=== PATIENT | female | born 1955 | race Caucasian/White ===

== ENCOUNTER 2020-07-11 12:00 | Outpatient (CLI) | payer MEDICARE, OTHER, SELFPAY ==
--- NOTE | ~2020-07-11 | XR_ITS ---
XR_CERV2-3V_CR DATE: 07/11/2020 12:22 INDICATION: Neck pain. Popping sound intermittently on left side of neck. No known injury. TECHNIQUE: AP, open-mouth, lateral views COMPARISON: None FINDINGS: There is severe degenerative disc disease and mild retrolisthesis at C3-4, C4-5 and C5-6. Moderate degenerative disc disease at C2-3 and C6-7. There is prominent bilateral uncovertebral joint spurring at C3-4 through C6-7. C1 and C2 are normally aligned and the odontoid process is intact. No fracture or dislocation, locked facet or prevertebral soft tissue swelling. IMPRESSION: Extensive cervical spondylosis Reviewed, dictated and finalized at Location [facility]. Reviewed, dictated and finalized at location A.
== END 2020-07-11 12:01 | disposition home or self-care (01) ==
LOC: CHSIMG 12:05
PROVIDERS: PCP Internal Medicine; Visit Provider Internal Medicine
DX: M54.2 Cervicalgia (principal)
CPT/HCPCS: 72040

== ENCOUNTER 2020-12-15 07:38 | Outpatient (CLI) | payer MEDICARE, OTHER, SELFPAY ==
--- NOTE | ~2020-12-15 | MM_ITS ---
EXAMINATION: MM screening [facility] BI w ruperto HISTORY: Screening mammogram TECHNIQUE: Craniocaudal and mediolateral oblique 3-D tomosynthesis images were obtained and synthetic 2-D images were generated. CAD analysis was submitted and interpreted. COMPARISON: 11/10/2018, 08/14/2017, 07/24/2017 BREAST PARENCHYMAL COMPOSITION: There are scattered areas of fibroglandular density. FINDINGS: RIGHT BREAST: There is focal asymmetry associated indeterminate calcification in the far posterior th ird of the outer breast 11 cm from the nipple. LEFT BREAST: An asymmetry is present in the middle/posterior third of the outer breast 10 cm from the nipple on the craniocaudal view. IMPRESSION: 1. Bilateral breast findings as described above. 2. Additional mammographic views and possible breast ultrasound are recommended. BI-RADS Category 0: Incomplete: Needs additional imaging evaluation. Reviewed, dictated and finalized at location A. IMPRESSION: 1. Bilateral breast findings as described above. 2. Additional mammographic views and possible breast ultrasound are recommended . BI-RADS Category 0: Incomplete: Needs additional imaging evaluation.
== END 2020-12-15 07:39 | disposition home or self-care (01) ==
LOC: CHSIMG 07:39
PROVIDERS: PCP Internal Medicine; Visit Provider Internal Medicine
DX: Z12.31 Encounter for screening mammogram for malignant neoplasm of breast (principal)
CPT/HCPCS: 77063; 77067

== ENCOUNTER 2020-12-22 09:56 | Outpatient (CLI) | payer MEDICARE, OTHER, SELFPAY ==
--- NOTE | ~2020-12-22 | MMUS_ITS ---
EXAMINATION: MM diagnostic [facility] BI w ruperto, US breast RT limited HISTORY: Focal asymmetry and indeterminate calcifications of the right breast and left breast asymmet ry on screening mammogram TECHNIQUE: Additional 3-D tomosynthesis images of the breasts were performed and synthetic 2-D images were generated. CAD analysis was submitted and interpreted. High resolution limited right breast ult rasound was performed. COMPARISON: 12/15/2020, 11/10/2018, 08/14/2017, 07/24/2017 FINDINGS: MAMMOGRAPHIC FINDINGS: Left breast: There is a return to baseline fibroglandular appearance with spot compression of the lef t breast in the area questioned on screening mammogram. Right breast: There are grouped fine pleomorphic calcifications in the far posterior third of the out er breast at the 9:00 location 12 cm from the nipple. There appears to be an associated approximately 2.0 x 0.7 cm mass with indistinct margins. ULTRASOUND: No definite sonographic correlate is identified for the calcifications and possible mass of the right breast. IMPRESSION: 1. Suspicious right breast calcifications. 2. Stereotactic biopsy is recommended. BI-RADS category 4, suspicious findings. Reviewed, dictated and finalized at location A. IMPRESSION: 1. Suspicious right breast calcifications. 2. Stereotactic biopsy is recommended. BI-RADS category 4, suspicious findings.
== END 2020-12-22 09:57 | disposition home or self-care (01) ==
LOC: CHSIMG 09:58
PROVIDERS: PCP Internal Medicine; Visit Provider Internal Medicine
DX: R92.8 Other abnormal and inconclusive findings on diagnostic imaging of breast (principal)
CPT/HCPCS: 76642; 77062; 77066; G0279

== ENCOUNTER 2021-08-15 15:58 | Outpatient (CLI) | payer MEDICARE, OTHER, SELFPAY ==
--- NOTE | ~2021-08-15 | XR_ITS ---
EXAMINATION: XR shoulder LT min 2V, XR humerus LT DATE: 08/15/2021 16:24 INDICATION: Left shoulder and upper arm pain TECHNIQUE: 1. AP internally and externally rotated, AP oblique externally rotated and transscapular Y views of t he left shoulder were obtained. 2. AP and lateral views of the left humerus were obtained. COMPARISON: None FINDINGS: Normal alignment. No fracture. Glenohumeral joint is normal. Moderate acromioclavicular osteoarthrit is. Soft tissues are unremarkable. Visualized portions of the left lung are clear. Moderate thoracic spondylosis. IMPRESSION: 1. Moderate left acromioclavicular osteoarthritis. 2. Moderate thoracic spondylosis. Reviewed, dictated and finalized at location A. IMPRESSION: 1. Moderate left acromioclavicular osteoarthritis. 2. Moderate thoracic spondylosis.
== END 2021-08-15 15:59 | disposition home or self-care (01) ==
LOC: CHSIMG 16:01
PROVIDERS: PCP Internal Medicine; Visit Provider Internal Medicine
DX: M25.512 Pain in left shoulder (principal); M79.622 Pain in left upper arm; Z85.3 Personal history of malignant neoplasm of breast
CPT/HCPCS: 73030; 73060

== ENCOUNTER 2022-05-02 11:28 | Outpatient (CLI) | payer MEDICARE, OTHER, SELFPAY ==
--- NOTE | ~2022-05-02 | XR_ITS ---
Clinical Indication: Palpitations, dyspnea, history of breast cancer PA and lateral views of the chest: Comparison: None Findings: The lungs are clear, without evidence of focal consolidation or pleural effusion. Cardiome diastinal silhouette is within normal limits. Bones and soft tissues are unremarkable. Impression: Normal chest. Reviewed, dictated and finalized at [facility]. TEGY ANALYST Impression: Normal chest.
== END 2022-05-02 11:29 | disposition home or self-care (01) ==
LOC: CHSIMG 11:31
PROVIDERS: PCP Internal Medicine; Visit Provider Internal Medicine
DX: R00.2 Palpitations (principal); R06.00 Dyspnea, unspecified
CPT/HCPCS: 71046

== ENCOUNTER 2022-05-10 09:16 | Outpatient (CLI) | payer MEDICARE, OTHER, SELFPAY ==
--- NOTE | 2022-05-10 01:00 | ECHO_ITS ---
Patient Info Name: Carolin Randle Age: 67 years : 1955 Gender: Female Ht: 65 in Wt: 180 lbs BSA: 1.96 m2 HR: 80 bpm BP: 168 / 86 mmHg Heart Rhythm: Sinus Rhythm Technical Quality: Fair Exam Date: 05/10/2022 12:51 PM Exam Location: [facility] [place] Patient Status: Outpatient Admit Date: 05/10/2022 Staff Ordering Physician: Pranay Velez MD Vice President Of Product Marketing: Gwen Magaña RDCS Attending Provider: Pranay Velez MD Exam Type: CA echo doppler color flow Study Info Indications R06.00 - Dyspnea, unspecified R00.2 - Palpitations Complete two-dimensional, color flow and Doppler transthoracic echocardiogram is performed. Summary 1. Complete two-dimensional, color flow and Doppler transthoracic echocardiogram is performed. 2. Left ventricular chamber dimension is normal. 3. Left ventricular systolic function is normal, estimated at 65-70%. 4. The left ventricular diastolic function is grade I diastolic dysfunction. 5. E/e' 12 is mildly elevated. 6. There is trace tricuspid valve regurgitation. 7. No pulmonary hypertension, estimated pulmonary arterial systolic pressure is 31 mmHg. Left Ventricle E/e' 12 is mildly elevated. Left ventricular chamber dimension is normal. Left ventricular systolic function is normal, estimated at 65-70%. The left ventricular diastolic function is grade I diastolic dysfunction. Right Ventricle Right ventricular systolic function is normal and with normal TAPSE 1.7 cm. Right ventricular chamber dimension is normal. Left Atria Left atrial chamber dimension is normal. Right Atria Right atrial chamber dimension is normal. Aortic Valve The aortic valve is trileaflet. There is no aortic valve stenosis. There is no aortic valve regurgitation. Pulmonic Valve There is no pulmonic regurgitation. Mitral Valve There is no mitral valve stenosis. There is no mitral valve regurgitation. Tricuspid Valve There is trace tricuspid valve regurgitation. No pulmonary hypertension, estimated pulmonary arterial systolic pressure is 31 mmHg. Pericardium/Pleural There is no pericardial effusion. Inferior Vena Cava Normal inferior vena cava with >50% collapse upon inspiration consistent with normal right atrial pressure, 5 mmHg. Aorta The aortic root size at the sinus of Valsalva is normal. Left Ventricular Outflow Tract Name Value Normal LVOT 2D LVOT Diameter 2.0 cm LVOT Doppler LVOT Peak Velocity 135 cm/s LVOT Peak Gradient 7 mmHg LVOT Mean Gradient 3 mmHg LVOT VTI 29 cm LVOT VTI/AV VTI Ratio 0.8 LVOT Stroke Volume 97 ml Pulmonic Valve Name Value Normal RVOT Doppler RVOT Peak Gradient 3 mmHg PV Doppler
--- NOTE | 2022-06-17 08:27 | WPDHOLTEREM ---
Holter/Event Monitor Holter/Event Monitor Date of procedure: 05/10/22 Holter/Event Procedure: Event Monitor Indications: Palpitations Conclusion: 1. 26 days event monitor between 05/10/22-06/11/22. There are 44 available transmissions for analysis. 2. Underlying rhythm is sinus rhythm. HR range 36-132 bpm; average HR 71 bpm. HR at 36 bpm was on 05/24/22 at 04:55. 3. There are occasional premature supraventricular complexes with total burden of <1%. No supraventricular tachycardia. 4. There are occasional premature ventricular complexes with total burden of <1%. No ventricular tachycardia. 5. No significant pauses greater than 2 seconds. 6. Patient reports 21 episodes of symptoms of heart racing, shortness of breath, lightheadedness which demonstrate sinus rhythm, HR range 84-132 bpm with 3 episodes with PAC's.
== END 2022-05-10 09:17 | disposition home or self-care (01) ==
LOC: CHSIMG 09:17
PROVIDERS: PCP Internal Medicine; Visit Provider Internal Medicine
DX: R00.2 Palpitations (principal); R06.00 Dyspnea, unspecified
CPT/HCPCS: 93270; 93306

== ENCOUNTER 2022-08-14 10:24 | Outpatient (CLI) | payer MEDICARE, OTHER, SELFPAY ==
--- NOTE | ~2022-08-14 | DEXA_ITS ---
Bone Density Report Name: EDUAR BARNEY Age: 67 Sex: Female Ethnicity: White Date of : 1955 Indication: postmenopausal; screening for osteoporosis; height loss; cancer; Referring Provider: UNKNOWN, UNKNOWN Study: Bone densitometry was performed. Exam Date: August 14, 2022 Accession number: [id number] Bone Density: Region BMD T-score Z-score Classification AP Spine(L2, L3, L4) 1.073 -0.1 1.9 Normal Femoral Neck (Left) 0.661 -1.7 0.0 Osteopenia Total Hip (Left) 0.792 -1.2 0.1 Osteopenia Femoral Neck (Right) 0.693 -1.4 0.2 Osteopenia Total Hip (Right) 0.825 -1.0 0.4 Normal Femoral Neck Mean 0.677 -1.5 0.1 Osteopenia Total Hip Mean 0.808 -1.1 0.3 Osteopenia World Health Organization criteria for BMD impression classify patients as: Normal (T-score at or above -1.0), Osteopenia (T-score between -1.0 and -2.5), or Osteoporosis (T-score at or below -2.5). 10-year Fracture Risk(1): Major Osteoporotic Fracture 9.3% Hip Fracture 1.2% Reported Risk Factors: [place] (), Neck BMD=0.661, BMI=31.9 (1) FRAX(R) Version 3.08. Fracture probability calculated for an untreated patient. Fracture probability may be lower if the patient has received treatment. Clinical Information Provided by Patient: Has the following medical conditions: Cancer Patient maximum height was 64 Menopause Age: 45 No regular weight bearing exercise Drinks caffeinated beverages Onset of menses at age 16 Number of children 2 Impression: The patient has low bone mass, based on the Left Femoral Neck T-score. Discussion: BONE DENSITY IS LOW AT ONE OR MORE SKELETAL SITES. This patient's lowest T-score is low at one or more skeletal sites. It meets the World Health Organization's (WHO) criteria for ?low bone mass? (T-score between -1.0 and -2.5). The patient's 10-year risk of fracture as calculated by FRAX is less than the threshold where pharmacological therapy is recommended by the National Osteoporosis Foundation (NOF). However, all treatment decisions require clinical judgment and consideration of individual patient factors, including patient preferences, comorbidities, previous drug use, risk factors not captured in the FRAX model (e.g., frailty, falls, vitamin D deficiency, increased bone turnover, interval significant decline in bone density) and possible under or overestimation of fracture risk by FRAX. The patient should follow a healthful lifestyle (good nutrition with adequate calcium and vitamin D, and appropriate weight-bearing exercise). Follow-Up: Consider repeating this study in 2 to 3 years to reassess this patient's status, or sooner if there is some new clinical indication. Reported by: Dr. Adam Keys on 08/14/2022 10:49:00 AM.
== END 2022-08-14 10:25 | disposition home or self-care (01) ==
LOC: CHSIMG 10:25
PROVIDERS: PCP Internal Medicine
DX: C50.811 Malignant neoplasm of overlapping sites of right female breast (principal); Z17.0 Estrogen receptor positive status [ER+]; Z79.811 Long term (current) use of aromatase inhibitors; M85.89 Other specified disorders of bone density and structure, multiple sites
CPT/HCPCS: 77080

== ENCOUNTER 2023-06-13 07:12 | Outpatient (CLI) | payer MEDICARE, OTHER, SELFPAY ==
--- NOTE | ~2023-06-13 | US_ITS ---
EXAMINATION: US aorta DATE: 06/13/2023 08:07 INDICATION: Abdominal aortic aneurysm screening TECHNIQUE: Grayscale, color Doppler, and pulsed Doppler images of the aorta and common iliac arteries were obtained. COMPARISON: None. FINDINGS: The proximal aorta measures 2.6 cm. The mid aorta measures 2.1 cm. The distal aorta measures 1.6 cm. The right common iliac artery measures 1.1 cm. The left common iliac artery measures 1.0 cm. IMPRESSION: 1. Normal caliber abdominal aorta Reviewed, dictated and finalized at location A. RATORY ANIMAL FACILITY SUPERVISOR
--- NOTE | ~2023-06-13 | XR_ITS ---
AP and lateral views of the right hip Clinical history: Pain Findings: No acute fracture or dislocation is seen. Osseous alignment is anatomic. The right hip join t is preserved. Soft tissues are unremarkable. Impression: No significant abnormality is seen. Reviewed, dictated and finalized at location M. OW SHADE RING COVERER Impression: No significant abnormality is seen.
--- NOTE | ~2023-06-13 | XR_ITS ---
Lumbosacral Spine: AP and lateral views Clinical History: Pain Findings: The normal lordotic curve is maintained. The vertebral bodies and posterior elements are i ntact. There is moderate to advanced degenerative disc narrowing at L3-L4, L4-L5. There is mild air d istended at L5-S1. There is mild facet arthropathy from L4 through S1. The sacroiliac joints are norm ally outlined. Impression: Mild degenerative spondylosis, as above. Reviewed, dictated and finalized at location M. D WASTE LANDFILL TECHNICIAN Impression: Mild degenerative spondylosis, as above.
--- NOTE | ~2023-06-13 | XR_ITS ---
AP and lateral views of the left hip Clinical history: Pain Findings: No acute fracture or dislocation is seen. Osseous alignment is anatomic. Left hip joint is preserved. Soft tissues are unremarkable. Impression: No significant abnormality is seen. Reviewed, dictated and finalized at location M. L OR MOTEL MANAGER Impression: No significant abnormality is seen.
--- NOTE | ~2023-06-13 | XR_ITS ---
Right Knee Technique: AP, lateral, and sunrise views were obtained. Clinical History: Pain Findings: No fracture or dislocation is seen. Osseous alignment is anatomic. Joint spaces are preserv ed without degenerative or erosive change. Soft tissues are unremarkable. No joint effusion is seen. Impression: Unremarkable right knee radiographs. Reviewed, dictated and finalized at location . [facility] Impression: Unremarkable right knee radiographs.
--- NOTE | ~2023-06-13 | XR_ITS ---
Left Knee Technique: AP, lateral, and sunrise views were obtained. Clinical History: Pain Findings: No fracture or dislocation is seen. Osseous alignment is anatomic. Joint spaces are preserv ed without degenerative or erosive change. Soft tissues are unremarkable. No joint effusion is seen. Impression: Unremarkable left knee radiographs. Reviewed, dictated and finalized at location . TAL SLICER Impression: Unremarkable left knee radiographs.
--- NOTE | ~2023-06-13 | US_ITS ---
EXAMINATION: US arterial ankle brachial ind DATE: 06/13/2023 08:07 INDICATION: Peripheral arterial occlusive disease with bilateral lower limb pain and claudication. TECHNIQUE: Segmental pressures and plethysmographic and Doppler waveforms of the brachial and lower e xtremity arteries were obtained. COMPARISON: None. FINDINGS: Right and left brachial artery pressures of 153 mm Hg and 153 mm Hg, respectively, are concordant (no rmal difference <= 30 mmHg). The right ankle-brachial index ([place]) is 1.11 (normal >= 0.9-1.0). The right great toe-brachial index (TBI) is 1.18 (normal >= 0.65). Arterial Doppler waveforms biphasic at the right dorsalis pedis arter y and triphasic at the right posterior tibial artery with brisk systolic upstrokes at both right post erior tibial and dorsalis pedis arteries. The left [place] is 1.16. The left TBI is 1.12. Arterial Doppler waveforms are biphasic with brisk systol ic upstrokes at both left posterior tibial and dorsalis pedis arteries. IMPRESSION: 1. No significant arterial occlusive disease with normal bilateral ABIs and TBIs. Reviewed, dictated and finalized at location A. ICE CENTER TECHNICIAN IMPRESSION: 1. No significant arterial occlusive disease with normal bilateral ABIs and TBI s.
== END 2023-06-13 07:13 | disposition home or self-care (01) ==
LOC: CHSIMG 07:16
PROVIDERS: PCP Internal Medicine; Visit Provider Internal Medicine
DX: I73.9 Peripheral vascular disease, unspecified (principal); I71.40 Abdominal aortic aneurysm, without rupture, unspecified; I67.1 Cerebral aneurysm, nonruptured; M43.06 Spondylolysis, lumbar region
CPT/HCPCS: 72100; 73502; 73562; 76775; 93922

== ENCOUNTER 2023-06-19 09:47 | Outpatient (CLI) | payer MEDICARE, OTHER, SELFPAY ==
--- NOTE | ~2023-06-19 | MR_ITS ---
EXAMINATION: MRA neck wo con, MRA brain wo con DATE: 06/19/2023 10:45 INDICATION: Family members with intracranial aneurysm TECHNIQUE: 1. Magnetic resonance angiography (MRA) of the brain was performed without intravenous contrast by th e 3D [id number] technique. 2. Magnetic resonance angiography (MRA) of the neck was performed without intravenous contrast. Seque nces included axial 3D-time of flight T1-weighted FSPGR. COMPARISON: None. FINDINGS: Head MRA: There is normal flow related signal seen within the vertebral, basilar and internal carotid arteries. The vertebral arteries are codominant. There is no proximal stenosis. There are no aneurysms identi fied. Both A1 and P1 segments are patent. Flow in the cerebral arteries is symmetric. Neck MRA: There is 0% stenosis of the right carotid bulb relative to normal distal artery lumen diameter (NASCE T criteria). There is 0% stenosis of the left carotid bulb relative to normal distal artery lumen di ameter. The vertebral arteries are codominant with no evident hemodynamically significant stenosis. M oderate cervical spondylosis. IMPRESSION: 1. 0% stenosis of the right carotid bulb relative to normal distal artery lumen diameter (NASCET crit eria). 2. 0% stenosis of the left carotid bulb relative to normal distal artery lumen diameter. 3. Unremarkable cerebral MR angiogram with no evident hemodynamically significant stenosis or aneurys m. Reviewed, dictated and finalized at location A. MOTIVE REPAIRER DIESEL IMPRESSION: 1. 0% stenosis of the right carotid bulb relative to normal distal artery lumen diameter (NASCET criteria). 2. 0% stenosis of the left carotid bulb relative to normal distal artery lumen diameter. 3. Unremarkable cerebral MR angiogram with no evident hemodynamically significa nt stenosis or aneurysm.
== END 2023-06-19 09:48 | disposition home or self-care (01) ==
LOC: CHSIMG 09:48
PROVIDERS: PCP Internal Medicine; Visit Provider Internal Medicine
DX: I73.9 Peripheral vascular disease, unspecified (principal); I67.1 Cerebral aneurysm, nonruptured
CPT/HCPCS: 70544; 70547

== ENCOUNTER 2024-02-23 08:44 | Inpatient (IN) | payer MEDICARE, OTHER, SELFPAY ==
[2024-02-23] VITALS (17 sets, daily range): BP systolic 118–157; BP diastolic 51–82; PULSE 87–114; RESP 16–24; TEMP 36.5–37.8; O2SAT 88–97; BMI 29.9
--- NOTE | ~2024-02-23 | CT_ITS ---
EXAMINATION: CTA chest PE protocol DATE: 02/23/2024 11:37 INDICATION: Shortness of breath. Hypoxia. Tachycardia. TECHNIQUE: Computed tomography angiography (CTA) of the chest was performed with 100 mL Omnipaque-350 intravenous contrast timed to evaluate the pulmonary arteries. Coronal maximum intensity projection 3D-reconstructions were created by the technologist. Automated exposure control and iterative reconst ruction technique were employed. The dose-length product was 282.43 mGy-cm. COMPARISON: Chest 2 views 02/23/2024 FINDINGS: There are airspace and groundglass opacities in the lower lobes, consistent with pneumonia. There are trace pleural effusions. There is a 7 mm nodule in left thyroid lobe, likely not clinicall y significant. The heart size is normal. No pericardial effusion. There is no pulmonary embolus. Ther e is mild mediastinal and bilateral hilar lymphadenopathy, likely reactive. There is severe thoracic spondylosis. IMPRESSION: 1. Bilateral lower lobe pneumonia. 2. Mild mediastinal and bilateral hilar lymphadenopathy, likely reactive. 3. No pulmonary embolus. Reviewed, dictated and finalized at location B.
--- NOTE | ~2024-02-23 | XR_ITS ---
EXAMINATION: XR chest 2V DATE: 02/23/2024 09:12 INDICATION: Cough, shortness of breath TECHNIQUE: frontal and lateral views of the chest were obtained. COMPARISON: Chest radiograph dated 05/02/2022 FINDINGS: Patchy airspace opacities in the posterior lower lung zones. No pleural effusion or pneumothorax. The cardiomediastinal silhouette is normal. Moderate thoracic spondylosis. IMPRESSION: 1. Patchy airspace opacities at the inferior lower lung zones consistent with atelectasis and/or pneu monia. Reviewed, dictated and finalized at location A. IMPRESSION: 1. Patchy airspace opacities at the inferior lower lung zones consistent with a telectasis and/or pneumonia.
--- NOTE | 2024-02-23 08:59 | ECG_ITS ---
Test Date: 2024-02-23 09:17:56 Measurements Intervals [place] Rate: 106 P: 67 [place]: 154 QRS: 40 QRSD: 82 T: 73 QT: 317 QTc: 421 Interpretive Statements SINUS TACHYCARDIA No previous ECG available for comparison Electronically Signed On 02-24-2024 09:36:43 CDT by Carlos Howell M.D.
--- NOTE | 2024-02-23 09:01 | ED.URI ---
HPI - URI/Sore Throat General Chief Complaint: Upper Respiratory Infection Stated Complaint: Cold Symptoms Time Seen by Provider: 02/23/24 08:51 Source: patient Mode of arrival: ambulatory Limitations: no limitations History of Present Illness HPI Narrative: 69 years old white female came to the emergency room by private car complaining of feeling bad all over, had cold symptoms over 2 weeks ago, getting worse, currently productive cough of yellowish sputum, can not stand up can not walk because of general weakness. Patient reports nasal and postnasal discharge, hoarseness of voice. History of hypertension, hyperlipidemia, breast cancer status post management over 3 years ago Patient denies sick contact, scheduled to see her family physician in few hours today. Related Data Home Medications Medication Instructions Recorded Confirmed anastrozole 1 mg tablet 1 mg PO DAILY 02/23/24 02/23/24 aspirin 81 mg chewable tablet 81 mg PO DAILY 02/23/24 02/23/24 atorvastatin 20 mg tablet 20 mg PO DAILY 02/23/24 02/23/24 diltiazem HCl 300 mg 300 mg PO DAILY 02/23/24 02/23/24 capsule,extended release 24 hr lisinopril 20 1 tablet PO DAILY 02/23/24 02/23/24 mg-hydrochlorothiazide 12.5 mg tablet magnesium 250 mg tablet 250 mg PO DAILY 02/23/24 02/23/24 venlafaxine 37.5 mg 37.5 mg PO DAILY 02/23/24 02/23/24 capsule,extended release 24 hr Allergies Allergy/AdvReac Type Severity Reaction Status Date / Time triamterene Allergy Hives Verified 02/23/24 08:50 Review of Systems Review of Systems: All systems reviewed & are unremarkable except as noted in HPI and below Exam Narrative: General appearance: Well-developed, well-nourished Skin: Normal color Head: Normocephalic, nontraumatic Eyes: Clear conjunctiva ENT: Oropharynx normal, ears normal, nose normal Neck: Supple, nontender Chest and respiratory: Airway patent, no respiratory distress, no accessory muscle use , intermittent productive cough Heart: Regular rate/rhythm Abdomen: Soft, nontender, no organomegaly, quiet bowel sounds Vascular: Normal peripheral pulses, normal capillary refill. Musculoskeletal: Normal range of motion, nontender back Neurologic: Alert and oriented ?3, WIRE WEAVER HELPER is normal as tested, no gross motor deficit Course Vital Signs Vital signs: Vital Signs Temperature 37.7 C H 02/23/24 08:44 Pulse Rate 114 H 02/23/24 08:44 Respiratory Rate 24 H 02/23/24 08:44 Blood Pressure 157/82 H 02/23/24 08:44 Pulse Oximetry 91 02/23/24 08:44 Oxygen Delivery Room Air 02/23/24 08:44 Temperature 37.7 C H 02/23/24 08:55 Pulse Rate 104 H 02/23/24 09:35 Respiratory Rate 20 02/23/24 09:35 Blood Pressure 157/82 H 02/23/24 08:55 Pulse Oximetry 95 02/23/24 09:35 Oxygen Delivery Room Air 02/23/24 08:55 MDM - URI/Sore Throat MDM Narrative Medical decision making narrative: patient came to the ED by private car complaining of productive cough and cold symptoms started over 2 weeks ago and gradually getting worse. Vital signs showing heart rate of 114, blood pressure 157/82, temperature 37.7? Physical examination showing ill looking patient, was intermittent productive cough Differential diagnosis respiratory viral infection, secondary bacterial infection, pneumonia, electrolyte imbalance, dehydration Differential Diagnosis Differential diagnosis: Likely upper respiratory infection, otitis media, sinusitis, bronchitis and other (Pneumonia) Medical Records Attestation: I reviewed the patient's medical records. Lab Data Attestation: I reviewed the patient's lab results. 02/23/24 09:23 02/23/24 09:23 Labs: Lab Results 02/23/24 02/23/24 Range/Units 09:13 09:23 WBC 13.0 H (4.8-10.8) K/mm3 RBC 3.90 L (4.20-5.40) M/mm3 Hgb 11.6 L (11.7-13.8) g/dL Hct 34.6 L (35.0-42.0) % MCV 88.7 (78.0-102.0) fL MCH 29.7 (27.0-31.0) pg MCHC 33.5 (32-36) g/dL RDW 12.4 (11.6-14.4) % Plt Count 384 (150-420) K/mm3 MPV 9.4 (9.2-11.8) fl Immature Gran % (Auto) 1.2 H (0.0-0.0) % Neut % (Auto) 83.6 H (50.0-70.0) % Lymph % (Auto) 6.0 L (18.0-42.0) % [place] % (Auto) 8.9 (2.0-11.0) % Eos % (Auto) 0.1 L (1.0-6.0) % Baso % (Auto) 0.2 (0.0-1.0) % Lymph # (Auto) 0.78 L (1.10-4.50) K/mm3 [place] # (Auto) 1.16 H (0.10-0.90) K/mm3 Eos # (Auto) 0.01 L (0.02-0.50) K/mm3 Baso # (Auto) 0.03 (0.00-0.10) K/mm3 Abs Immat Gran (auto) 0.15 H (0.00-0.00) K/mm3 Absolute Neuts (auto) 10.87 H (1.70-7.20) K/mm3 Absolute Nucleated RBC 0.00 (0.00-0.00) K/mm3 Nucleated RBC % 0.0 (0-0.0) % PT Pending INR Pending APTT Pending Sodium Pending Potassium Pending Chloride Pending Carbon Dioxide Pending Anion Gap Pending BUN Pending Creatinine Pending Estim Creat Clear Calc Pending Estimated GFR Pending Glucose Pending Calculated Osmolality Pending Lactic Acid Pending Calcium Pending Total Bilirubin Pending AST Pending ALT Pending Alkaline Phosphatase Pending C-Reactive Protein Pending Total Protein Pending Albumin Pending Influenza A (RT-PCR) Pending Influenza B (RT-PCR) Pending RSV (RT-PCR) Pending SARS-CoV-2 RNA (RT-PCR) Pending ECG Data EKG #1: Attestation: I personally reviewed and interpreted this ECG as follows: ECG completion date: 02/23/24 ECG completion time: 09:21 Interpretation: sinus tachycardia at 106 beats per minute., abnormal rhythm EKG Critical Care Time Critical Care Time Critical Care Time: No Discharge Plan Discharge Patient Disposition: Still a Patient Prescriptions: No Action anastrozole 1 mg tablet 1 mg PO DAILY venlafaxine 37.5 mg capsule,extended release 24hr 37.5 mg PO DAILY atorvastatin 20 mg tablet 20 mg PO DAILY lisinopril-hydrochlorothiazide 20-12.5 mg tablet 1 tablet PO DAILY diltiazem HCl 300 mg capsule,extended release 24hr 300 mg PO DAILY aspirin 81 mg tablet,chewable 81 mg PO DAILY magnesium 250 mg Tablet 250 mg PO DAILY Follow-up/Referrals: Pranay eVlez MD [Primary Care Provider] -
[2024-02-23] MEDS: ALBUTEROL SULFATE NEB 2.5 MG/3 ML INH INHALATION (09:31)
[2024-02-23] MEDS: ACETAMINOPHEN 325 MG TABLET 650 MG PO ×2 (09:38→20:59)
[2024-02-23 09:44] LABS: Basophils Absolute Auto 0.03 K/mm3 (0.00-0.10); Basophils Percent Auto 0.2 % (0.0-1.0); Eosinophils Absolute Auto 0.01 K/mm3 (0.02-0.50); Eosinophils Percent Auto 0.1 % (1.0-6.0); Hematocrit 34.6 % (35.0-42.0); Hemoglobin 11.6 g/dL (11.7-13.8); Immature Granulocyte Absolute 0.15 K/mm3 (0.00-0.00); Immature Granulocyte Percent A 1.2 % (0.0-0.0); Lymphocytes Absolute Auto 0.78 K/mm3 (1.10-4.50); Mean Corpuscular HGB Conc 33.5 g/dL (32-36); Mean Corpuscular Hemoglobin 29.7 pg (27.0-31.0); Mean Corpuscular Volume 88.7 fL (78.0-102.0); Mean Platelet Volume 9.4 fl (9.2-11.8); Monocytes Absolute Auto 1.16 K/mm3 (0.10-0.90); Monocytes Percent Auto 8.9 % (2.0-11.0); Neutrophils Absolute Auto 10.87 K/mm3 (1.70-7.20); Neutrophils Percent Auto 83.6 % (50.0-70.0); Platelet Count Result 384 K/mm3 (150-420); Red Cell Distribution Width 12.4 % (11.6-14.4)
[2024-02-23 09:51] LABS: SARS-CoV-2 RNA PCR Negative (Negative)
[2024-02-23 09:52] LABS: INR 1.2; Partial Thromboplastin Time 34.7 Sec (23.9-30.70); Prothrombin Time 13.2 Seconds (9.50-12.1)
[2024-02-23 09:54] LABS: Influenza A QL RT-PCR Negative (Negative); Influenza B QL RT-PCR Negative (Negative); RSV RNA, RT-PCR Negative (Negative)
[2024-02-23 09:54] LABS: Alanine Aminotransferase 29 U/L (14-59); Albumin Level 2.5 g/dL (3.4-5.0); Alkaline Phosphatase 110 U/L (46-116); Anion Gap 12 mmol/L (4-12); Aspartate Amino Transferase 30 U/L (15-37); Bilirubin,Total 0.7 mg/dL (0.00-1.00); Blood Urea Nitrogen 11 mg/dL (7-18); Calcium 8.8 mg/dL (8.5-10.1); Carbon Dioxide 29 mmol/L (21-32); Chloride 97 mmol/L (98-108); Estimated CRCL calculation 48 ml/min; Estimated Glomerular Filt Rate 55; Glucose 109 mg/dL (70-99); Osmolality Calculated 286 mOsm/kg (285-295); Potassium 3.4 mmol/L (3.5-5.1); Sodium 138 mmol/L (136-145); Total Protein 7.3 g/dL (6.4-8.2)
[2024-02-23 09:57] LABS: CRP 23.5 mg/dL (0.0-0.9)
--- NOTE | 2024-02-23 09:57 | PC.NURSE ---
PT IS LYING ON STRETCHER WITH AT BEDSIDE. PT IS AWAITING ADMISSION TO [facility] FOR [facility]NEUMONIA. PT DENIES ANY NEEDS OR COMPLAINTS, IS AWARE OF PLAN OF CARE. PT HAS IV MEDICATIONS INFUSING WITHOUT DIFFICULTY. NAD NOTED. VSS PER MONITOR. WILL CONTINUE TO MONITOR.
[2024-02-23 09:59] LABS: Lactic Acid Reflex 1.4 mmol/L (0.4-2.0)
--- NOTE | 2024-02-23 09:59 | PC.NURSE ---
PT IS TO BE ADMITTED TO ROOM 204, PT AND UPDATED ON STATUS. BELONGINGS LIST COMPLETED.
[2024-02-23] MEDS: AZITHROMYCIN 500 MG/NS 250 ML 500 MG/250 ML BAG 250 MG IVPB (10:10)
--- NOTE | 2024-02-23 10:55 | P.HP_ITS ---
H&P: HPI History of Present Illness Date/Time: 02/23/24 10:55 Chief Complaint: SOB/Productive Cough Narrative: patient is a 69-year-old female who presented to the emergency department via private vehicle with complaints of worsening shortness of breath and productive cough. Patient reports symptoms began about 2 weeks ago with cough and shortness of breath she thought it was just a upper respiratory infection and had taken some OTC cough medicine. Patient presents today with no relief of symptoms and worsening productive cough. Patient's past medical history includes hypertension and hyperlipidemia and past medical history breast cancer. patient denied any chest pain, fever chills prior to admission but did endorse nausea, shortness of breath and productive cough. Initial findings in the emergency department showed patient to be tachycardic, tachypnea, febrile, with leukocytosis, and CXR showing patchy ear spaces and opacities in inferior lower lung zones suggestive of pneumonia. patient was also found to be hypoxic at 80% on room air she will be admitted to the medical unit for acute respiratory failure with hypoxia secondary to pneumonia and sepsis without septic shock. Review of Systems Review of Systems: All systems reviewed & are unremarkable except as noted in HPI and below PMFSH Family History Family History Other Acute myocardial infarction Cerebrovascular accident Hypertension Social History Social History Smoking status: Never smoker Alcohol intake: never Substance use: never Substance use type: does not use Do You Feel Safe in your Home?: Yes Lack of Transportation: YES Lack of Food: Never True Current Housing: I Have Housing Concerned About Future Housing: No Difficulty Paying Gas/Electric Bills: No Difficulty Paying for Meds: No Currently Unemployed: No Education: High School Diploma/GED Difficulty w/ Childcare or Family Care: No Spiritual care concerns: No Meds Home Medications and Allergies Home Medications Medication Instructions Recorded Confirmed Type anastrozole 1 mg tablet 1 mg PO DAILY 02/23/24 02/23/24 History aspirin 81 mg chewable tablet 81 mg PO DAILY 02/23/24 02/23/24 History atorvastatin 20 mg tablet 20 mg PO DAILY 02/23/24 02/23/24 History diltiazem HCl 300 mg 300 mg PO DAILY 02/23/24 02/23/24 History capsule,extended release 24 hr lisinopril 20 1 tablet PO DAILY 02/23/24 02/23/24 History mg-hydrochlorothiazide 12.5 mg tablet magnesium 250 mg tablet 250 mg PO DAILY 02/23/24 02/23/24 History venlafaxine 37.5 mg 37.5 mg PO DAILY 02/23/24 02/23/24 History capsule,extended release 24 hr Allergies Allergy/AdvReac Type Severity Reaction Status Date / Time triamterene Allergy Hives Verified 02/23/24 08:50 Vital Signs Vital Signs - 24 hr 02/23/24 08:44 02/23/24 08:44 02/23/24 08:44 Temperature 99.8 F H Pulse Rate 114 H Respiratory Rate 24 H Blood Pressure 157/82 H Pulse Oximetry 91 Oxygen Delivery Room Air Room Air Room Air 02/23/24 09:28 02/23/24 09:35 02/23/24 08:50 Temperature Pulse Rate 105 H 104 H 110 H Respiratory Rate 16 20 19 Blood Pressure 157/82 H Pulse Oximetry 95 95 91 Oxygen Delivery 02/23/24 09:01 02/23/24 09:11 02/23/24 09:16 Temperature Pulse Rate 107 H 108 H Respiratory Rate 21 H 17 Blood Pressure 131/76 149/75 H 129/65 Pulse Oximetry 90 92 90 Oxygen Delivery 02/23/24 09:46 02/23/24 10:01 02/23/24 10:11 Temperature 100.0 F H Pulse Rate 104 H 105 H Respiratory Rate 20 18 22 H Blood Pressure 127/74 130/69 Pulse Oximetry 88 L 92 90 Oxygen Delivery Room Air Room Air 02/23/24 08:55 Temperature 99.8 F H Pulse Rate 114 H Respiratory Rate 24 H Blood Pressure 157/82 H Pulse Oximetry 91 Oxygen Delivery Room Air Exam Narrative: * GENERAL: Pleasant Alert and oriented x 3. female in No acute distress. * EYES: EOMI. No scleral icterus. PERRLA. * HEENT: Moist mucous membranes. * LUNGS: Tachypnea, productive cough, use of accessory muscle, Rhonchi bilateral LL * CARDIOVASCULAR: Tachycardia and rhythm. No murmur. No JVD. S1-S2 * ABDOMEN: Soft, non tenderness and non-distended. No palpable masses. * EXTREMITIES: No edema. Non-tender * SKIN: No rashes or lesions. Skin warm, dry. * NEUROLOGIC: No focal neurological deficits. CN II-XII grossly intact * PSYCHIATRIC: Appropriate mood and affect. Good judgement and insight. H&P: Results Labs Labs: Short CBC 02/23/24 Range/Units 09:23 WBC 13.0 H (4.8-10.8) K/mm3 Hgb 11.6 L (11.7-13.8) g/dL Hct 34.6 L (35.0-42.0) % Plt Count 384 (150-420) K/mm3 BMP 02/23/24 09:23 Sodium 138 Potassium 3.4 L Chloride 97 L Carbon Dioxide 29 BUN 11 Creatinine 1.00 Glucose 109 H Calcium 8.8 Liver Function 02/23/24 Range/Units 09:23 Total Bilirubin 0.7 (0.00-1.00) mg/dL AST 30 (15-37) U/L ALT 29 (14-59) U/L Alkaline Phosphatase 110 (46-116) U/L Albumin 2.5 L (3.4-5.0) g/dL Imaging Chest x-ray: Radiologist's impression: EXAMINATION: XR chest 2V DATE: 02/23/2024 09:12 INDICATION: Cough, shortness of breath TECHNIQUE: frontal and lateral views of the chest were obtained. COMPARISON: Chest radiograph dated 05/02/2022 FINDINGS: Patchy airspace opacities in the posterior lower lung zones. No pleural effusion or pneumothorax. The cardiomediastinal silhouette is normal. Moderate thoracic spondylosis. IMPRESSION: 1. Patchy airspace opacities at the inferior lower lung zones consistent with atelectasis and/or pneumonia. Assessment and Plan Assessment and plan (1) Sepsis without septic shock: Code(s): A41.9 - Sepsis, unspecified organism Status: Acute Assessment and Plan: * Without septic shock secondary to Pneumonia * Tachycardia, tachypnea, febrile, Leukocytosis, and CXR with Pneumonia * Rocephin and azithromycin * Monitor lactic acid levels q6hr. 1.2 POA * Repeat CBC, CMP. * Two sets of blood cultures pending * C-reactive proteins elevated * PTT and PT, INR. * Cardiac monitoring (2) Acute respiratory failure with hypoxia: Code(s): J96.01 - Acute respiratory failure with hypoxia Status: Acute Assessment and Plan: * SPO2 88% on RA POA * improved with supplemental oxygen 2L wean as tolerated * Secondary to bilateral pneumonia * Duonebs * azithromycin and Rocephin * DuoNebs * CTA pending to R/O PE (3) Community acquired pneumonia: Code(s): J18.9 - Pneumonia, unspecified organism Status: Acute Assessment and Plan: * Bronchodilators. * Chest x-ray bilateral Opacities * incentive spirometry while awake. * sputum culture ordered * influenza/COVID/RSV negative * Legionella, pneumococcal, mycoplasma * mucolytics * antipyretics * Rocephin and azithromycin * MRSA pending * supplemental oxygen therapy to maintain oxygen 92% * CMP/CBC daily * IV fluids x 1L mildly dehydrated (4) Hypertension: Code(s): I10 - Essential (primary) hypertension Status: Acute Assessment and Plan: * Stable * Resumed * Cardizem/ hydrochlorothiazide and lisinopril * monitor BP per unit protocol (5) Hyperlipidemia: Code(s): E78.5 - Hyperlipidemia, unspecified Status: Acute Assessment and Plan: * resumed Statin (6) Hypokalemia: Code(s): E87.6 - Hypokalemia Status: Acute Assessment and Plan: * 3.4 POA * 40meq * repeat BMP * cardiac monitoring Plan Code status: Full code per patient DVT prophylaxis: Lovenox Stress ulcer prophylaxis: Protonix 40 daily PT/OT notes: Ambulatory Disposition: patient was admitted to the medical unit for acute respiratory failure with hypoxia secondary to sepsis without septic shock from bilateral pneumonia. will continue with IV antibiotic therapy, DuoNebs mucolytics pending cultures will deescalate antibiotics per cultures and continue to wean oxygen as tolerated. patient is ambulatory plan will be to discharge to home when medically stable. Quality VTE Prophylaxis VTE prophylaxis: pharmacologic ordered -Patient's previous records reviewed on admission -ER notes reviewed in detail on admission -discussed all findings and current treatment plan with patient/Family/POA -Consultations reviewed for recommendations -Patient's disposition for safe discharge discussed with case repairer Dictation performed by [employer] direct speech recognition software, therefore dispensing lead variants and typographical errors may occur. Hospitalist MIPS Advance Care Plan I have confirmed that the patient's Advanced Care Plan is present, code status is documented, or surrogate decision maker is listed in patient medical record.: Yes Medication Reconciliation I have utilized all available resources to obtain, update and review the patients current medications (includes all prescriptions, OTC, herbals, cannabis, and nutritional supplements).: Yes The patient is not eligible for med reconciliation; the patient is in a emergent medical situation where delaying treatment would jeopardize the patients health.: No
--- NOTE | 2024-02-23 10:57 | ADMGEN ---
This patient, Carolin Randle, was admitted to 2nd Floor Room 204-1. Patient/family oriented to hospital policies and general routines including ID bracelet, bed and alarms, visiting hours, pain management, procedures, bathroom and other care routines, personal items, smoking policy, room service/diet, and visiting hours. Information on how to activate the Rapid Response Team has been discussed. Patient/Family are encouraged to report perceived risks to care and to ask questions if they do not understand what they are told or what they should do.
[2024-02-23] MEDS: dilTIAZem HCL CD 120 MG CAP.24HR PO (11:18)
[2024-02-23] MEDS: MAGNESIUM OXIDE 400 MG TABLET PO (11:20)
[2024-02-23] MEDS: VENLAFAXINE HCL XR 37.5 MG CAP PO (11:20)
[2024-02-23] MEDS: ATORVASTATIN 10 MG TABLET 20 MG PO (11:20)
[2024-02-23] MEDS: ASPIRIN 81 MG CHEWABLE TABLET PO (11:21)
[2024-02-23] MEDS: POTASSIUM CHLORIDE 20 MEQ ER TABLET 40 MEQ PO (11:21)
[2024-02-23] MEDS: dilTIAZem HCL CD 180 MG CAP.24HR PO (11:22)
--- NOTE | 2024-02-23 11:27 | PC.NURSE ---
Left floor for CT scan.
[2024-02-23 11:37] LABS: Magnesium 1.8 mg/dL (1.8-2.4)
[2024-02-23] MEDS: SODIUM CHLORIDE 0.9% IV 1,000 ML 100 ML IV CONT (11:57)
[2024-02-23] MEDS: IPRATROPIUM 0.5 MG/ALBUTEROL SULFATE 2.5 MG AMPUL.NEB 3 ML INHALATION ×2 (13:25→16:32)
[2024-02-23 13:44] LABS: MRSA (PCR) NOT DETECTED (NOT DETECTE)
[2024-02-23] MEDS: BENZONATATE 100 MG CAPSULE PO (16:45)
[2024-02-23] MEDS: guaiFENesin 12 HR 600 MG TABCR 1200 MG PO (20:54)
[2024-02-24] VITALS (20 sets, daily range): BP systolic 107–131; BP diastolic 50–70; PULSE 68–94; RESP 16–20; TEMP 36.3–37.8; O2SAT 87–97
[2024-02-24] MEDS: IPRATROPIUM 0.5 MG/ALBUTEROL SULFATE 2.5 MG AMPUL.NEB 3 ML INHALATION ×4 (00:47→16:40)
[2024-02-24] MEDS: BENZONATATE 100 MG CAPSULE PO ×2 (01:28→20:21)
[2024-02-24 05:45] LABS: Basophils Absolute Auto 0.04 K/mm3 (0.00-0.10); Basophils Percent Auto 0.3 % (0.0-1.0); Eosinophils Absolute Auto 0.07 K/mm3 (0.02-0.50); Eosinophils Percent Auto 0.6 % (1.0-6.0); Hematocrit 28.5 % (35.0-42.0); Hemoglobin 9.5 g/dL (11.7-13.8); Immature Granulocyte Absolute 0.07 K/mm3 (0.00-0.00); Immature Granulocyte Percent A 0.6 % (0.0-0.0); Lymphocytes Absolute Auto 1.04 K/mm3 (1.10-4.50); Lymphocytes Percent Auto 8.8 % (18.0-42.0); Mean Corpuscular HGB Conc 33.3 g/dL (32-36); Mean Corpuscular Hemoglobin 29.8 pg (27.0-31.0); Mean Corpuscular Volume 89.3 fL (78.0-102.0); Mean Platelet Volume 9.3 fl (9.2-11.8); Monocytes Absolute Auto 0.95 K/mm3 (0.10-0.90); Neutrophils Absolute Auto 9.66 K/mm3 (1.70-7.20); Neutrophils Percent Auto 81.7 % (50.0-70.0); Platelet Count Result 333 K/mm3 (150-420); Red Blood Count 3.19 M/mm3 (4.20-5.40); Red Cell Distribution Width 12.7 % (11.6-14.4); White Blood Count 11.8 K/mm3 (4.8-10.8)
[2024-02-24 06:02] LABS: Alanine Aminotransferase 47 U/L (14-59); Albumin Level 2.1 g/dL (3.4-5.0); Alkaline Phosphatase 102 U/L (46-116); Anion Gap 9 mmol/L (4-12); Aspartate Amino Transferase 51 U/L (15-37); Bilirubin,Total 0.5 mg/dL (0.00-1.00); Blood Urea Nitrogen 9 mg/dL (7-18); Calcium 8.5 mg/dL (8.5-10.1); Carbon Dioxide 29 mmol/L (21-32); Chloride 103 mmol/L (98-108); Estimated CRCL calculation 51 ml/min; Estimated Glomerular Filt Rate 60; Glucose 96 mg/dL (70-99); Osmolality Calculated 290 mOsm/kg (285-295); Potassium 3.8 mmol/L (3.5-5.1); Sodium 141 mmol/L (136-145); Total Protein 6.2 g/dL (6.4-8.2)
--- NOTE | 2024-02-24 08:10 | P.PNIM_ITS ---
Progress Note: A&P Assessment and Plan (1) Sepsis without septic shock: Code(s): A41.9 - Sepsis, unspecified organism Status: Acute Assessment and Plan: * Without septic shock secondary to Pneumonia * Sputum culture penidng * Tachycardia, tachypnea, febrile, Leukocytosis, and CXR with Pneumonia * Rocephin and azithromycin * Monitor lactic acid levels q6hr. 1.2 POA * Repeat CBC, CMP. * Two sets of blood cultures pending * C-reactive proteins elevated * PTT and PT, INR. * Cardiac monitoring (2) Acute respiratory failure with hypoxia: Code(s): J96.01 - Acute respiratory failure with hypoxia Status: Acute Assessment and Plan: * SPO2 88% on RA POA * improved with supplemental oxygen 2L wean as tolerated * Secondary to bilateral pneumonia * Duonebs * azithromycin and Rocephin * DuoNebs * CTA pending to R/O PE 02/24/2024 * desaturation need to 2 supplemental oxygen to maintain 92% * CTA negative for PE (3) Community acquired pneumonia: Code(s): J18.9 - Pneumonia, unspecified organism Status: Acute Assessment and Plan: * Bronchodilators. * Chest x-ray bilateral Opacities * incentive spirometry while awake. * sputum culture ordered * influenza/COVID/RSV negative * Legionella, pneumococcal, mycoplasma * mucolytics * antipyretics * Rocephin and azithromycin * MRSA pending * supplemental oxygen therapy to maintain oxygen 92% * CMP/CBC daily * IV fluids x 1L mildly dehydrated 02/24/2024 * Bilateral pneumonia on CT * sputum pending * blood cultures NGTD (4) Hypertension: Code(s): I10 - Essential (primary) hypertension Status: Acute Assessment and Plan: * Stable * Resumed * Cardizem/ hydrochlorothiazide and lisinopril * monitor BP per unit protocol (5) Hyperlipidemia: Code(s): E78.5 - Hyperlipidemia, unspecified Status: Acute Assessment and Plan: * resumed Statin (6) Hypokalemia: Code(s): E87.6 - Hypokalemia Status: Acute Assessment and Plan: * 3.4 POA * 40meq * repeat BMP * cardiac monitoring RESOLVED Plan Code status: Full code per patient DVT prophylaxis: Lovenox Stress ulcer prophylaxis: Protonix 40 daily PT/OT notes: Ambulatory Disposition: patient was admitted to the medical unit for acute respiratory failure with hypoxia secondary to sepsis without septic shock from bilateral pneumonia. will continue with IV antibiotic therapy, DuoNebs mucolytics pending cultures will deescalate antibiotics per cultures and continue to wean oxygen as tolerated. patient is ambulatory plan will be to discharge to home when medically stable. Time Spent With Patient Time with patient: 15 - 25 minutes Subjective Date/time seen: 02/24/24 08:10 Interval history: Patient is a 69-year-old female who was admitted for acute respiratory failure with hypoxia secondary to bilateral pneumonia with sepsis 02/24/2024 Patient still SOB with productive cough worse with exertion. Now on supplemental oxygen 2 LNC to maintain 92%. Reported back pain but chronic Acetaminophen helped. Denied CP, N/V, or ABD pain at this time. Review of Systems Review of Systems: All systems reviewed & are unremarkable except as noted in HPI and below Exam Narrative: * GENERAL: Pleasant Alert and oriented x 3. female in No acute distress. * EYES: EOMI. No scleral icterus. PERRLA. * HEENT: Moist mucous membranes. * LUNGS: Tachypnea, productive cough, use of accessory muscle, Rhonchi bilateral LL * CARDIOVASCULAR: Tachycardia and rhythm. No murmur. No JVD. S1-S2 * ABDOMEN: Soft, non tenderness and non-distended. No palpable masses. * EXTREMITIES: No edema. Non-tender * SKIN: No rashes or lesions. Skin warm, dry. * NEUROLOGIC: No focal neurological deficits. CN II-XII grossly intact * PSYCHIATRIC: Appropriate mood and affect. Good judgement and insight. Objective Data Vital Signs Vital Signs: Vital Signs - 24 hr 02/23/24 08:44 02/23/24 08:44 02/23/24 08:44 Temperature 99.8 F H Pulse Rate 114 H Respiratory Rate 24 H Blood Pressure 157/82 H Pulse Oximetry 91 Oxygen Delivery Room Air Room Air Room Air Oxygen Flow Rate 02/23/24 09:28 02/23/24 09:35 02/23/24 08:50 Temperature Pulse Rate 105 H 104 H 110 H Respiratory Rate 16 20 19 Blood Pressure 157/82 H Pulse Oximetry 95 95 91 Oxygen Delivery Oxygen Flow Rate 02/23/24 09:01 02/23/24 09:11 02/23/24 09:16 Temperature Pulse Rate 107 H 108 H Respiratory Rate 21 H 17 Blood Pressure 131/76 149/75 H 129/65 Pulse Oximetry 90 92 90 Oxygen Delivery Oxygen Flow Rate 02/23/24 09:46 02/23/24 10:01 02/23/24 10:11 Temperature 100.0 F H Pulse Rate 104 H 105 H Respiratory Rate 20 18 22 H Blood Pressure 127/74 130/69 Pulse Oximetry 88 L 92 90 Oxygen Delivery Room Air Room Air Oxygen Flow Rate 02/23/24 13:20 02/23/24 13:30 02/23/24 12:00 Temperature Pulse Rate 92 96 90 Respiratory Rate 20 20 Blood Pressure Pulse Oximetry 95 97 Oxygen Delivery Oxygen Flow Rate 02/23/24 16:34 02/23/24 16:25 02/23/24 16:25 Temperature 97.7 F Pulse Rate 89 87 88 Respiratory Rate 20 16 Blood Pressure 118/51 L Pulse Oximetry 94 94 Oxygen Delivery Room Air Oxygen Flow Rate 02/23/24 20:00 02/24/24 00:00 02/24/24 00:00 Temperature 98.9 F Pulse Rate 93 77 94 Respiratory Rate 18 Blood Pressure 128/50 L Pulse Oximetry 90 Oxygen Delivery Room Air Oxygen Flow Rate 02/24/24 01:18 02/24/24 00:47 02/24/24 01:10 Temperature Pulse Rate 73 80 74 Respiratory Rate 16 18 18 Blood Pressure Pulse Oximetry 93 87 L 89 L Oxygen Delivery Nasal Cannula Oxygen Flow Rate 2 02/24/24 04:00 02/24/24 05:30 02/24/24 05:43 Temperature Pulse Rate 68 78 76 Respiratory Rate 18 18 Blood Pressure Pulse Oximetry 92 93 Oxygen Delivery Oxygen Flow Rate 2 2 02/23/24 08:55 Temperature 99.8 F H Pulse Rate 114 H Respiratory Rate 24 H Blood Pressure 157/82 H Pulse Oximetry 91 Oxygen Delivery Room Air Oxygen Flow Rate Intake/Output Intake/Output: Intake & Output 02/21/24 02/22/24 02/23/24 02/24/24 23:59 23:59 23:59 23:59 Intake Total 1910.7 1400 Output Total 600 Balance 1910.7 800 Meds/Results Medications: Active Medications Generic Name Dose Route Start Last Admin Trade Name Freq PRN Reason Stop Dose Admin Acetaminophen 650 mg 02/23/24 10:28 02/23/24 20:59 Acetaminophen 325 Mg Tablet PO 650 mg Q4H PRN Administration Mild Pain (1-3) or Fever Hydrocodone Bitart/Acetaminophen 1 tab 02/23/24 10:28 Hydrocodone/Acetaminophen (*Crx) 5-325 Mg Tablet PO Q4H PRN Moderate Pain (4-6) Albuterol/Ipratropium 3 ml 02/23/24 12:30 02/24/24 05:41 Ipratropium 0.5 Mg/Albuterol Sulfate 2.5 Mg Ampul.Neb 3 Ml INHALATION 3 ml Q6HRT TANMAY Administration Aspirin 81 mg 02/23/24 10:55 02/23/24 11:21 Aspirin 81 Mg Chewable Tablet PO 81 mg DAILY TANMAY Administration Atorvastatin Calcium 20 mg 02/23/24 10:55 02/23/24 11:20 Atorvastatin 10 Mg Tablet PO 20 mg DAILY TANMAY Administration Benzonatate 100 mg 02/23/24 11:13 02/24/24 01:28 Benzonatate 100 Mg Capsule PO 100 mg TID PRN Administration cough Diltiazem HCl 120 mg 02/23/24 11:00 02/23/24 11:18 Diltiazem Hcl Cd 120 Mg Cap.24hr PO 120 mg QAM [facility] Administration Diltiazem HCl 180 mg 02/23/24 11:00 02/23/24 11:22 Diltiazem Hcl Cd 180 Mg Cap.24hr PO 180 mg QAM [facility] Administration Enoxaparin Sodium 40 mg 02/24/24 09:00 Enoxaparin 40 Mg/0.4 Ml Syringe SUB-Q DAILY [facility] Guaifenesin 1,200 mg 02/23/24 21:00 02/23/24 20:54 Guaifenesin 12 Hr 600 Mg Tabcr PO 1,200 mg Q12HR [facility] Administration Hydrochlorothiazide 12.5 mg 02/24/24 09:00 Hydrochlorothiazide 12.5 Mg Capsule PO QAM [facility] Ceftriaxone Sodium 1 gm in 50 mls @ 100 mls/hr 02/24/24 09:00 Rocephin 1 Gm/Ns 50 Ml IVPB Q24H [facility] Azithromycin 500 mg in 250 mls @ 250 mls/hr 02/24/24 10:00 Zithromax IVPB Q24H [facility] Lisinopril 20 mg 02/24/24 09:00 Lisinopril 20 Mg Tablet PO QAM [facility] Magnesium Oxide 400 mg 02/23/24 11:00 02/23/24 11:20 Magnesium Oxide 400 Mg Tablet PO 400 mg DAILY TANMAY Administration Ondansetron HCl 4 mg 02/23/24 10:28 Ondansetron Inj 4 Mg/2 Ml Vial IV PUSH Q6H PRN Nausea And Vomiting Pantoprazole Sodium 40 mg 02/24/24 09:00 Pantoprazole 40 Mg Tablet PO QAM [facility] Venlafaxine HCl 37.5 mg 02/23/24 10:55 02/23/24 11:20 Venlafaxine Hcl Xr 37.5 Mg Cap PO 37.5 mg DAILY TANMAY Administration Radiology Results: ITS Impressions Chest X-Ray 02/23/24 09:16 IMPRESSION: 1. Patchy airspace opacities at the inferior lower lung zones consistent with atelectasis and/or pneumonia. Chest CTA 02/23/24 12:03 IMPRESSION: 1. Bilateral lower lobe pneumonia. 2. Mild mediastinal and bilateral hilar lymphadenopathy, likely reactive. 3. No pulmonary embolus. Labs Labs: Laboratory Results - last 24 hr 02/23/24 02/23/24 02/23/24 09:13 09:23 12:23 WBC 13.0 H RBC 3.90 L Hgb 11.6 L Hct 34.6 L MCV 88.7 MCH 29.7 MCHC 33.5 RDW 12.4 Plt Count 384 MPV 9.4 Immature Gran % (Auto) 1.2 H Neut % (Auto) 83.6 H Lymph % (Auto) 6.[address] [place] % (Auto) 8.9 Eos % (Auto) 0.1 L Baso % (Auto) 0.2 Lymph # (Auto) 0.[address] [place] # (Auto) 1.16 H Eos # (Auto) 0.01 L Baso # (Auto) 0.03 Abs Immat Gran (auto) 0.15 H Absolute Neuts (auto) 10.87 H Absolute Nucleated RBC 0.00 Nucleated RBC % 0.0 PT 13.2 H INR 1.2 APTT 34.7 H Sodium 138 Potassium 3.4 L Chloride 97 L Carbon Dioxide 29 Anion Gap 12 BUN 11 Creatinine 1.00 Estim Creat Clear Calc 48 Estimated GFR 55 L Glucose 109 H Calculated Osmolality 286 Lactic Acid 1.4 Calcium 8.8 Magnesium 1.8 Total Bilirubin 0.7 AST 30 ALT 29 Alkaline Phosphatase 110 C-Reactive Protein 23.5 H Total Protein 7.3 Albumin 2.5 L Nasal MRSA (PCR) Not detected Influenza A (RT-PCR) Negative Influenza B (RT-PCR) Negative RSV (RT-PCR) Negative SARS-CoV-2 RNA (RT-PCR) Negative 02/24/24 05:37 WBC 11.8 H RBC 3.19 L Hgb 9.5 L Hct 28.5 L MCV 89.3 MCH 29.8 MCHC 33.3 RDW 12.7 Plt Count 333 MPV 9.3 Immature Gran % (Auto) 0.6 H Neut % (Auto) 81.7 H Lymph % (Auto) 8.[address] [place] % (Auto) 8.0 Eos % (Auto) 0.6 L Baso % (Auto) 0.3 Lymph # (Auto) 1.[address] [place] # (Auto) 0.95 H Eos # (Auto) 0.07 Baso # (Auto) 0.04 Abs Immat Gran (auto) 0.07 H Absolute Neuts (auto) 9.66 H Absolute Nucleated RBC 0.00 Nucleated RBC % 0.0 PT INR APTT Sodium 141 Potassium 3.8 Chloride 103 Carbon Dioxide 29 Anion Gap 9 BUN 9 Creatinine 0.93 Estim Creat Clear Calc 51 Estimated GFR 60 Glucose 96 Calculated Osmolality 290 Lactic Acid Calcium 8.5 Magnesium Total Bilirubin 0.5 AST 51 H ALT 47 Alkaline Phosphatase 102 C-Reactive Protein Total Protein 6.2 L Albumin 2.1 L Nasal MRSA (PCR) Influenza A (RT-PCR) Influenza B (RT-PCR) RSV (RT-PCR) SARS-CoV-2 RNA (RT-PCR) Quality VTE Prophylaxis VTE prophylaxis: pharmacologic ordered -Patient's previous records reviewed on admission -ER notes reviewed in detail on admission -discussed all findings and current treatment plan with patient/Family/POA -Consultations reviewed for recommendations -Patient's disposition for safe discharge discussed with correctional case records supervisor Dictation performed by [employer] direct speech recognition software, therefore side show entertainer variants and typographical errors may occur. Hospitalist MIPS Advance Care Plan I have confirmed that the patient's Advanced Care Plan is present, code status is documented, or surrogate decision maker is listed in patient medical record.: Yes Medication Reconciliation I have utilized all available resources to obtain, update and review the patients current medications (includes all prescriptions, OTC, herbals, cannabis, and nutritional supplements).: Yes The patient is not eligible for med reconciliation; the patient is in a emergent medical situation where delaying treatment would jeopardize the patients health.: No
[2024-02-24] MEDS: ENOXAPARIN 40 MG/0.4 ML SYRINGE SUB-Q (08:58)
[2024-02-24] MEDS: guaiFENesin 12 HR 600 MG TABCR 1200 MG PO ×2 (09:00→20:21)
[2024-02-24] MEDS: dilTIAZem HCL CD 180 MG CAP.24HR PO (09:00)
[2024-02-24] MEDS: dilTIAZem HCL CD 120 MG CAP.24HR PO (09:00)
[2024-02-24] MEDS: hydroCHLOROthiazide 12.5 MG CAPSULE PO (09:00)
[2024-02-24] MEDS: VENLAFAXINE HCL XR 37.5 MG CAP PO (09:01)
[2024-02-24] MEDS: ATORVASTATIN 10 MG TABLET 20 MG PO (09:01)
[2024-02-24] MEDS: PANTOPRAZOLE 40 MG TABLET PO (09:01)
[2024-02-24] MEDS: ASPIRIN 81 MG CHEWABLE TABLET PO (09:01)
[2024-02-24] MEDS: lisinopriL 20 MG TABLET PO (09:01)
[2024-02-24] MEDS: MAGNESIUM OXIDE 400 MG TABLET PO (09:01)
[2024-02-24] MEDS: AZITHROMYCIN 500 MG/NS 250 ML 500 MG/250 ML BAG 250 MG IVPB (09:59)
[2024-02-24] MEDS: ANASTROZOLE (*CHEMO) 1 MG TABLET PO (10:02)
[2024-02-24] MEDS: ACETAMINOPHEN 325 MG TABLET 650 MG PO (20:38)
--- NOTE | 2024-02-24 23:45 | PC.NURSE ---
Addendum entered by Janna Riddle RN 02/24/24 23:47: Time 1944 Original Note: Pt saying she feels like she needs her O2 back on. Denies SOB. SpO2 @ 88% on room air. O2 restarted @ 2 lpm/nc.
--- NOTE | 2024-02-24 23:48 | PC.NURSE ---
Addendum entered by Janna Riddle RN 02/24/24 23:50: Time 2015 Original Note: Patient's SpO2 @ 89% on O2 @ 2 lpm/nc. O2 increased to 3 lpm/nc. SpO2 increased to 92%.
[2024-02-25] VITALS (14 sets, daily range): BP systolic 98–121; BP diastolic 50–61; PULSE 72–101; RESP 14–20; TEMP 36.1–37.1; O2SAT 91–98
[2024-02-25] MEDS: IPRATROPIUM 0.5 MG/ALBUTEROL SULFATE 2.5 MG AMPUL.NEB 3 ML INHALATION ×4 (00:27→16:53)
[2024-02-25 05:40] LABS: Basophils Absolute Auto 0.04 K/mm3 (0.00-0.10); Basophils Percent Auto 0.4 % (0.0-1.0); Eosinophils Absolute Auto 0.11 K/mm3 (0.02-0.50); Eosinophils Percent Auto 1.1 % (1.0-6.0); Hematocrit 30.1 % (35.0-42.0); Hemoglobin 9.7 g/dL (11.7-13.8); Immature Granulocyte Absolute 0.07 K/mm3 (0.00-0.00); Immature Granulocyte Percent A 0.7 % (0.0-0.0); Lymphocytes Absolute Auto 1.19 K/mm3 (1.10-4.50); Lymphocytes Percent Auto 12.1 % (18.0-42.0); Mean Corpuscular HGB Conc 32.2 g/dL (32-36); Mean Corpuscular Hemoglobin 28.9 pg (27.0-31.0); Mean Corpuscular Volume 89.6 fL (78.0-102.0); Mean Platelet Volume 9.7 fl (9.2-11.8); Monocytes Absolute Auto 0.98 K/mm3 (0.10-0.90); Monocytes Percent Auto 9.9 % (2.0-11.0); Neutrophils Absolute Auto 7.47 K/mm3 (1.70-7.20); Neutrophils Percent Auto 75.8 % (50.0-70.0); Platelet Count Result 373 K/mm3 (150-420); Red Blood Count 3.36 M/mm3 (4.20-5.40); White Blood Count 9.9 K/mm3 (4.8-10.8)
[2024-02-25 05:55] LABS: Alanine Aminotransferase 60 U/L (14-59); Albumin Level 2.1 g/dL (3.4-5.0); Alkaline Phosphatase 124 U/L (46-116); Anion Gap 8 mmol/L (4-12); Aspartate Amino Transferase 68 U/L (15-37); Bilirubin,Total 0.5 mg/dL (0.00-1.00); Blood Urea Nitrogen 8 mg/dL (7-18); Calcium 8.8 mg/dL (8.5-10.1); Carbon Dioxide 28 mmol/L (21-32); Chloride 101 mmol/L (98-108); Estimated CRCL calculation 48 ml/min; Estimated Glomerular Filt Rate 56; Glucose 102 mg/dL (70-99); Osmolality Calculated 282 mOsm/kg (285-295); Potassium 3.5 mmol/L (3.5-5.1); Sodium 137 mmol/L (136-145); Total Protein 6.5 g/dL (6.4-8.2)
--- NOTE | 2024-02-25 07:51 | P.PNIM_ITS ---
Progress Note: A&P Assessment and Plan (1) Sepsis without septic shock: Code(s): A41.9 - Sepsis, unspecified organism Status: Acute Assessment and Plan: * Without septic shock secondary to Pneumonia * Sputum culture shows normal oral dylon * Tachycardia, tachypnea, febrile, Leukocytosis, and CXR with Pneumonia * Rocephin and azithromycin * lactic acid level 1.4 * Repeat CBC, CMP. * Two sets of blood cultures pending * PTT and PT, INR. * Cardiac monitoring (2) Acute respiratory failure with hypoxia: Code(s): J96.01 - Acute respiratory failure with hypoxia Status: Acute Assessment and Plan: * SPO2 88% on RA POA * improved with supplemental oxygen 2L wean as tolerated * Secondary to bilateral pneumonia * Duonebs * azithromycin and Rocephin * DuoNebs * CTA pending to R/O PE 02/24/2024 * desaturation need to 2 supplemental oxygen to maintain 92% * CTA negative for PE 02/25/24: * continue to attempt to wean oxygen * continue above therapies * trial steroids (3) Community acquired pneumonia: Code(s): J18.9 - Pneumonia, unspecified organism Status: Acute Assessment and Plan: * Bronchodilators. * Chest x-ray bilateral Opacities * incentive spirometry while awake. * sputum culture ordered * influenza/COVID/RSV negative * Legionella, pneumococcal, mycoplasma * mucolytics * antipyretics * Rocephin and azithromycin * MRSA pending * supplemental oxygen therapy to maintain oxygen 92% * CMP/CBC daily * IV fluids x 1L mildly dehydrated 02/24/2024 * Bilateral pneumonia on CT * sputum pending * blood cultures NGTD 02/25/24: * continue above plan of care (4) Hypertension: Code(s): I10 - Essential (primary) hypertension Status: Acute Assessment and Plan: * Stable * Resumed * Cardizem/ hydrochlorothiazide and lisinopril * monitor BP per unit protocol (5) Hyperlipidemia: Code(s): E78.5 - Hyperlipidemia, unspecified Status: Acute Assessment and Plan: * resumed Statin (6) Hypokalemia: Code(s): E87.6 - Hypokalemia Status: Acute Assessment and Plan: * 3.4 POA * 40meq * repeat BMP * cardiac monitoring RESOLVED Plan Code status: Full code per patient DVT prophylaxis: Lovenox Stress ulcer prophylaxis: Protonix 40 daily PT/OT notes: Ambulatory Disposition: patient was admitted to the medical unit for acute respiratory failure with hypoxia secondary to sepsis without septic shock from bilateral pneumonia. will continue with IV antibiotic therapy, DuoNebs mucolytics pending cultures will deescalate antibiotics per cultures and continue to wean oxygen as tolerated. patient is ambulatory plan will be to discharge to home when medically stable. Subjective Date/time seen: 02/25/24 07:51 Interval history: No acute events overnight. The patient is sitting up in the chair with her and granddaughter at the bedside. She states that she is continuing to feel better but she is not back to her baseline yet. She continues to require 2 L of nasal cannula to maintain saturation greater than 90%. She has a strong, congested cough but it is nonproductive. She does not think she has had any fever chills overnight. Her appetite is improving. Review of Systems Review of Systems: All systems reviewed & are unremarkable except as noted in HPI and below Exam Narrative: General: appears comfortable, in no acute distress Respiratory: breathing is unlabored with even chest rise/fall, lungs are coarse without wheezing, + rhonchi, and + crackles Cardiovascular: Rate and rhythm regular, normal s1s2, no murmur. sinus rhythm on telemetry Abdomen: Soft, round, non-tender, active bowel sounds Extremities: No cyanosis, edema, clubbing. Pulses 2/2 Neuro: A&O x 4 Skin: Warm, dry, intact Objective Data Vital Signs Vital Signs: Vital Signs - 24 hr 02/24/24 08:10 02/24/24 08:10 02/24/24 11:40 Temperature 97.7 F Pulse Rate 78 82 78 Respiratory Rate 18 20 Blood Pressure 116/62 Pulse Oximetry 92 90 Oxygen Delivery Nasal Cannula Oxygen Flow Rate 2 2 02/24/24 11:50 02/24/24 12:00 02/24/24 16:25 Temperature Pulse Rate 82 68 91 Respiratory Rate 20 Blood Pressure Pulse Oximetry 96 Oxygen Delivery Oxygen Flow Rate 02/24/24 16:41 02/24/24 16:50 02/24/24 16:50 Temperature 97.3 F L Pulse Rate 83 78 87 Respiratory Rate 20 20 16 Blood Pressure 107/50 L Pulse Oximetry 93 97 92 Oxygen Delivery Room Air Oxygen Flow Rate 02/24/24 19:50 02/24/24 19:50 02/24/24 20:38 Temperature 100.0 F H Pulse Rate 90 Respiratory Rate 20 Blood Pressure Pulse Oximetry Oxygen Delivery Room Air Oxygen Flow Rate 02/24/24 19:45 02/24/24 23:51 02/24/24 23:51 Temperature 97.6 F Pulse Rate 88 88 Respiratory Rate 20 18 Blood Pressure 131/70 Pulse Oximetry 88 L 93 Oxygen Delivery Room Air Nasal Cannula Oxygen Flow Rate 3 02/24/24 20:35 02/24/24 21:30 02/25/24 00:25 Temperature 100.0 F H 98.7 F Pulse Rate 73 Respiratory Rate 18 Blood Pressure Pulse Oximetry 91 Oxygen Delivery Oxygen Flow Rate 3 02/25/24 00:25 02/25/24 00:40 02/25/24 04:00 Temperature Pulse Rate 73 72 84 Respiratory Rate 20 18 Blood Pressure Pulse Oximetry 91 95 Oxygen Delivery Oxygen Flow Rate 3 3 02/25/24 04:00 02/25/24 05:38 02/25/24 05:50 Temperature Pulse Rate 84 87 Respiratory Rate 18 18 Blood Pressure Pulse Oximetry 93 93 92 Oxygen Delivery Nasal Cannula Oxygen Flow Rate 3 3 3 Intake/Output Intake/Output: Intake & Output 02/22/24 02/23/24 02/24/24 02/25/24 23:59 23:59 23:59 23:59 Intake Total 1910.7 3150 100 Output Total 1000 450 Balance 1910.7 2150 -350 Meds/Results Medications: Active Medications Generic Name Dose Route Start Last Admin Trade Name Freq PRN Reason Stop Dose Admin Acetaminophen 650 mg 02/23/24 10:28 02/24/24 20:38 Acetaminophen 325 Mg Tablet PO 650 mg Q4H PRN Administration Mild Pain (1-3) or Fever Hydrocodone Bitart/Acetaminophen 1 tab 02/23/24 10:28 Hydrocodone/Acetaminophen (*Crx) 5-325 Mg Tablet PO Q4H PRN Moderate Pain (4-6) Albuterol/Ipratropium 3 ml 02/23/24 12:30 02/25/24 05:37 Ipratropium 0.5 Mg/Albuterol Sulfate 2.5 Mg Ampul.Neb 3 Ml INHALATION 3 ml Q6HRT TANMAY Administration Anastrozole 1 mg 02/24/24 09:00 02/24/24 10:02 Anastrozole (*Chemo) 1 Mg Tablet PO 1 mg DAILY TANMAY Administration Aspirin 81 mg 02/23/24 10:55 02/24/24 09:01 Aspirin 81 Mg Chewable Tablet PO 81 mg DAILY TANMAY Administration Atorvastatin Calcium 20 mg 02/23/24 10:55 02/24/24 09:01 Atorvastatin 10 Mg Tablet PO 20 mg DAILY [facility]ANMA[facility] Administration Benzonatate 100 mg 02/23/24 11:13 02/24/24 20:21 Benzonatate 100 Mg Capsule PO 100 mg TID PRN Administration cough Diltiazem HCl 120 mg 02/23/24 11:00 02/24/24 09:00 Diltiazem Hcl Cd 120 Mg Cap.24hr PO 120 mg QAM [facility] Administration Diltiazem HCl 180 mg 02/23/24 11:00 02/24/24 09:00 Diltiazem Hcl Cd 180 Mg Cap.24hr PO 180 mg QAM [facility] Administration Enoxaparin Sodium 40 mg 02/24/24 09:00 02/24/24 08:58 Enoxaparin 40 Mg/0.4 Ml Syringe SUB-Q 40 mg DAILY [facility] Administration Guaifenesin 1,200 mg 02/23/24 21:00 02/24/24 20:21 Guaifenesin 12 Hr 600 Mg Tabcr PO 1,200 mg Q12HR [facility]ANMAY Administration Hydrochlorothiazide 12.5 mg 02/24/24 09:00 02/24/24 09:00 Hydrochlorothiazide 12.5 Mg Capsule PO 12.5 mg QAM [facility] Administration Ceftriaxone Sodium 1 gm in 50 mls @ 100 mls/hr 02/24/24 09:00 02/24/24 09:35 Rocephin 1 Gm/Ns 50 Ml IVPB Infused Q24H [facility]AN[facility] Infusion Azithromycin 500 mg in 250 mls @ 250 mls/hr 02/24/24 10:00 02/24/24 11:05 Zithromax IVPB Infused Q24H [facility] Infusion Lisinopril 20 mg 02/24/24 09:00 02/24/24 09:01 Lisinopril 20 Mg Tablet PO 20 mg QAM [facility] Administration Magnesium Oxide 400 mg 02/23/24 11:00 02/24/24 09:01 Magnesium Oxide 400 Mg Tablet PO 400 mg DAILY [facility] Administration Ondansetron HCl 4 mg 02/23/24 10:28 Ondansetron Inj 4 Mg/2 Ml Vial IV PUSH Q6H PRN Nausea And Vomiting Pantoprazole Sodium 40 mg 02/24/24 09:00 02/24/24 09:01 Pantoprazole 40 Mg Tablet PO 40 mg QAM [facility]ANMA[facility] Administration Venlafaxine HCl 37.5 mg 02/23/24 10:55 02/24/24 09:01 Venlafaxine Hcl Xr 37.5 Mg Cap PO 37.5 mg DAILY TANMAY Administration Radiology Results: ITS Impressions Chest X-Ray 02/23/24 09:16 IMPRESSION: 1. Patchy airspace opacities at the inferior lower lung zones consistent with atelectasis and/or pneumonia. Chest CTA 02/23/24 12:03 IMPRESSION: 1. Bilateral lower lobe pneumonia. 2. Mild mediastinal and bilateral hilar lymphadenopathy, likely reactive. 3. No pulmonary embolus. Labs Labs: Laboratory Results - last 24 hr 02/25/24 05:13 WBC 9.9 RBC 3.36 L Hgb 9.7 L Hct 30.1 L MCV 89.6 MCH 28.9 MCHC 32.2 RDW 13.0 Plt Count 373 MPV 9.7 Immature Gran % (Auto) 0.7 H Neut % (Auto) 75.8 H Lymph % (Auto) 12.1 L [place] % (Auto) 9.9 Eos % (Auto) 1.1 Baso % (Auto) 0.4 Lymph # (Auto) 1.19 [place] # (Auto) 0.98 H Eos # (Auto) 0.11 Baso # (Auto) 0.04 Abs Immat Gran (auto) 0.07 H Absolute Neuts (auto) 7.47 H Absolute Nucleated RBC 0.00 Nucleated RBC % 0.0 Sodium 137 Potassium 3.5 Chloride 101 Carbon Dioxide 28 Anion Gap 8 BUN 8 Creatinine 0.99 Estim Creat Clear Calc 48 Estimated GFR 56 L Glucose 102 H Calculated Osmolality 282 L Calcium 8.8 Total Bilirubin 0.5 AST 68 H ALT 60 H Alkaline Phosphatase 124 H Total Protein 6.5 Albumin 2.1 L Quality VTE Prophylaxis VTE prophylaxis: pharmacologic ordered
[2024-02-25] MEDS: ENOXAPARIN 40 MG/0.4 ML SYRINGE SUB-Q (09:42)
[2024-02-25] MEDS: MAGNESIUM OXIDE 400 MG TABLET PO (09:42)
[2024-02-25] MEDS: PANTOPRAZOLE 40 MG TABLET PO (09:42)
[2024-02-25] MEDS: VENLAFAXINE HCL XR 37.5 MG CAP PO (09:43)
[2024-02-25] MEDS: dilTIAZem HCL CD 180 MG CAP.24HR PO (09:43)
[2024-02-25] MEDS: lisinopriL 20 MG TABLET PO (09:43)
[2024-02-25] MEDS: hydroCHLOROthiazide 12.5 MG CAPSULE PO (09:43)
[2024-02-25] MEDS: guaiFENesin 12 HR 600 MG TABCR 1200 MG PO ×2 (09:43→20:25)
[2024-02-25] MEDS: ANASTROZOLE (*CHEMO) 1 MG TABLET PO (09:43)
[2024-02-25] MEDS: dilTIAZem HCL CD 120 MG CAP.24HR PO (09:44)
[2024-02-25] MEDS: ASPIRIN 81 MG CHEWABLE TABLET PO (09:45)
[2024-02-25] MEDS: ATORVASTATIN 10 MG TABLET 20 MG PO (09:45)
[2024-02-25] MEDS: AZITHROMYCIN 500 MG/NS 250 ML 500 MG/250 ML BAG 250 MG IVPB (11:05)
[2024-02-25] MEDS: predniSONE 20 MG TABLET 40 MG PO (11:06)
[2024-02-26] VITALS (11 sets, daily range): BP systolic 97–104; BP diastolic 49–56; PULSE 72–96; RESP 18–20; TEMP 36.1–36.7; O2SAT 88–95
[2024-02-26] MEDS: IPRATROPIUM 0.5 MG/ALBUTEROL SULFATE 2.5 MG AMPUL.NEB 3 ML INHALATION ×4 (00:26→16:52)
[2024-02-26] MEDS: BENZONATATE 100 MG CAPSULE PO ×2 (02:11→22:10)
[2024-02-26 05:22] LABS: Basophils Absolute Auto 0.02 K/mm3 (0.00-0.10); Basophils Percent Auto 0.2 % (0.0-1.0); Hemoglobin 9.2 g/dL (11.7-13.8); Immature Granulocyte Absolute 0.07 K/mm3 (0.00-0.00); Immature Granulocyte Percent A 0.8 % (0.0-0.0); Lymphocytes Absolute Auto 0.83 K/mm3 (1.10-4.50); Mean Corpuscular HGB Conc 32.9 g/dL (32-36); Mean Corpuscular Hemoglobin 29.3 pg (27.0-31.0); Mean Corpuscular Volume 89.2 fL (78.0-102.0); Mean Platelet Volume 9.6 fl (9.2-11.8); Monocytes Absolute Auto 0.46 K/mm3 (0.10-0.90); Monocytes Percent Auto 5.5 % (2.0-11.0); Neutrophils Absolute Auto 6.95 K/mm3 (1.70-7.20); Neutrophils Percent Auto 83.5 % (50.0-70.0); Platelet Count Result 415 K/mm3 (150-420); Red Blood Count 3.14 M/mm3 (4.20-5.40); White Blood Count 8.3 K/mm3 (4.8-10.8)
[2024-02-26 05:38] LABS: Alanine Aminotransferase 107 U/L (14-59); Alkaline Phosphatase 130 U/L (46-116); Anion Gap 11 mmol/L (4-12); Aspartate Amino Transferase 112 U/L (15-37); Bilirubin,Total 0.3 mg/dL (0.00-1.00); Blood Urea Nitrogen 12 mg/dL (7-18); Carbon Dioxide 26 mmol/L (21-32); Chloride 100 mmol/L (98-108); Estimated CRCL calculation 44 ml/min; Estimated Glomerular Filt Rate 50; Glucose 145 mg/dL (70-99); Osmolality Calculated 286 mOsm/kg (285-295); Potassium 3.9 mmol/L (3.5-5.1); Sodium 137 mmol/L (136-145); Total Protein 6.7 g/dL (6.4-8.2)
--- NOTE | 2024-02-26 08:55 | P.PNIM_ITS ---
Progress Note: A&P Assessment and Plan (1) Sepsis without septic shock: Code(s): A41.9 - Sepsis, unspecified organism Status: Acute Assessment and Plan: * Without septic shock secondary to Pneumonia * Sputum culture shows normal oral dylon * Tachycardia, tachypnea, febrile, Leukocytosis, and CXR with Pneumonia * Rocephin and azithromycin * lactic acid level 1.4 * Repeat CBC, CMP. * Two sets of blood cultures pending * PTT and PT, INR. * Cardiac monitoring (2) Acute respiratory failure with hypoxia: Code(s): J96.01 - Acute respiratory failure with hypoxia Status: Acute Assessment and Plan: * SPO2 88% on RA POA * improved with supplemental oxygen 2L wean as tolerated * Secondary to bilateral pneumonia * Duonebs * azithromycin and Rocephin * DuoNebs * CTA pending to R/O PE 02/24/2024 * desaturation need to 2 supplemental oxygen to maintain 92% * CTA negative for PE 02/25/24: * continue to attempt to wean oxygen * continue above therapies * trial steroids 02/25: * no change to current treatment plan * CTA was negative for PE. hypoxia secondary to pneumonia. (3) Community acquired pneumonia: Code(s): J18.9 - Pneumonia, unspecified organism Status: Acute Assessment and Plan: * Bronchodilators. * Chest x-ray bilateral Opacities * incentive spirometry while awake. * sputum culture ordered * influenza/COVID/RSV negative * Legionella, pneumococcal, mycoplasma * mucolytics * antipyretics * Rocephin and azithromycin * MRSA pending * supplemental oxygen therapy to maintain oxygen 92% * CMP/CBC daily * IV fluids x 1L mildly dehydrated 02/24/2024 * Bilateral pneumonia on CT * sputum pending * blood cultures NGTD 02/25/24: * continue above plan of care 02/26/24 * no change to current treatment plan (4) Hypertension: Code(s): I10 - Essential (primary) hypertension Status: Acute Assessment and Plan: * Stable * Resumed * Cardizem/ hydrochlorothiazide and lisinopril * monitor BP per unit protocol (5) Hyperlipidemia: Code(s): E78.5 - Hyperlipidemia, unspecified Status: Acute Assessment and Plan: * resumed Statin (6) Hypokalemia: Code(s): E87.6 - Hypokalemia Status: Acute Assessment and Plan: * 3.4 POA * 40meq * repeat BMP * cardiac monitoring RESOLVED Plan Code status: Full code per patient DVT prophylaxis: Lovenox Stress ulcer prophylaxis: Protonix 40 daily PT/OT notes: Ambulatory Disposition: patient was admitted to the medical unit for acute respiratory failure with hypoxia secondary to sepsis without septic shock from bilateral pneumonia. will continue with IV antibiotic therapy, DuoNebs mucolytics pending cultures will deescalate antibiotics per cultures and continue to wean oxygen as tolerated. patient is ambulatory plan will be to discharge to home when medically stable. Overall she is doing better her lungs sound less coarse and less rhonchi present. She is been unable to weaned to room air. Still requiring 2 L to maintain saturation greater than 90%. Will continue with pulmonary toileting today and oral steroid. Subjective Date/time seen: 02/26/24 08:55 Interval history: no acute events overnight. She continues to require 2 L of oxygen. I attempted to wean her to room air but she desaturates to 88% with conversation at rest. Overall she is improving but has been having difficulty sleeping at night related to her cough. She states Tessalon Perles are helping. Review of Systems Review of Systems: All systems reviewed & are unremarkable except as noted in HPI and below Exam Narrative: General: appears comfortable, in no acute distress Respiratory: breathing is unlabored with even chest rise/fall, lungs are Less coarse slight wheezing to left posterior middle and lower lobe. Cardiovascular: Rate and rhythm regular, normal s1s2, no murmur. sinus rhythm on telemetry Abdomen: Soft, round, non-tender, active bowel sounds Extremities: No cyanosis, edema, clubbing. Pulses 2/2 Neuro: A&O x 4 Skin: Warm, dry, intact Objective Data Vital Signs Vital Signs: Vital Signs - 24 hr 02/25/24 12:00 02/25/24 13:10 02/25/24 13:21 Temperature Pulse Rate 101 H 78 82 Respiratory Rate 20 20 Blood Pressure Pulse Oximetry 93 96 Oxygen Delivery Oxygen Flow Rate 3 02/25/24 16:00 02/25/24 16:00 02/25/24 16:53 Temperature 97 F L Pulse Rate 84 84 80 Respiratory Rate 16 20 Blood Pressure 98/50 L Pulse Oximetry 93 95 Oxygen Delivery Nasal Cannula Oxygen Flow Rate 2 02/25/24 17:03 02/25/24 20:00 02/25/24 20:00 Temperature Pulse Rate 85 74 74 Respiratory Rate 18 Blood Pressure Pulse Oximetry 98 93 Oxygen Delivery Nasal Cannula Oxygen Flow Rate 2 02/26/24 00:00 02/26/24 00:25 02/26/24 00:46 Temperature 97.3 F L Pulse Rate 74 78 80 Respiratory Rate 18 18 18 Blood Pressure 97/49 L Pulse Oximetry 93 93 93 Oxygen Delivery Nasal Cannula Oxygen Flow Rate 2 2 2 02/26/24 06:16 02/26/24 06:21 Temperature Pulse Rate 96 92 Respiratory Rate 20 18 Blood Pressure Pulse Oximetry 88 L 93 Oxygen Delivery Oxygen Flow Rate 2 Intake/Output Intake/Output: Intake & Output 02/23/24 02/24/24 02/25/24 02/26/24 23:59 23:59 23:59 23:59 Intake Total 1910.7 3150 985 650 Output Total 1000 450 600 Balance 1910.7 2150 535 50 Meds/Results Medications: Active Medications Generic Name Dose Route Start Last Admin Trade Name Freq PRN Reason Stop Dose Admin Acetaminophen 650 mg 02/23/24 10:28 02/24/24 20:38 Acetaminophen 325 Mg Tablet PO 650 mg Q4H PRN Administration Mild Pain (1-3) or Fever Hydrocodone Bitart/Acetaminophen 1 tab 02/23/24 10:28 Hydrocodone/Acetaminophen (*Crx) 5-325 Mg Tablet PO Q4H PRN Moderate Pain (4-6) Albuterol/Ipratropium 3 ml 02/23/24 12:30 02/26/24 06:13 Ipratropium 0.5 Mg/Albuterol Sulfate 2.5 Mg Ampul.Neb 3 Ml INHALATION 3 ml Q6HRT TANMAY Administration Amoxicillin/Clavulanate Potassium 1 tablet 02/26/24 09:00 Amoxicillin/Clavulanate K 875-125 Mg Tab PO Q12HR TANMAY Anastrozole 1 mg 02/24/24 09:00 02/25/24 09:43 Anastrozole (*Chemo) 1 Mg Tablet PO 1 mg DAILY TANMAY Administration Aspirin 81 mg 02/23/24 10:55 02/25/24 09:45 Aspirin 81 Mg Chewable Tablet PO 81 mg DAILY TANMAY Administration Atorvastatin Calcium 20 mg 02/23/24 10:55 02/25/24 09:45 Atorvastatin 10 Mg Tablet PO 20 mg DAILY [facility]ANMAY Administration Azithromycin 500 mg 02/26/24 09:00 Azithromycin 250 Mg Tablet PO DAILY TANMAY Benzonatate 100 mg 02/23/24 11:13 02/26/24 02:11 Benzonatate 100 Mg Capsule PO 100 mg TID PRN Administration cough Diltiazem HCl 120 mg 02/23/24 11:00 02/25/24 09:44 Diltiazem Hcl Cd 120 Mg Cap.24hr PO 120 mg QAM TANMAY Administration Diltiazem HCl 180 mg 02/23/24 11:00 02/25/24 09:43 Diltiazem Hcl Cd 180 Mg Cap.24hr PO 180 mg QAM TANMAY Administration Enoxaparin Sodium 40 mg 02/24/24 09:00 02/25/24 09:42 Enoxaparin 40 Mg/0.4 Ml Syringe SUB-Q 40 mg DAILY [facility] Administration Guaifenesin 1,200 mg 02/23/24 21:00 02/25/24 20:25 Guaifenesin 12 Hr 600 Mg Tabcr PO 1,200 mg Q12HR TANMAY Administration Hydrochlorothiazide 12.5 mg 02/24/24 09:00 02/25/24 09:43 Hydrochlorothiazide 12.5 Mg Capsule PO 12.5 mg QAM [facility] Administration Ceftriaxone Sodium 1 gm in 50 mls @ 100 mls/hr 02/26/24 09:00 Rocephin 1 Gm/Ns 50 Ml IVPB Q24H [facility] Lisinopril 20 mg 02/24/24 09:00 02/25/24 09:43 Lisinopril 20 Mg Tablet PO 20 mg QAM [facility] Administration Magnesium Oxide 400 mg 02/23/24 11:00 02/25/24 09:42 Magnesium Oxide 400 Mg Tablet PO 400 mg DAILY [facility] Administration Ondansetron HCl 4 mg 02/23/24 10:28 Ondansetron Inj 4 Mg/2 Ml Vial IV PUSH Q6H PRN Nausea And Vomiting Pantoprazole Sodium 40 mg 02/24/24 09:00 02/25/24 09:42 Pantoprazole 40 Mg Tablet PO 40 mg QAM [facility] Administration Prednisone 40 mg 02/25/24 10:40 02/25/24 11:06 Prednisone 20 Mg Tablet PO 40 mg DAILY@0800 [facility] Administration Venlafaxine HCl 37.5 mg 02/23/24 10:55 02/25/24 09:43 Venlafaxine Hcl Xr 37.5 Mg Cap PO 37.5 mg DAILY [facility]ANMAY Administration Radiology Results: ITS Impressions Chest X-Ray 02/23/24 09:16 IMPRESSION: 1. Patchy airspace opacities at the inferior lower lung zones consistent with atelectasis and/or pneumonia. Chest CTA 02/23/24 12:03 IMPRESSION: 1. Bilateral lower lobe pneumonia. 2. Mild mediastinal and bilateral hilar lymphadenopathy, likely reactive. 3. No pulmonary embolus. Labs Labs: Laboratory Results - last 24 hr 02/26/24 05:15 WBC 8.3 RBC 3.14 L Hgb 9.2 L Hct 28.0 L MCV 89.2 MCH 29.3 MCHC 32.9 RDW 13.0 Plt Count 415 MPV 9.6 Immature Gran % (Auto) 0.8 H Neut % (Auto) 83.5 H Lymph % (Auto) 10.0 L [place] % (Auto) 5.5 Eos % (Auto) 0.0 L Baso % (Auto) 0.2 Lymph # (Auto) 0.83 L [place] # (Auto) 0.46 Eos # (Auto) 0.00 L Baso # (Auto) 0.02 Abs Immat Gran (auto) 0.07 H Absolute Neuts (auto) 6.95 Absolute Nucleated RBC 0.00 Nucleated RBC % 0.0 Sodium 137 Potassium 3.9 Chloride 100 Carbon Dioxide 26 Anion Gap 11 BUN 12 Creatinine 1.09 H Estim Creat Clear Calc 44 Estimated GFR 50 L Glucose 145 H Calculated Osmolality 286 Calcium 9.0 Total Bilirubin 0.3 AST 112 H ALT 107 H Alkaline Phosphatase 130 H Total Protein 6.7 Albumin 2.0 L Quality VTE Prophylaxis VTE prophylaxis: pharmacologic ordered
[2024-02-26] MEDS: VENLAFAXINE HCL XR 37.5 MG CAP PO (09:02)
[2024-02-26] MEDS: lisinopriL 20 MG TABLET PO (09:02)
[2024-02-26] MEDS: predniSONE 20 MG TABLET 40 MG PO (09:03)
[2024-02-26] MEDS: dilTIAZem HCL CD 180 MG CAP.24HR PO (09:03)
[2024-02-26] MEDS: ANASTROZOLE (*CHEMO) 1 MG TABLET PO (09:03)
[2024-02-26] MEDS: MAGNESIUM OXIDE 400 MG TABLET PO (09:03)
[2024-02-26] MEDS: ASPIRIN 81 MG CHEWABLE TABLET PO (09:04)
[2024-02-26] MEDS: ATORVASTATIN 10 MG TABLET 20 MG PO (09:04)
[2024-02-26] MEDS: AZITHROMYCIN 250 MG TABLET 500 MG PO (09:05)
[2024-02-26] MEDS: PANTOPRAZOLE 40 MG TABLET PO (09:12)
[2024-02-26] MEDS: ENOXAPARIN 40 MG/0.4 ML SYRINGE SUB-Q (09:12)
[2024-02-26] MEDS: guaiFENesin 12 HR 600 MG TABCR 1200 MG PO ×2 (09:12→20:43)
[2024-02-26] MEDS: hydroCHLOROthiazide 12.5 MG CAPSULE PO (09:12)
[2024-02-26] MEDS: dilTIAZem HCL CD 120 MG CAP.24HR PO (09:13)
--- NOTE | 2024-02-26 12:10 | PC.NURSE ---
Today at 1110 patient request to walk in hallway wanting to see how she would do with no oxygen on. Took O2 off in room, patient sats 91-93% RA. Patient walks in hallway for approximately 20 min, Sats remains above 91%. Now back in room, sitting in Chair with oxygen saturations staying above 92%. Patient denies SOB and dyspnea, skin remains WNL for resident. Call light in reach, education given on S/Sx of respiratory distress and at bedside at this time.
--- NOTE | 2024-02-26 14:16 | PC.NURSE ---
Patient walked in hallway for 2nd time approximately 20 minutes, O2 saturation stayed above 92% on RA. Remains on RA at this time. at bedside. Call light in reach.
[2024-02-26 22:53] LABS: Pneumococcal Antigen Urine NOT DETECTED
[2024-02-27] VITALS: BP 122/52; PULSE 81; RESP 16; TEMP 36.4; O2SAT 93
[2024-02-27 05:30] VITALS: PULSE 82; O2SAT 92
[2024-02-27 05:50] VITALS: PULSE 82; RESP 20; O2SAT 92
[2024-02-27] MEDS: IPRATROPIUM 0.5 MG/ALBUTEROL SULFATE 2.5 MG AMPUL.NEB 3 ML INHALATION (05:54)
[2024-02-27 05:55] LABS: Basophils Absolute Auto 0.01 K/mm3 (0.00-0.10); Basophils Percent Auto 0.1 % (0.0-1.0); Hematocrit 27.6 % (35.0-42.0); Immature Granulocyte Absolute 0.09 K/mm3 (0.00-0.00); Immature Granulocyte Percent A 1.3 % (0.0-0.0); Lymphocytes Absolute Auto 1.16 K/mm3 (1.10-4.50); Mean Corpuscular HGB Conc 32.6 g/dL (32-36); Mean Corpuscular Hemoglobin 28.8 pg (27.0-31.0); Mean Corpuscular Volume 88.2 fL (78.0-102.0); Mean Platelet Volume 9.3 fl (9.2-11.8); Monocytes Absolute Auto 0.46 K/mm3 (0.10-0.90); Monocytes Percent Auto 6.8 % (2.0-11.0); Neutrophils Absolute Auto 5.09 K/mm3 (1.70-7.20); Neutrophils Percent Auto 74.8 % (50.0-70.0); Platelet Count Result 485 K/mm3 (150-420); Red Blood Count 3.13 M/mm3 (4.20-5.40); White Blood Count 6.8 K/mm3 (4.8-10.8)
[2024-02-27 06:00] VITALS: PULSE 85; RESP 20; O2SAT 98
[2024-02-27 06:11] LABS: Alanine Aminotransferase 208 U/L (14-59); Albumin Level 2.1 g/dL (3.4-5.0); Alkaline Phosphatase 114 U/L (46-116); Anion Gap 7 mmol/L (4-12); Aspartate Amino Transferase 189 U/L (15-37); Bilirubin,Total 0.3 mg/dL (0.00-1.00); Blood Urea Nitrogen 17 mg/dL (7-18); Calcium 8.8 mg/dL (8.5-10.1); Carbon Dioxide 29 mmol/L (21-32); Chloride 99 mmol/L (98-108); Estimated CRCL calculation 43 ml/min; Estimated Glomerular Filt Rate 49; Glucose 124 mg/dL (70-99); Osmolality Calculated 282 mOsm/kg (285-295); Potassium 3.9 mmol/L (3.5-5.1); Sodium 135 mmol/L (136-145); Total Protein 6.3 g/dL (6.4-8.2)
[2024-02-27 08:00] VITALS: BP 114/57; PULSE 77; RESP 20; TEMP 36.5; O2SAT 92
[2024-02-27] MEDS: ATORVASTATIN 10 MG TABLET 20 MG PO (08:44)
[2024-02-27] MEDS: hydroCHLOROthiazide 12.5 MG CAPSULE PO (08:44)
[2024-02-27] MEDS: dilTIAZem HCL CD 180 MG CAP.24HR PO (08:45)
[2024-02-27] MEDS: dilTIAZem HCL CD 120 MG CAP.24HR PO (08:45)
[2024-02-27] MEDS: predniSONE 20 MG TABLET 40 MG PO (08:45)
[2024-02-27] MEDS: VENLAFAXINE HCL XR 37.5 MG CAP PO (08:46)
[2024-02-27] MEDS: MAGNESIUM OXIDE 400 MG TABLET PO (08:46)
[2024-02-27] MEDS: guaiFENesin 12 HR 600 MG TABCR 1200 MG PO (08:46)
[2024-02-27] MEDS: ASPIRIN 81 MG CHEWABLE TABLET PO (08:46)
[2024-02-27] MEDS: AZITHROMYCIN 250 MG TABLET 500 MG PO (08:46)
[2024-02-27] MEDS: ENOXAPARIN 40 MG/0.4 ML SYRINGE SUB-Q (08:48)
[2024-02-27] MEDS: ANASTROZOLE (*CHEMO) 1 MG TABLET PO (08:48)
[2024-02-27] MEDS: PANTOPRAZOLE 40 MG TABLET PO (08:48)
--- NOTE | 2024-02-27 10:23 | P.DS_ITS ---
DS: Admitting Diagnosis Discharge Date 02/26 Admitting Diagnosis Shortness a breath DS: Discharge Diagnosis Discharge Diagnosis (1) Sepsis without septic shock: Code(s): A41.9 - Sepsis, unspecified organism Status: Acute Assessment and Plan: * Without septic shock secondary to Pneumonia * Sputum culture shows normal oral dylon * Tachycardia, tachypnea, febrile, Leukocytosis, and CXR with Pneumonia * Rocephin and azithromycin * lactic acid level 1.4 * Repeat CBC, CMP. * Two sets of blood cultures pending * PTT and PT, INR. * Cardiac monitoring (2) Acute respiratory failure with hypoxia: Code(s): J96.01 - Acute respiratory failure with hypoxia Status: Acute Assessment and Plan: * SPO2 88% on RA POA * improved with supplemental oxygen 2L wean as tolerated * Secondary to bilateral pneumonia * Duonebs * azithromycin and Rocephin * DuoNebs * CTA pending to R/O PE 02/24/2024 * desaturation need to 2 supplemental oxygen to maintain 92% * CTA negative for PE 02/25/24: * continue to attempt to wean oxygen * continue above therapies * trial steroids 02/25: * no change to current treatment plan * CTA was negative for PE. hypoxia secondary to pneumonia. (3) Community acquired pneumonia: Code(s): J18.9 - Pneumonia, unspecified organism Status: Acute Assessment and Plan: * Bronchodilators. * Chest x-ray bilateral Opacities * incentive spirometry while awake. * sputum culture ordered * influenza/COVID/RSV negative * Legionella, pneumococcal, mycoplasma * mucolytics * antipyretics * Rocephin and azithromycin * MRSA pending * supplemental oxygen therapy to maintain oxygen 92% * CMP/CBC daily * IV fluids x 1L mildly dehydrated 02/24/2024 * Bilateral pneumonia on CT * sputum pending * blood cultures NGTD 02/25/24: * continue above plan of care 02/26/24 * no change to current treatment plan (4) Hypertension: Code(s): I10 - Essential (primary) hypertension Status: Acute Assessment and Plan: * Stable * Resumed * Cardizem/ hydrochlorothiazide and lisinopril * monitor BP per unit protocol (5) Hyperlipidemia: Code(s): E78.5 - Hyperlipidemia, unspecified Status: Acute Assessment and Plan: * resumed Statin (6) Hypokalemia: Code(s): E87.6 - Hypokalemia Status: Acute Assessment and Plan: * 3.4 POA * 40meq * repeat BMP * cardiac monitoring RESOLVED Plan Code status: Full code per patient DVT prophylaxis: Lovenox Stress ulcer prophylaxis: Protonix 40 daily PT/OT notes: Ambulatory Disposition: patient was admitted to the medical unit for acute respiratory failure with hypoxia secondary to sepsis without septic shock from bilateral pneumonia. will continue with IV antibiotic therapy, DuoNebs mucolytics pending cultures will deescalate antibiotics per cultures and continue to wean oxygen as tolerated. patient is ambulatory plan will be to discharge to home when medically stable. Overall she is doing better her lungs sound less coarse and less rhonchi present. She is been unable to weaned to room air. Still requiring 2 L to maintain saturation greater than 90%. Will continue with pulmonary toileting today and oral steroid. DS: Summary Hospital Course Reason for hospitalization: community-acquired pneumonia, acute hypoxic respiratory failure Hospital Course: Patient is a 69-year-old female who presented to the emergency department via private vehicle with complaints of worsening shortness of breath and productive cough. Patient reports symptoms began about 2 weeks ago with cough and shortness of breath she thought it was just a upper respiratory infection and had taken some OTC cough medicine. Patient presents today with no relief of symptoms and worsening productive cough. Patient's past medical history includes hypertension and hyperlipidemia and past medical history breast cancer. patient denied any chest pain, fever chills prior to admission but did endorse nausea, shortness of breath and productive cough. Initial findings in the emergency department showed patient to be tachycardic, tachypnea, febrile, with leukocytosis, and CXR showing patchy ear spaces and opacities in inferior lower lung zones suggestive of pneumonia. patient was also found to be hypoxic at 80% on room air she will be admitted to the medical unit for acute respiratory failure with hypoxia secondary to pneumonia and sepsis without septic shock. The patient was admitted and started on IV Rocephin and azithromycin as well as DuoNebs and mucolytics. CTA of the chest was performed and showed bilateral lower lobe pneumonia without pulmonary embolism. Blood cultures have been negative with no growth to date. She required 3 L of oxygen to maintain her sats greater than 90%. Overall she was improving with her IV antibiotics but had persistent rhonchi and expiratory wheeze and continued oxygen requirement despite resolution of leukocytosis. It was decided to trial her on prednisone 40 mg daily. Her lungs sounds have improved significantly without wheezing rhonchi and she was able to be what weaned to room air. On day of discharge her labs were reviewed and are stable. She does have a transient transaminitis. She denies right upper quadrant pain, nausea, or vomiting. This is suspected to be related to her medications and reactive from her infection. I discussed with her signs and symptoms to monitor for and when to return to the emergency room. She has been instructed to continue her antibiotics in their entirety.She will discharge home in stable condition with PCP follow-up in 1 week with repeat labs. Time Spent with Patient Time attestation: Total time spent providing and/or coordinating discharge services: 70 Exam Narrative: General: appears comfortable, in no acute distress Respiratory: breathing is unlabored with even chest rise/fall, lungs are clear and diminished Cardiovascular: Rate and rhythm regular, normal s1s2, no murmur. sinus rhythm on telemetry Abdomen: Soft, round, non-tender, active bowel sounds Extremities: No cyanosis, edema, clubbing. Pulses 2/2 Neuro: A&O x 4 Skin: Warm, dry, intact DS: Data Data Completed and Pending Labs on day of discharge: Labs from last 24 hours 02/27/24 02/23/24 05:50 12:23 WBC 6.8 RBC 3.13 L Hgb 9.0 L Hct 27.6 L MCV 88.2 MCH 28.8 MCHC 32.6 RDW 13.0 Plt Count 485 H MPV 9.3 Immature Gran % (Auto) 1.3 H Neut % (Auto) 74.8 H Lymph % (Auto) 17.0 L [place] % (Auto) 6.8 Eos % (Auto) 0.0 L Baso % (Auto) 0.1 Lymph # (Auto) 1.16 [place] # (Auto) 0.46 Eos # (Auto) 0.00 L Baso # (Auto) 0.01 Abs Immat Gran (auto) 0.09 H Absolute Neuts (auto) 5.09 Absolute Nucleated RBC 0.00 Nucleated RBC % 0.0 Sodium 135 L Potassium 3.9 Chloride 99 Carbon Dioxide 29 Anion Gap 7 BUN 17 Creatinine 1.11 H Estim Creat Clear Calc 43 Estimated GFR 49 L Glucose 124 H Calculated Osmolality 282 L Calcium 8.8 Total Bilirubin 0.3 AST 189 H ALT 208 H Alkaline Phosphatase 114 Total Protein 6.3 L Albumin 2.1 L Urine Pneumococcal Ag Not detected Preliminary micro results at discharge 02/23/24 09:29 Blood Culture - Preliminary Blood 02/23/24 09:23 Blood Culture - Preliminary Blood Discharge Plan Discharge Attending physician on discharge: Leonardo Brown Consulting providers: Ileana Avila Discharging Clinician: Maricarmen Wiley Anticipated Discharge Date/Time: 02/26/24 08:15 Patient Disposition: Home, Self-Care Activity: may shower Diet: heart healthy Discharge Instructions: You were admitted for shortness of breath and found to have pneumonia. We treated you with IV antibiotics, nebulizer treatments, and started you on oral steroids. Your symptoms have improved and you are stable to discharge home today. You will continue with antibiotics and steroids at discharge. Please continue to monitor for recurrent fever, chills, worsening shortness a breath, or chest pain. Should you experience these symptoms you will need to come back to the emergency room for evaluation. Please follow-up with your primary care provider in the next 1 week given this hospitalization. I have ordered labs for you to have completed as well prior to see Dr Velez. Your liver enzymes were slightly elevated, likely related to the antibiotic you were receiving and should resolve on its own. I have prescribed you nebulizer treatments to use at home as needed for shortness of breath or wheezing. You will need to purchase a nebulizer machine at your local pharmacy. Patient Instructions: Antibiotic Form, Amoxicillin/Clavulanate Potassium (By mouth), Azithromycin (By mouth), Community Acquired Pneumonia (DC) Stand Alone Forms: General Discharge Information Follow-up/Referrals: Pranay Velez MD [Primary Care Provider] - Discharge Medications: New benzonatate 100 mg Capsule 100 mg PO TID PRN (Reason: cough) 5 Days Qty: 15 0RF prednisone 20 mg Tablet 40 mg PO DAILY@0800 5 Days Qty: 10 0RF Rx Instructions: Start 02/27 azithromycin [Zithromax] 250 mg Tablet 500 mg PO DAILY Qty: 1 0RF Rx Instructions: start 02/27 amoxicillin-pot clavulanate 875-125 mg tablet 1 tablet PO Q12H Qty: 3 0RF Rx Instructions: Take tonight 02/26 and then twice a day on 02/27 ipratropium-albuterol 0.5 mg-3 mg(2.5 mg base)/3 mL Solution For Nebulization 3 ml inhalation Q6HRT PRN (Reason: shortness of breath or wheezing) 5 Days Qty: 90 0RF guaifenesin [Mucus Relief ER] 600 mg Tablet Extended Release 12hr 1,200 mg PO Q12HR 5 Days Qty: 20 0RF Continued anastrozole 1 mg tablet 1 mg PO DAILY venlafaxine 37.5 mg capsule,extended release 24hr 37.5 mg PO DAILY atorvastatin 20 mg tablet 20 mg PO DAILY lisinopril-hydrochlorothiazide 20-12.5 mg tablet 1 tablet PO DAILY diltiazem HCl 300 mg capsule,extended release 24hr 300 mg PO DAILY aspirin 81 mg tablet,chewable 81 mg PO DAILY magnesium 250 mg Tablet 250 mg PO DAILY Other Ambulatory Orders: Complete Blood Count no Diff (Routine) Timeframe: 1 Week Location: Determined by Patient Ordered By: Maricarmen Wiley Comprehensive Metabolic Panel (Routine) Timeframe: 1 Week Location: Determined by Patient Ordered By: Maricarmen Wiley Date of admission: 02/23/24 10:07 Primary Care Provider: Pranay Velez Admitting Provider: Leonardo Brown Attending physician on admission: Maricarmen Wiley Condition: Improved Quality VTE Prophylaxis VTE prophylaxis: pharmacologic ordered Hospitalist MIPS Heart Failure (Exclusion) Patient has history of Heart Transplant or Left Ventricular Assistive Device?: No IF YES, STOP HERE Heart Failure (Qualifier) Patient has current or prior documentation of LVEF less than or equal to 40%, or mod/servere depressed LVSF?: No IF NO, STOP HERE
--- NOTE | 2024-02-27 11:22 | PC.NURSE ---
Patient discharged to home at 1115 with discharge instructions. Patient verbally voiced understanding of instructions with at bedside. Patient was excorted via WC to private vehicle and assisted into private vehicle.
[2024-02-28 21:49] LABS: Legionella pneumophila Ag Ur NOT DETECTED
--- NOTE | 2024-03-02 09:13 | PC.NURSE ---
Discharge call back complete, doing well, using neb machine twice a day, slept well last night, still has productive cough, no questions regarding dc instructions
== END 2024-02-27 11:15 | disposition home or self-care (01) | DRG 871 ==
LOC: CHSED 09:22 → CHS2ND 10:11
PROVIDERS: Nurse Practitioner Family; Admitting Provider Internal Medicine; Emergency Provider Emergency Medicine; PCP Internal Medicine; Visit Provider Nurse Practitioner Acute Care
DX: J18.9 Pneumonia, unspecified organism (principal); I10 Essential (primary) hypertension; E78.5 Hyperlipidemia, unspecified; Z20.822 Contact with and (suspected) exposure to COVID-19; Z85.3 Personal history of malignant neoplasm of breast; Z79.82 Long term (current) use of aspirin; A41.9 Sepsis, unspecified organism; J96.01 Acute respiratory failure with hypoxia; E87.6 Hypokalemia
CPT/HCPCS: 36415; 71046; 71275; 80053; 83605; 83735; 85025; 85610; 85730; 86140; 86738; 87040; 87070; 87205; 87449; 87637; 87641; 87899; 93005; 94640; 96365; 99285; A9270; J0456; J0696; J1650; J7030; J7512; Q9967

== ENCOUNTER 2024-03-17 13:45 | Outpatient (CLI) | payer MEDICARE, OTHER, SELFPAY ==
--- NOTE | ~2024-03-17 | DEXA_ITS ---
Bone Density Report Name: EDUAR BARNEY Age: 69 Sex: Female Ethnicity: White Date of : 1955 Indication: osteopenia; cancer; Referring Provider: UNKNOWN, UNKNOWN Study: Bone densitometry was performed. Exam Date: March 17, 2024 Accession number: [id number] Bone Density: Region BMD T-score Z-score Classification AP Spine(L1, L2, L3) 0.901 -1.1 0.9 Osteopenia Femoral Neck (Left) 0.610 -2.1 -0.4 Osteopenia Total Hip (Left) 0.762 -1.5 0.0 Osteopenia Femoral Neck (Right) 0.666 -1.6 0.1 Osteopenia Total Hip (Right) 0.840 -0.8 0.6 Normal Femoral Neck Mean 0.638 -1.9 -0.2 Osteopenia Total Hip Mean 0.801 -1.2 0.3 Osteopenia World Health Organization criteria for BMD impression classify patients as: Normal (T-score at or above -1.0), Osteopenia (T-score between -1.0 and -2.5), or Osteoporosis (T-score at or below -2.5). 10-year Fracture Risk(1): Major Osteoporotic Fracture 12% Hip Fracture 2.3% Reported Risk Factors: [place] (), Neck BMD=0.610, BMI=31.2 (1) FRAX(R) Version 3.08. Fracture probability calculated for an untreated patient. Fracture probability may be lower if the patient has received treatment. Previous Exams: Region Exam Age BMD T-score BMD Change BMD Change Date g/cm2 vs Baseline vs Previous Total Hip(Left) 03/17/2024 69 0.762 -1.5 -0.030 (-3.7%) -0.030 (-3.7%) 08/14/2022 67 0.792 -1.2 Total Hip(Right) 03/17/2024 69 0.840 -0.8 0.015 (1.8%) 0.015 (1.8%) 08/14/2022 67 0.825 -1.0 *Denotes significance at 95% confidence level, LSC for Total Hip = 0.027 g/cm2 Clinical Information Provided by Patient: Has used the following medications: Vitamin D, Calcium Has the following medical conditions: Cancer Patient maximum height was 64 Menopause Age: 45 No regular weight bearing exercise Drinks caffeinated beverages Onset of menses at age 16 Number of children 2 Impression: The patient has low bone mass, based on the Left Femoral Neck T-score. The BMD for the Total Hip(Left) decreased, changing by -3.7% since the last DXA exam. Discussion: BONE DENSITY IS LOW AT ONE OR MORE SKELETAL SITES. This patient's lowest T-score is low at one or more skeletal sites. It meets the World Health Organization's (WHO) criteria for ?low bone mass? (T-score between -1.0 and -2.5). The patient's 10-year risk of fracture as calculated by FRAX is less than the threshold where pharmacological therapy is recommended by the National Osteoporosis Foundation (NOF). However, all treatment decisions require clinical judgment and consideration of individual patient factors, including patient preferences, comorbidities, previous drug use, risk factors not captured in the FRAX model (e.g., frailty, falls, vitamin D deficiency, increased bone turnover, interval significant decline in bone density) and possible under or overestimation of fracture risk by FRAX. The patient should follow a healthful lifestyle (good nutrition with adequate calcium and vitamin D, and appropriate weight-bearing exercise). Follow-Up: Consider repeating this study in 2 years to reassess this patient's status, or sooner if there is some new clinical indication. Reported by: LEVY on 03/17/2024 2:07:00 PM. Reviewed, dictated and finalized at location A.
== END 2024-03-17 13:46 | disposition home or self-care (01) ==
PROVIDERS: PCP Internal Medicine
DX: C50.811 Malignant neoplasm of overlapping sites of right female breast (principal); Z17.0 Estrogen receptor positive status [ER+]; Z79.811 Long term (current) use of aromatase inhibitors; M85.89 Other specified disorders of bone density and structure, multiple sites
CPT/HCPCS: 77080

== ENCOUNTER 2024-04-09 09:55 | Outpatient (CLI) | payer MEDICARE, OTHER, SELFPAY ==
--- NOTE | ~2024-04-09 | XR_ITS ---
EXAMINATION: XR chest 2V 04/09/2024 10:15 INDICATION: Pneumonia for one and half months. PROCEDURE: 2 view chest COMPARISON: 02/23/2024 FINDINGS: The lungs are clear. The cardiomediastinal silhouette is within normal limits. There are no pleural effusions. There is no pneumothorax suspected. IMPRESSION: 1: NO ACUTE CARDIOPULMONARY DISEASE. Reviewed, dictated and finalized at location B. MP PEELING MACHINE TENDER
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
--- OUTSIDE RECORDS SUMMARY | 2024-04-09 12:26 | XMS_ITS ---
Care Plan - [facility] Created on: April 09, 2024 SAVITA EDUAR Hewitt : 1955 Sex: Female Author Organization [facility] Address [address] [place] [address] Phone Care Team Providers Care White Goods Appliance Tech Name Role Phone KAREN CHAPMAN MD Unavailable [phone]
--- OUTSIDE RECORDS SUMMARY | 2024-04-09 12:27 | XMS_ITS | Clinical Summary ---
Author Organization [facility] Address [address] [place] [address] Phone Care Team Providers Care Merry Go Round Attendant Name Role Phone KAREN CHAPMAN MD Unavailable [phone] Reason for Visit and Chief Complaint gynecologic annual exam - The Chief Complaint is: Annual Problems Includes: Problems addressed during this encounter and other active Problems All Visits Onset Date Resolved Date Provider Condition S tatus Acute Cough 08/26/2011 RUI GONZALEZ OPERATOR AND TRUCK DRIVER-SPECIAL SHOPPER Active Last Documented On 08/26/2011 11:54AM ; [facility] Note: Unchanged Difficulty Breathing (Dyspnea) 08/26/2011 RUI GONZALEZ OPERATOR AND TRUCK DRIVER-SPECIAL SHOPPER Active Last Documented On 08/26/2011 11:54AM ; [facility] Note: Unchanged CA IN SITU SKIN FACE NEC 10/04/2010 ARSENIO POPE MD Active Last Documented On 10/04/2010 1:11PM ; [facility] Note: Unchanged ANEMIA NOS 09/11/2010 ARSENIO FREEMAN MD Active Last Documented On 1 9:09AM ; [facility] HYPERLIPIDEMIA NEC/NOS 09/11/2010 ARSENIO AHMADI MD Active Last Documented On 1 9:09AM ; [facility] HYPERTENSION NOS 09/11/2010 ARSENIO POPE MD Active Last Documented On 1 9:08AM ; [facility] Pain In Limb 09/11/2010 ARSENIO POPE MD A ctive Last Documented On 1 9:10AM ; [facility] Plan of Treatment - Follow-up visit 1 year or as needed - Last Documented On 08/07/2016 12:55PM ; [facility] - Clinical summary provided to patient - Last Documented On 08/07/2016 12:55PM ; [facility] Per new ASCCP guidelines, pap was deferred today. This was d/w pt. and pt. is agreeable to this plan. - Last Documented On 08/07/2016 12:55PM ; [facility] Instructions to patient Instructions for patient : B reast Self Exam discussed Last Documented On 7 12:35PM ; [facility] Lose weight Last Documented On 7 12:36PM ; [facility] Colonoscopy Handout given to patient Last Documented On 7 12:36PM ; [facility] Education and Decision Aids were provided during visit for: Patient Education: Daily talha cium and vitamin D Last Documented On 7 12:35PM ; [facility] Patient Education: weight be aring exercise Last Documented On 7 12:35PM ; [facility] Assessments Includes: Assessments from this encounter Findings - NORMAL FEMALE EXAM - Last Documented On 08/07/2016 12:55PM ; [facility] - Screening Malig. Neoplasm Rectum - Last Documented On 08/07/2016 12:55PM ; [facility] Instructions Includes: Instructions from this encounter Instructions to patient Instructions for patient : B reast Self Exam discussed Last Documented On 7 12:35PM ; [facility] Lose weight Last Documented On 7 12:36PM ; [facility] Colonoscopy Handout given to patient Last Documented On 7 12:36PM ; [facility] Education and Decision Aids were provided during visit for: Patient Education: Daily talha cium and vitamin D Last Documented On 7 12:35PM ; [facility] Patient Education: weight be aring exercise Last Documented On 7 12:35PM ; [facility] Medical Equipment - Implanted Devices Includes: Current Devices No Medical Equipment Recorded Medications Includes: Medications discussed during this encounter and other current Medications Current Medications (continue as prescribed) Cartia XT 300 MG Capsule, extended-release 24 hour 11/2015 Provider: Diagnosis: Last Documented On 08/04/2015 9:04AM By MARISA BORJA ; [facility] Lisinopril-Hydrochlorothiazide 20-12.5 MG Tablet 08/03 Provider: Diagnosis: Last Documented On 08/04/2015 9:05AM By MARISA BORJA ; [facility] Atorvastatin Calcium 20 MG Tablet 08/04/2015 Provide r: Diagnosis: Last Documented On 08/04/2015 9:05AM By MARISA BORJA ; [facility] Adult Aspirin EC Low Strength 81 MG Tablet, enteric co ated 08/04/2015 Provider: Diagnosis: Last Documented On 08/04/2015 9:05AM By MARISA BORJA ; [facility] Past Medications on file Lisinopril-hydroCHLOROthiazide 20-12.5 MG TABS 0 08/22/2010 - 11/20/2010 Provider: Diagnosis: Last Documented On 09/11/2010 9:11AM By MARVEL BARTH MA ; [facility] Crestor 10 MG OR TABS 07/30/2010 - 10/28/2010 Provider : Diagnosis: Last Documented On 09/11/2010 9:11AM By MARVEL BARTH MA ; [facility] Medications Administered Includes: Administered Medications from this encounter No Administered Medications Recorded Vital Signs Includes: Vital Signs from this encounter Vital Name 08/07/2016 12:40P Blood Pressure Sitting L 140/70 BP Cuff Size Large Height (in) 63 Weight (lb) 188 Body Mass Index (kg/m2) 33.3 Body Surface Area (m2) 1.9 Last Documented: On 08/07/2016 12:42P M ; [facility] Results Includes: Results discussed during this encounter SUREPATH PAP AND HPV mRNA E6/E7 [employer] Ordered by SHAYY ASHFORD on 11/2015 Collected: 08/04/2015 Reported: 08/10/19 16 11:57 Last Documented On 6 1:16PM ; [facility] Reviewed by SHAYY KUNZ on 08/10/2015; All test results are final unless otherwise noted. HPV mRNA E6/E7, SUREPATH VIAL Not Detected (NOT DETECTED) N (Normal) Last Documented On 6 1:16PM ; [facility] Note: This test was performed using the APTIMA HPV Assay ([employer]This assay detects E6/E7 viral messenger RNA (mRNA) from 14high-risk HPV types (16,18,31,33,35,39,45,51,52,56,58,59,66,68).The analytical performance characteristics ofthis assay, when used to test SurePath specimens,have been determined by [employer] SOURCE: Cervix, Endocervix N (Normal) Last Documented On 6 1:16PM ; [facility] CLINICAL INFORMATION: Information not provided N (Normal) Last Documented On 6 1:16PM ; [facility] LMP: 1999 N (Normal) Last Documented On 6 1:16PM ; [facility] PREV. PAP: 2013 N (Normal) Last Documented On 6 1:16PM ; [facility] PREV. BX: NONE N (Normal) Last Documented On 6 1:16PM ; [facility] STATEMENT OF ADEQUACY: SATISFACTORY FOR EVALUATION N (Normal) Last Documented On 6 1:16PM ; [facility] INTERPRETATION/RESULT: Negative for intraepithelial lesion or malignancy. Atrophic pattern; predominantly parabasal cells None Last Documented On 6 1:16PM ; [facility] PROJECT DESIGN ENGINEER: NARDA MILLER(ASCP) CT screening location: [place] [address] [place] [address] N (Normal) Last Documented On 6 1:16PM ; [facility] History of Present Illness Includes: History of Present Illness from this encounter HPI EDUAR BARNEY is a 61 year old female. - Medication list reviewed - PRIMARY CARE PROVIDER : Dr Bass - Menopause has occurred Social History Description Last Updated In monogamous relationship 08/07/2016 Last Documented On 7 12:55PM ; [facility] Non-smoker 08/07/2016 Last Documented On 7 12:55PM ; [facility] Not using alcohol 08/07/2016 Last Documented On 7 12:55PM ; [facility] Not using drugs 08/07/2016 Last Documented On 7 12:55PM ; [facility] Sexually active with 1 partners in the l ast year 08/07/2016 Last Documented On 7 12:55PM ; [facility] Social history unchanged 08/07/2016 Last Documented On 7 12:55PM ; [facility] Smoking status : Never smoker 08/07/2016 Last Documented On 7 12:55PM ; [facility] Procedures and Surgical History Includes: Procedures from this encounter Procedures Code Diagnosis Performing Provider Service L ocation Service Date low fat diet Last Documented On 7 12:36PM ; [facility] fecal occult blood test was negative [id number] Last Documented On 7 12:35PM ; [facility] normal history of Pap smear of cervix Last Documented On 7 12:43PM ; [facility] Surgical History Last Updated Surgical / procedural history c/s x2 03/2017 Last Documented On 7 12:55PM ; [facility] History of section 08/07/2016 Last Documented On 7 12:55PM ; [facility] Medical History Includes: Medical History addressed during this encounter Description Last Updated No recent change in medical history 07/27 Last Documented On 7 12:55PM ; [facility] History of a DEXA of the lateral lumbar spine was performed 03/31/2015 wnl 08/07/2016 Last Documented On 7 12:55PM ; [facility] History of complete colonosc opy pt has not had one she is seeing her pcp next week and will be discussing it with him 08/07/2016 Last Documented On 7 12:55PM ; [facility] Sexually active 08/07/2016 Last Documented On 7 12:55PM ; [facility] History of Pap smear done 08/04/201507/27 Last Documented On 7 12:55PM ; [facility] History of screening mammogram was perfo rmed 05/02/2016 08/07/2016 Last Documented On 7 12:55PM ; [facility] Result: normal 08/07/2016 Last Documented On 7 12:55PM ; [facility] Result: normal 08/07/2016 Last Documented On 7 12:55PM ; [facility] section 08/07/2016 Last Documented On 7 12:55PM ; [facility] 2 08/07/2016 Last Documented On 7 12:55PM ; [facility] History of benign essential hypertension 08/07/2016 Last Documented On 7 12:55PM ; [facility] History of hyperlipidemia 08/07/2016 Last Documented On 7 12:55PM ; [facility] LMP: 2000 08/07/2016 Last Documented On 7 12:55PM ; [facility] Para 2 08/07/2016 Last Documented On 7 12:55PM ; [facility] Family History Includes: Family History addressed during this encounter Description Last Updated Family history unchanged 08/07/2016 Last Documented On 7 12:55PM ; [facility] Spouse name: George 08/04/2015 Last Documented On 7 12:38PM ; [facility] Review of Systems Includes: Review of Systems from this encounter Breasts: No breast lump. Gastrointestinal: No pelvic pain. Genitourinary: No postmenopausal bleeding. No vaginal discharge. Mental Status Includes: Mental Status from this encounter No Mental Status Recorded Functional Status Includes: Functional Status from this encounter No Functional Status Recorded Physical Exam Includes: Physical Exam from this encounter Allergies Includes: Active Allergies Substance Type Reaction Onset Date Resolved Date Statu s Dyazide Allergy Skin Rashes / Er uption of skin, Hives / Urticaria 09/11/2010 Active Last Documented On 7 12:44PM ; [facility] Encounters Encounter Provider Location Date Check-In Time Check-Out Time Diagnosis ANNUAL CLINICAL RESEARCH TECHNICIAN EXAM SHAYY UMANZOR [facility] SECURITY RISK ANALYST 08/08/19 17 12:27PM 12:57PM Screening Malig. Neoplasm Rectum,Normal Female Exam Insurance Includes: Active Insurance Policies Plan Name Member ID Group # Subscriber Relationship Effect bowen Dates 1 - [facility] [id number] LOVELESS, GEORGE L Other Clinical Notes Includes: Clinical Notes from this encounter No Clinical Notes Recorded
--- OUTSIDE RECORDS SUMMARY | 2024-04-09 12:27 | XMS_ITS | Clinical Summary ---
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 Active Last Documented On 08/26/2011 11:54AM ; [facility] Note: Unchanged Difficulty Breathing (Dyspnea) 08/26/2011 RUI GONZALEZ [employer] 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 GLUER Active Last Documented On 08/26/2011 11:54AM ; [facility] Note: Unchanged CA IN SITU SKIN FACE NEC 10/04/2010 ARSENIO POPE MD Active Last Documented On 10/04/2010 1:11PM ; [facility] Note: Unchanged ANEMIA NOS 09/11/2010 ARSENIO FREEMAN MD Active Last Documented On 1 9:09AM ; [facility] HYPERLIPIDEMIA NEC/NOS 09/11/2010 ARSENIO AHMADI MD Active Last Documented On 1 9:09AM ; [facility] HYPERTENSION NOS 09/11/2010 ARSENIO POPE MD Active Last Documented On 1 9:08AM ; [facility] Pain In Limb 09/11/2010 ARSENIO POPE MD A ctive Last Documented On 1 9:10AM ; [facility] Plan of Treatment No Plan of Treatment Recorded Assessments Includes: Assessments from this encounter No Assessments Recorded Medical Equipment - Implanted Devices Includes: Current Devices No Medical Equipment Recorded Medications Includes: Medications discussed during this encounter and other current Medications Current Medications (continue as prescribed) Cartia XT 300 MG Capsule, extended-release 24 hour 11/2015 Provider: Diagnosis: Last Documented On 08/04/2015 9:04AM By MARISA BORJA ; [facility] Lisinopril-Hydrochlorothiazide 20-12.5 MG Tablet 08/03 Provider: Diagnosis: Last Documented On 08/04/2015 9:05AM By MARISA BORJA ; [facility] Atorvastatin Calcium 20 MG Tablet 08/04/2015 Provide r: Diagnosis: Last Documented On 08/04/2015 9:05AM By MARISA BORJA ; [facility] Adult Aspirin EC Low Strength 81 MG Tablet, enteric co ated 08/04/2015 Provider: Diagnosis: Last Documented On 08/04/2015 9:05AM By MARISA BORJA ; [facility] Past Medications on file Lisinopril-hydroCHLOROthiazide 20-12.5 MG TABS 0 08/22/2010 - 11/20/2010 Provider: Diagnosis: Last Documented On 09/11/2010 9:11AM By MARVEL BARTH MA ; [facility] Crestor 10 MG OR TABS 07/30/2010 - 10/28/2010 Provider : Diagnosis: Last Documented On 09/11/2010 9:11AM By MARVEL BARTH MA ; [facility] Medications Administered Includes: Administered Medications from this encounter No Administered Medications Recorded Results Includes: Results discussed during this encounter No Results Recorded For Specified Dates History of Present Illness Includes: History of Present Illness from this encounter No History of Present Illness Recorded Social History No Social History Recorded - Smoking Status Unknown Medical History Includes: Medical History addressed during this encounter No Medical History Recorded Family History Includes: Family History addressed during this encounter No Family History Recorded Review of Systems Includes: Review of Systems from this encounter No Review of Systems Recorded Mental Status Includes: Mental Status from this encounter No Mental Status Recorded Functional Status Includes: Functional Status from this encounter No Functional Status Recorded Physical Exam Includes: Physical Exam from this encounter No Physical Exam Recorded Allergies Includes: Active Allergies Substance Type Reaction Onset Date Resolved Date Statu s Dyazide Allergy Skin Rashes / Er uption of skin, Hives / Urticaria 09/11/2010 Active Last Documented On 7 12:44PM ; [facility] Encounters Encounter Provider Location Date Check-In Time Check-Out Time Diagnosis * PHONE CALL SHAYY UMANZOR [facility] SALES PROMOTION DIRECTOR 6 11:32AM 11:59PM Insurance Includes: Active Insurance Policies Plan Name Member ID Group # Subscriber Relationship Effect bowen Dates 1 - [facility] [id number] GEORGE BARNEY Other Clinical Notes Includes: Clinical Notes from this encounter No Clinical Notes Recorded
--- OUTSIDE RECORDS SUMMARY | 2024-04-09 12:27 | XMS_ITS | Clinical Summary ---
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 Note: Unchanged CA IN SITU SKIN FACE NEC 10/04/2010 ARSENIO POPE MD Active Last Documented On 10/04/2010 1:11PM ; [facility] Note: Unchanged ANEMIA NOS 09/11/2010 ARSENIO FREEMAN MD Active Last Documented On 1 9:09AM ; [facility] HYPERLIPIDEMIA NEC/NOS 09/11/2010 ARSENIO AHMADI MD Active Last Documented On 1 9:09AM ; [facility] HYPERTENSION NOS 09/11/2010 ARSENIO POPE MD Active Last Documented On 1 9:08AM ; [facility] Pain In Limb 09/11/2010 ARSENIO POPE MD A ctive Last Documented On 1 9:10AM ; [facility] Plan of Treatment No Plan [...] On 08/04/2015 9:04AM By MARISA BORJA ; [facility] Lisinopril-Hydrochlorothiazide 20-12.5 MG Tablet 08/03 Provider: Diagnosis: Last Documented On 08/04/2015 9:05AM By MARISA BORJA ; [facility] Atorvastatin Calcium 20 MG Tablet 08/04/2015 Provide r: Diagnosis: Last Documented On 08/04/2015 9:05AM By MARISA BORJA ; [facility] Adult Aspirin EC Low Strength 81 MG Tablet, enteric co ated 08/04/2015 Provider: Diagnosis: Last Documented On 08/04/2015 9:05AM By MARISA BORJA ; [facility] Past Medications on file Lisinopril-hydroCHLOROthiazide 20-12.5 MG TABS 0 08/22/2010 - 11/20/2010 Provider: Diagnosis: Last Documented On 09/11/2010 9:11AM By MARVEL BARTH MA ; [facility] Crestor 10 MG OR TABS 07/30/2010 - 10/28/2010 Provider : Diagnosis: Last Documented On 09/11/2010 9:11AM By MARVEL BARTH MA ; [facility] Medications Administered Includes: Administered Medications from [...] Active Last Documented On 7 12:44PM ; [facility] Encounters Encounter Provider Location Date Check-In Time Check-Out Time Diagnosis * PHONE CALL SHAYY UMANZOR [facility] ARCHEOLOGY PROFESSOR 6 2:53PM 11:59PM Insurance Includes: Active Insurance Policies Plan Name Member ID Group # Subscriber Relationship Effect bowen Dates 1 - [facility] [id number] GEORGE BARNEY Other Clinical Notes Includes: Clinical Notes from this encounter No Clinical Notes Recorded
--- OUTSIDE RECORDS SUMMARY | 2024-04-09 12:27 | XMS_ITS | Clinical Summary ---
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 Active Last Documented On 08/26/2011 11:54AM ; [facility] Note: Unchanged Difficulty Breathing (Dyspnea) 08/26/2011 RUI GONZALEZ DUST OPERATOR-RN RESEARCH Active Last Documented On 08/26/2011 11:54AM ; [facility] Note: Unchanged CA IN SITU SKIN FACE NEC 10/04/2010 ARSENIO POPE MD Active Last Documented On 10/04/2010 1:11PM ; [facility] Note: Unchanged ANEMIA NOS 09/11/2010 ARSENIO FREEMAN MD Active Last Documented On 1 9:09AM ; [facility] HYPERLIPIDEMIA NEC/NOS 09/11/2010 ARSENIO AHMADI MD Active Last Documented On 1 9:09AM ; [facility] HYPERTENSION NOS 09/11/2010 ARSENIO POPE MD Active Last Documented On 1 9:08AM ; [facility] Pain In Limb 09/11/2010 ARSENIO POPE MD A ctive Last Documented On 1 9:10AM ; [facility] Plan of Treatment No [...] On 08/04/2015 9:04AM By MARISA BORJA ; [facility] Lisinopril-Hydrochlorothiazide 20-12.5 MG Tablet 08/03 Provider: Diagnosis: Last Documented On 08/04/2015 9:05AM By MARISA BORJA ; [facility] Atorvastatin Calcium 20 MG Tablet 08/04/2015 Provide r: Diagnosis: Last Documented On 08/04/2015 9:05AM By MARISA BORJA ; [facility] Adult Aspirin EC Low Strength 81 MG Tablet, enteric co ated 08/04/2015 Provider: Diagnosis: Last Documented On 08/04/2015 9:05AM By MARISA BORJA ; [facility] Past Medications on file Lisinopril-hydroCHLOROthiazide 20-12.5 MG TABS 0 08/22/2010 - 11/20/2010 Provider: Diagnosis: Last Documented On 09/11/2010 9:11AM By MARVEL BARTH MA ; [facility] Crestor 10 MG OR TABS 07/30/2010 - 10/28/2010 Provider : Diagnosis: Last Documented On 09/11/2010 9:11AM By MARVEL BARTH MA ; [facility] Medications Administered Includes: Administered Medications from this [...] Active Last Documented On 7 12:44PM ; [facility] Encounters Encounter Provider Location Date Check-In Time Check-Out Time Diagnosis * PHONE CALL SHAYY UMANZOR [facility] CRITICAL CARE REGISTERED NURSE 6 11:48AM 11:59PM Insurance Includes: Active Insurance Policies Plan Name Member ID Group # Subscriber Relationship Effect bowen Dates 1 - [facility] [id number] GEORGE BARNEY Other Clinical Notes Includes: Clinical Notes from this encounter No Clinical Notes Recorded
--- OUTSIDE RECORDS SUMMARY | 2024-04-09 12:27 | XMS_ITS ---
Author Organization Unknown Address [address] [place] [phone] Phone Care Team Providers Care Stove Bottom Worker Name Role Phone ROBERTO KAUR Attending Unavailable CASEY TAVAREZ Primary Unavailable Immunization Immunization Date Status Additional Notes Code Code System pneumococcal polysaccharide PPV23 07/11/2020 Completed 33 CVX Tdap 12/21/2015 Completed 115 CVX zoster live 04/06/2015 Completed 121 CVX Influenza, split virus, trivalent, preservative 01/20/2014 Completed 141 CVX Influenza, split virus, quadrivalent, PF 03/15/2013 Completed 150 CVX Influenza, split virus, quadrivalent, PF 02/18/2018 Completed 150 CVX Influenza, split virus, quadrivalent, PF 01/07/2019 Completed 150 CVX Influenza, split virus, quadrivalent, preservative 03/13/2015 Completed 158 C VX Influenza, split virus, quadrivalent, preservative 02/15/2016 Completed 158 C VX Influenza, MDCK, quadrivalen t, PF 01/29/2017 Completed 171 CVX zoster recombinant 12/24/2022 Completed 187 CVX zoster recombinant 03/28/2023 Completed 187 CVX Influenza, high-dose, quadrivalent, PF 02/21/2020 Completed 197 CVX Influenza, high-dose, quadrivalent, PF 2021 Completed 197 CVX Influenza, high-dose, quadrivalent, PF 01/09/2022 Completed 197 CVX Influenza, adjuvanted, quadrivalent, PF 02/18/2023 Completed 205 CVX COVID-19, mRNA, LNP-S, PF, 1 00 mcg/0.5mL dose or 50 mcg/0.25mL dose 06/30/2020 Completed 207 CVX COVID-19, mRNA, LNP-S, PF, 1 00 mcg/0.5mL dose or 50 mcg/0.25mL dose 07/28/2020 Completed 207 CVX COVID-19, mRNA, LNP-S, PF, 1 00 mcg/0.5mL dose or 50 mcg/0.25mL dose 03/20/2021 Completed 207 CVX COVID-19, mRNA, LNP-S, PF, 1 00 mcg/0.5mL dose or 50 mcg/0.25mL dose 09/14/2021 Completed 207 CVX COVID-19, mRNA, LNP-S, bivalent, PF, 50 mcg/0.5 mL or 25mcg/0.25 mL dose 02/08/2022 Completed 229 CVX COVID-19, mRNA, LNP-S, PF, katharine-sucrose, 30 mcg/0.3 mL 03/17/2023 Completed 309 CVX Social History Type Status Start Date End Date Code Code Syst em Smoking History Never smoker (Never Smoked) [id number] SNOMED CT Sex Female Hospital Discharge Instructions Should you have any questions prior to discharge, please contact a member of your healthcare team. If you have left the hospital and have any questions, please contact your primary care physician. Reason For Referral No Data Found Allergies and Adverse Reactions Allergy Substance Reaction Severity Start Date Concern Status Co de Code System LASIX Moderate Active Plan of Treatment NM Spect Perf Rest Stress Multi (80496) 12/25/2023 Stress Test Chemical 12/25/2023 US Echo With Color (13558) 12/25/2023 NM Spect Perf Rest Stress Multi (03820) 12/25/2023 Stress Test Chemical 12/25/2023 US Echo With Color (19812) 12/25/2023 NM Spect Perf Rest Stress Multi (32243) 12/25/2023 Stress Test Chemical 12/25/2023 US Echo With Color (51249) 12/25/2023 Encounters Encounter Diagnosis Start Date Code Code Sys tem Essential hypertension 11/27/2023 [id number] SNOME D-CT Personal Care Team Section Performer Name Performer Role Active Date Inactive CORBY Kennedy PCP - Primary care physician 2022-08-27
--- OUTSIDE RECORDS SUMMARY | 2024-04-09 12:27 | XMS_ITS | Clinical Summary ---
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 Last Documented On 08/26/2011 11:54AM ; [facility] Note: Unchanged Difficulty Breathing (Dyspnea) 08/26/2011 RUI GONZALEZ [employer] 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 Active Last Documented On 08/26/2011 11:54AM ; [facility] Note: Unchanged CA IN SITU SKIN FACE NEC 10/04/2010 ARSENIO POPE MD Active Last Documented On 10/04/2010 1:11PM ; [facility] Note: Unchanged ANEMIA NOS 09/11/2010 ARSENIO FREEMAN MD Active Last Documented On 1 9:09AM ; [facility] HYPERLIPIDEMIA NEC/NOS 09/11/2010 ARSENIO AHMADI MD Active Last Documented On 1 9:09AM ; [facility] HYPERTENSION NOS 09/11/2010 ARSENIO POPE MD Active Last Documented On 1 9:08AM ; [facility] Pain In Limb 09/11/2010 ARSENIO POPE MD A ctive Last Documented On 1 9:10AM ; [facility] Plan of [...] On 08/04/2015 9:04AM By MARISA BORJA ; [facility] Lisinopril-Hydrochlorothiazide 20-12.5 MG Tablet 08/03 Provider: Diagnosis: Last Documented On 08/04/2015 9:05AM By MARISA BORJA ; [facility] Atorvastatin Calcium 20 MG Tablet 08/04/2015 Provide r: Diagnosis: Last Documented On 08/04/2015 9:05AM By MARISA BORJA ; [facility] Adult Aspirin EC Low Strength 81 MG Tablet, enteric co ated 08/04/2015 Provider: Diagnosis: Last Documented On 08/04/2015 9:05AM By MARISA BORJA ; [facility] Medications Administered Includes: Administered Medications from [...] Active Last Documented On 7 12:44PM ; [facility] Encounters Encounter Provider Location Date Check-In Time Check- Out Time Diagnosis [Patient Encounter] SHAYY UMANZOR [facility] GARDENING MANAGER 6 11:57AM 11:59PM Insurance Includes: Active Insurance Policies Plan Name Member ID Group # Subscriber Relationship Effect bowen Dates 1 - [facility] [id number] GEORGE BARNEY Other Clinical Notes Includes: Clinical Notes from this encounter No Clinical Notes Recorded
--- OUTSIDE RECORDS SUMMARY | 2024-04-09 12:28 | XMS_ITS ---
Author Organization Unknown Address [address] [place] [address] [phone] Phone Care Team Providers Care Die Machine Operator Name Role Phone ROBERTO KAUR Attending Unavailable [...] 30 mcg/0.3 mL 03/17/2023 Completed 309 CVX Results US ECHO W/ COLOR - Completed : 12/25/2023 10:25 LOINC: See Scanned Image Attachment for Report Dictated By: Trans Initials: BG Trans Date: 12/30/23 14:41 <<REPDIST>> Social History Type Status Start Date End Date Code Code Syst em Smoking History Never smoker (Never Smoked) [id number] SNOMED CT Sex Female Hospital Discharge Instructions [...] Treatment NM Spect Perf Rest Stress Multi (34250) 12/25/2023 Stress Test Chemical 12/25/2023 US Echo With Color (98762) 12/25/2023 NM Spect Perf Rest Stress Multi (30498) 12/25/2023 Stress Test Chemical 12/25/2023 US Echo With Color (46408) 12/25/2023 NM Spect Perf Rest Stress Multi (19228) 12/25/2023 Stress Test Chemical 12/25/2023 US Echo With Color (04597) 12/25/2023 Encounters Encounter Diagnosis Start Date Code Code Sys tem Precordial pain 12/25/2023 SNOMED-CT Personal Care Team Section Performer Name Performer Role Active Date Inactive CORBY Kennedy PCP - Primary care physician 2022-08-27
== END 2024-04-09 09:56 | disposition home or self-care (01) ==
PROVIDERS: PCP Internal Medicine; Visit Provider Internal Medicine
DX: J18.9 Pneumonia, unspecified organism (principal)
CPT/HCPCS: 71046

== ENCOUNTER 2024-11-23 11:36 | Outpatient (CLI) | payer MEDICARE, OTHER, SELFPAY ==
--- NOTE | ~2024-11-23 | XR_ITS ---
EXAMINATION: XR chest 2V 11/23/2024 11:54 INDICATION: Chronic cough PROCEDURE: 2 view chest COMPARISON: 04/09/2024 FINDINGS: The lungs are clear. The cardiomediastinal silhouette is within normal limits. There are no pleural effusions. There is no pneumothorax suspected. IMPRESSION: 1: NO ACUTE CARDIOPULMONARY DISEASE. Reviewed, dictated and finalized at location []
--- OUTSIDE RECORDS SUMMARY | 2024-11-23 11:40 | XMS_ITS | Clinical Summary ---
Author Organization [facility] Address [address] [place] [phone] Care Team Providers Care Disease Management Nurse Name Role Phone Pranay Velez MD Primary Care Provider [phone] Margaret George NP Unavailable [phone] Medhat Britton MD Unavailable Allergies Active Allergy Reactions Criticality Noted Date Comments Triamterene-Hydrochlorothiazid Hives High 08/16 Medications dilTIAZem CD (CARDIZEM CD) 300 mg 24 hr capsuleIndication s:hypertension Take 1 capsule (300 mg total) by mouth every morning Active lisinopril-hydroC HLOROthiazide (ZESTORETIC) 20-12.5 mg per tabletIndications :hypertension Take 1 tablet by mouth every morning Active atorvastatin (LIPITOR) 20 mg tabletIndications :hyperlipidemia Take 1 tablet (20 mg total) by mouth nightly 1 Active magnesium oxide (MAG-OX) 250 mg (150.8 mg elemental) tablet Take 1 tablet (250 mg total) by mouth daily Active calcium carbonate-vitamin D3 (Caltrate with Vitamin D3) 1,500 mg (600mg elemental) -800 unit per tabletIndications :Malignant neoplasm of breast in female, estrogen receptor positive, unspecified laterality, unspecified site of breast (HCC) Take 1 tablet by mouth 2 (two) times a day 60 tablet 3 3 Active glucosam/chond-ms m1/C/goran/bor (GLUCOSAMINE-FARHAT D-MSM COMPLEX ORAL) Take 2 tablets by mouth daily Active venlafaxine XR (EFFEXOR-XR) 75 mg 24 hr capsule Take 1 capsule (75 mg total) by mouth daily 30 capsule 11 5 08/19/19 26 Active alendronate (FOSAMAX) 35 mg tabletIndications :Post-Menopausal Osteoporosis Prevention Take 1 tablet (35 mg total) by mouth every 7 days Take in the morning with a full glass of water, on an empty stomach, and do not take anything else by mouth or lie down for the next 30 min. 4 tablet 11 5 08/28/19 26 Active anastrozole (ARIMIDEX) 1 mg tabletIndications :Malignant neoplasm of breast in female, estrogen receptor positive, unspecified laterality, unspecified site of breast (HCC) TAKE 1 TABLET(1 MG) BY MOUTH DAILY 90 tablet 3 5 Active Active Problems Problem Noted Date Diagnosed Date Osteopenia of both hips 08/27/2024 shelter current use of aromatase inhibitor Carcinoma of overlapping sit es of right breast in female, estrogen receptor positive 03/18/2021 Cancer Staging:Clinical stage from 03/18/2021:Stage IA(cT1c, cN0, cM0, G3, ER+, VA+, HER2-) - Signed by Catie Beaulieu MD PhD on 03/18/2021 Ductal carcinoma in situ (DCIS) of right breast 02/07/2021 Abnormal mammogram 01/09/2021 Resolved Problems Problem Noted Date Diagnosed Date Resolved Date Malignant neoplasm of right breast in female, estrogen receptor positive 02/26/2021 10/17/2021 Encounters Date Type Department Care Team Description 10/05/2024 Results Follow-Up [facility] [address] [place] [phone] Larissa Gomez NP Surgical pathology 09/28/2024 Results Follow-Up [facility] [address] [place] [phone] Jina Luque NP Screening Mammogram Bilateral W Rigoberto 09/27/2024 11:15 AM CDT - 09/27/2024 11:59 PM CDT Hospital Encounter [facility] - Breast [facility] [address] [place] [address] Carcinoma of overlapping sites of right breast in female, estrogen receptor positive (HCC); Ductal carcinoma in situ (DCIS) of right breast; Encounter for screening mammogram for malignant neoplasm of breast Discharge Disposition: Discharge to home or self care 09/27/2024 11:00 AM CDT Office Visit [facility] [address] [place] [address] [address] [place] [address] Jina Luque NP Carcinoma of overlapping sites of right breast in female, estrogen receptor positive (HCC) (Primary Dx); History of breast cancer; Encounter for screening mammogram for malignant neoplasm of breast 09/27/2024 Telephone [facility] [address] [place] [address] 8 [place] [address] Linda Lama, Ronel 08/27/2024 9:00 AM CDT Office Visit [facility] [address] [place] [address] 8 [place] [address] Larissa Gomez NP History of lumpectomy of right breast (Primary Dx); Carcinoma of overlapping sites of right breast in female, estrogen receptor positive (HCC); 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; Osteopenia of both hips 08/27/2024 8:15 AM CDT Lab [facility] - Lab Collection [address] [place] [address] Floor [address] [place] [address] Carcinoma of overlapping sites of right breast in female, estrogen receptor positive (HCC); 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 from Last 3 Months Immunizations Immunization Administration Dates Next Due Influenza, Quadrivalent, Kamini l Culture-based MDCK, Preservative Free, Antibiotic Free, Intramuscular 01/29/2017 Influenza, Quadrivalent, Hig h Dose, Preservative Free, Intrr 2021,02/21/2020 Influenza, Quadrivalent, Spl it, Intramuscular 02/15/2016,03/13/2015 Influenza, Quadrivalent, Spl it, Preservative Free, Intramuscular 01/07/2019,02/18/2018,03/15/2013 Influenza, Trivalent, IM (MDV) 01/20/2014 Influenza, Unspecified 02/18/2023 Pneumococcal Polysaccharide PPV23 07/11/2020 Tdap 12/21/2015 ZOSTER LIVE 04/06/2015 Surgical History Surgery Date Site/Laterality Comments COLONOSCOPY 04/28/2017 - 04/27/2018 SECTION 1975,1977 BREAST BIOPSY 01/09/2021 Right DCIS MASTECTOMY PARTIAL / LUMPECTOMY 02/19/2021 Right Medical History Medical History Date Comments Hypertension Motion sickness HLD (hyperlipidemia) Breast cancer (HCC) GERD (gastroesophageal reflux disease) Family History Medical History Relation Name Comments Prostate cancer Brother 1 Aneurysm Mother Aneurysm Sister Anesthesia problems Neg Hx Relation Name Status Comments Brother 1 Alive Brother 2 Alive Daughter Alive Mother Sister Son Alive Social History Tobacco Use Types Packs/Day Years Used Date Smoking Tobacco: Never Smokeless Tobacco: Never Tobacco Cessation:Counseling Given: Not Answered AUDIT-C Answer Date Recorded Q1: How often do you have a drink containing alc ohol? 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 Gender Identity Female 01/27/2024 12:11 PM CDT Sexual Orientation Straight 01/27/2024 12 :11 PM CDT Obstetrics History Para Term AB IAB SAB Ectopic Multiple Livin g Live Births 2 Date Outcome GA Total Labor Labor/2nd/3rd Weight Sex Type Anes PTL Tianna A1 A5 Name Clin Last Filed Vital Signs Vital Sign Reading Time Taken Comments Blood Pressure 128/82 08/27/2024 8:30 AM CDT Pulse 67 08/27/2024 8:30 AM CDT Temperature 36.6 C (97.9 F) 08/27/2024 8:30 AM CDT Respiratory Rate 16 08/27/2024 8:30 AM CDT Oxygen Saturation 98% 08/27/2024 8:30 AM CDT Inhaled Oxygen Concentration - - Weight 83.5 kg (184 lb) 09/27/2024 11:42 AM CDT Height 162.6 cm (5' 4) 09/27/2024 11:42 AM CDT Body Mass Index 31.58 09/27/2024 11:42 AM CDT Plan of Treatment Health Maintenance Due Date Last Done Comments Colon Cancer Screening-Colonoscopy 1955 Depression Screening 1955 Hepatitis C Screening 1955 Osteoporosis Screening-Bone Density Scan 1955 Hepatitis B Screening 1973 Zoster Vaccine (1 of 2) 06/01/2015 04/06/2015 Well Visit 65+ 02/14/2020 Covid-19 Vaccine (3 - Modern a risk series) 08/25/2020 07/28/2020, 06/30/2020 Pneumococcal vaccine 65+ (2 of 2 - PCV) 07/11/2021 07/11/2020 Fall Risk Assessment 03/19/2022 03/19/2021, 03/08/20 21 Influenza Vaccine (#1) 2024 , 2021, 02/21/2020, Additional history exists Breast Cancer Screening-Mammogram 09/27/2025 09/27/2024, 09/19/2023, 09/19/2023, Additional history exists DTaP/Tdap/Td Vaccine (2 - Td or Tdap) 12/20/2025 12/21/2015 Medical Devices Implanted Type Area Block Machine Operator Device Identifier Shelf Expiration Date Model / Serial / Lot TensorComm [id number] Magseed 18ga 7cm Marker Breast Biopsy - [id number] Implanted:Qty : 1 on 02/15/2021 at [facility] Right: Breast TensorComm [id number] 09/25/2024 [id number] Procedures Procedure Name Priority Date/Time Associated Diagnosis Comments SCREENING MAMMOGRAM BILATERAL W RIGOBERTO Schedule Routine, Read Routine (OP Routine) 09/27/2024 11:48 AM CDT Carcinoma of overlapping sites of right breast in female, estrogen receptor positive (HCC) Ductal carcinoma in situ (DCIS) of right breast Encounter for screening mammogram for malignant neoplasm of breast EGFR Routine 08/27/2024 8:19 AM CDT Carcinoma of overlapping sites of right breast in female, estrogen receptor positive (HCC) shelter current use of aromatase inhibitor DIFFERENTIAL AUTO Routine 08/27/2024 8:1 9 AM CDT Carcinoma of overlapping sites of right breast in female, estrogen receptor positive (HCC) 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 COMPREHENSIVE METABOLIC PANEL Routine 08/27/2024 8:19 AM CDT Carcinoma of overlapping sites of right breast in female, estrogen receptor positive (HCC) shelter current use of aromatase inhibitor CBC WITH AUTO DIFFERENTIAL Routine 08/27/2024 8:19 AM CDT Carcinoma of overlapping sites of right breast in female, estrogen receptor positive (HCC) shelter current use of aromatase inhibitor from Last 3 Months Results * Screening Mammogram Bilateral W Rigoberto (09/27/2024 11:48 AM CDT) Anatomical Region Laterality Modality Breast Bilateral Mammography Impressions 09/28/2024 12:13 PM CDT Bilateral No evidence of malignancy in either breast. OVERALL BI-RADS FINAL ASSESSMENT: 2 - Benign RECOMMENDATION: Recommend bilateral annual screening mammography. Narrative 09/28/2024 12:13 PM CDT EXAMINATION: Screening Mammogram Bilateral W Rigoberto: 09/27/2024 COMPARISON: Relevant prior studies available at the time of interpretation were reviewed. TECHNIQUE: Mammography was performed with 2D and digital breast tomosynthesis (DBT) images. CAD was utilized. BREAST PARENCHYMAL COMPOSITION: There are scattered areas of fibroglandular density. FINDINGS: Bilateral There is no suspicious mass, calcification, or architectural distortion in either breast. Right breast status post breast conservation therapy. There are no significant changes from the prior study. us Audrey Harrell MD IMG MAMMO PROCEDURES Fi nal Result * eGFR (08/27/2024 8:19 AM CDT) eGFR 60 >=60 mL/min/1. 73 m2 Comment: Interpretive Data Reference Interval Normal >/= 90 mL/min/1.73m2 Mildly decreased* 60 - 89 mL/min/1.73m2 Mildly to moderately decreased 45 - 59 mL/min/1.73m2 Moderately to severely decreased 30 - 44 mL/min/1.73m2 Severely decreased 15 - 29 mL/min/1.73m2 Kidney Failure < 15 mL/min/1.73m2 *Relative to young adult level Estimated glomerular filtration rate is determined by the 2020 CKD-EPI equation recommended by the National Kidney Foundation (A Unifying Approach to GFR Estimation: Recommendations of the NKF-ASK Task Force on Reassessing the Inclusion of Race in Diagnosing Kidney Disease, JASN 2020). The CKD-EPI equation should not be used for patients with unstable renal function and has not been validated in children and those over 70. Current interpretive data was last reviewed 2021. Blood 08/27/2024 8:19 AM CDT 08/27/2024 8:21 AM CDT us Larissa Gomez CHIEF OPERATOR REFORMER LAB BLOOD ORDERABLES Final Resu lt [facility] Department [place] [address] * Differential, auto (08/27/2024 8:19 AM CDT) Neutrophil abs 2.62 1.50 - 6.50 K/cumm Comment:Testing performed by : [facility], [address] [place] [address] Lymphocyte abs 1.24 0.80 - 3.30 K/cumm [facility] Comment:Testing performed by : [facility], [address] [place], [place] [phone] Monocyte abs 0.47 0.20 - 0.80 K/cumm [facility] Comment:Testing performed by : [facility], [address] [place] [address] Eosinophil abs 0.28 0.00 - 0.50 K/cumm [facility] Comment:Testing performed by : [facility], [address] [place] [address] Basophil abs 0.04 0.00 - 0.10 K/cumm [facility] Comment:Testing performed by : [facility], [address] [place] [phone] Neutrophil pct 56.2 % [facility] Comment: Interpretive Data Percent cell count reference ranges are not reported, since discordance with absolute values may lead to misinterpretation of CBC data. Current Interpretive Data was last revised on 2017. Testing performed by: [facility], [address] [place] [phone] Lymphocyte pct 26.6 % [facility] Comment: Interpretive Data Percent cell count reference ranges are not reported, since discordance with absolute values may lead to misinterpretation of CBC data. Current Interpretive Data was last revised on 2017. Testing performed by: [facility], [address] [place] [phone] Monocyte pct 10.2 % [facility] Comment: Interpretive Data Percent cell count reference ranges are not reported, since discordance with absolute values may lead to misinterpretation of CBC data. Current Interpretive Data was last revised on 2017. Testing performed by: [facility], [address] [place] [phone] Eosinophil pct 6.1 % [facility] Comment: Interpretive Data Percent cell count reference ranges are not reported, since discordance with absolute values may lead to misinterpretation of CBC data. Current Interpretive Data was last revised on 2017. Testing performed by: [facility], [address] [place] [phone] Basophil pct 0.9 % [facility] Comment: Interpretive Data Percent cell count reference ranges are not reported, since discordance with absolute values may lead to misinterpretation of CBC data. Current Interpretive Data was last revised on 2017. Testing performed by: [facility], [address] [place] [phone] Blood 08/27/2024 8:19 AM CDT 08/27/2024 8:20 AM CDT us Larissa Gomez CHIEF OPERATOR REFORMER LAB BLOOD ORDERABLES [facility] Department [place] [address] * (ABNORMAL) CBC with auto differential (08/27/2024 8:19 AM CDT) WBC 4.66 3.80 - 9.90 K/cumm Comment:Testing performed by : [facility], [address] [place] [address] Hgb 11.5(L) 11.9 - 15.5 g/dL [facility] Comment:Testing performed by : [facility], [address] [place] [address] Hct 33.9(L) 35.6 - 45.5 % [facility] Comment:Testing performed by : [facility], [address] [place] [address] Plt 348 150 - 400 K/cumm [facility] Comment:Testing performed by : [facility], [address] [place] [address] MPV 7.2 6.8 - 10.4 fL [facility] Comment:Testing performed by : [facility], [address] [place] [address] RBC 3.84(L) 3.90 - 5.20 M/cumm [facility] Comment:Testing performed by : [facility], [address] [place] [address] MCV 88.2 81.3 - 96.4 fL [facility] Comment:Testing performed by : [facility], [address] [place] [address] MCH 29.8 27.1 - 33.3 pg [facility] Comment:Testing performed by : [facility], [address] [place] [address] MCHC 33.8 32.3 - 35.7 g/dL [facility] Comment:Testing performed by : [facility], [address] [place] [address] RDW CV 14.3 11.1 - 14.9 % [facility] Comment:Testing performed by : [facility], [address] [place] [address] NRBC abs 0.00 0.00 - 0.01 K/cumm [facility] Comment:Testing performed by : [facility], [address] [place] [address] Blood 08/27/2024 8:19 AM CDT 08/27/2024 8:20 AM CDT us Larissa Gomez CHIEF OPERATOR REFORMER LAB BLOOD ORDERABLES Final Resu lt [facility] Department [place] [address] * (ABNORMAL) Comprehensive metabolic panel (08/27/2024 8:19 AM CDT) Sodium 142 135 - 145 mmol/L Potassium, pl 4.4 3.3 - 4.9 mmol/L [facility] Chloride 103 97 - 110 mmol/L [facility] CO2 31 22 - 32 mmol/L [facility] Anion gap 8 2 - 15 mmol/L [facility] BUN 18 6 - 25 mg/dL [facility] Creatinine 1.02 0.60 - 1.10 mg/dL [facility] Glucose 110 70 - 199 mg/dL [facility] Comment: Interpretive Data Fasting glucose >/= 126 mg/dl is diagnostic for diabetes. Fasting is defined as no caloric intake for at least 8 hours. Fasting glucose between 100 mg/dl to 125 mg/dl is diagnostic of prediabetes. In a patient with classic symptoms of hyperglycemia or hyperglycemic crisis, a random glucose >/= 200 mg/dl is diagnostic for diabetes. In the absence of unequivocal hyperglycemia, results should be confirmed by repeat testing. The classification and Diagnosis of Diabetes Diabetes Care 202; 46: S19-S40. Current interpretive data was last revised 2022. Calcium 9.6 8.5 - 10.3 mg/dL [facility] Bilirubin, total 0.3 0.1 - 1.2 mg/dL [facility] Protein, pl 7.0 6.5 - 8.5 g/dL [facility] Albumin 4.1 3.5 - 5.0 g/dL [facility] Alk phos 131(H) 40 - 130 Units/L [facility] ALT 14 7 - 45 Units/L [facility] AST 22 10 - 45 Units/L [facility] Blood 08/27/2024 8:19 AM CDT 08/27/2024 8:21 AM CDT us Larissa Gomez CHIEF OPERATOR REFORMER LAB BLOOD ORDERABLES Final Resu lt [facility] Department [place] [address] from Last 3 Months Insurance MEDICARE [facility] MEDICARE [employer] [place] MEDIC[place] [employer] [place] Care Teams Disease Management Nurse Relationship Specialty Start Date End Date Pranay Velez MD PCP - General Internal Medicine 12/26/20 Margaret George NP Nurse Practitioner Nurse Practitioner 02/01/21 Medhat Britton MD [address] [place] [address] Consulting Physician Medical Oncology 03/14/21
--- OUTSIDE RECORDS SUMMARY | 2024-11-23 11:40 | XMS_ITS | Clinical Summary ---
Author Organization [facility] Address [address] [place] [address] Care Team Providers Care Trust Vault Clerk Name Role Phone Eriberto Milner MD Primary Care Provider [phone] Dilma Brown MD Unavailable Allergies Active Allergy Reactions Criticality Noted Date Comments Hydrochlorothiazide-Triamterene Hives High 07/28 Medications dilTIAZem ER (TIAZAC) 300 MG 24 hr capsule Take 1 capsule (300 mg total) by mouth daily. Active lisinopril-hydr oCHLOROthiazide (ZESTORETIC) 20-12.5 MG tablet Take 1 tablet by mouth daily. Active atorvastatin (LIPITOR) 20 MG tablet Take 1 tablet (20 mg total) by mouth nightly at bedtime. Active magnesium oxide (MAG-OX) 250 MG tablet Take 1 tablet (250 mg total) by mouth daily. Active Calcium Carb-Magnesium Carb 250-300 MG Tab 06/17/2022 Active Active Problems No known active problems Encounters Date Type Department Care Team Description 11/23/2024 Orders Only [facility] [address] [place], [place] [address] Dilma Brown MD from Last 3 Months Family History Medical History Relation Comments Heart Attack Father Relation Status Comments Father Social History Tobacco Use Types Packs/Day Years Used Date Smoking Tobacco: Never Assessed Tobacco Cessation:Counseling Given: Not Answered Comments Unknown Sex and Gender Information Value Date Recorded Sex Assigned at Not on file Legal Sex Female 8:47 PM CDT Gender Identity Not on file Sexual Orientation Not on file Last Filed Vital Signs Vital Sign Reading Time Taken Comments Blood Pressure 134/82 11/27/2023 1:56 PM CDT Pulse 68 11/27/2023 1:55 PM CDT Temperature - - Respiratory Rate 20 11/27/2023 1:55 PM CDT Oxygen Saturation 97% 11/27/2023 1:55 PM CDT Inhaled Oxygen Concentration - - Weight 81.6 kg (180 lb) 11/27/2023 1:55 PM CDT Height 160 cm (5' 3) 11/27/2023 1:55 PM CDT Body Mass Index 31.89 11/27/2023 1:55 PM CDT Plan of Treatment Upcoming Encounters Date Type Department Care Team (Late st Contact Info) Description 12/02/2024 10:30 AM CDT Office Visit [facility] [phone] Dilma Brown MD [address] [place] [address] Health Maintenance Due Date Last Done Comments Colorectal Cancer Screening Colonoscopy (10 Years) 1955 Hepatitis C 1973 Zoster Vaccines (2 of 3) 06/01/2015 04/06/2015 Annual Medicare Wellness Visit 02/14/2020 Dexa Scan (General) 02/14/2020 Pneumococcal Vaccine: 50+ Years (2 of 2 - PCV) 07/11/2021 07/11/2020 COVID-19 Vaccine (4 - 2023-2 5 season) 2023 03/20/2021, 07/28/2020, 06/30/2020 Mammogram Screening 09/18/2025 09/19/2023, 09/17/2022, 09/14/2021 DTaP, Tdap and Td Vaccines ( 2 - Td or Tdap) 12/20/2025 12/21/2015 RSV Immunization or 60+ Years (1 - 1-dose 75+ series) 2030 Meningococcal B Vaccine Aged Out No l onger eligible based on patient's age to complete this topic Meningococcal Vaccine Aged Out No maddi consuelo eligible based on patient's age to complete this topic RSV Immunizations Under 20 Months Aged Out No longer eligible b ased on patient's age to complete this topic Insurance MEDICARE [facility] [employer] Care Teams Trust Vault Clerk Relationship Specialty Start Date End Date Eriberto Milner MD [address] [place] [phone] PCP - General FAMILY PRACTICE 08/22/22 Dilma Brown MD [address] [place] [address] Consulting Physician CARDIOVASCULAR DISEASE 07/29/22
--- OUTSIDE RECORDS SUMMARY | 2024-11-23 11:40 | XMS_ITS | Encounter Summary ---
Author Organization [facility] Address [address] [place] [address] Phone Care Team Providers Care Director Speech And Hearing Name Role Phone Pranay Velez MD Primary Care Provider [phone] Margaret George NP Unavailable [phone] Medhat Britton MD Unavailable Encounter Details Date Type Department Care Team (Late st Contact Info) Description 10/05/2024 Results Follow-Up [facility] [address] [facility] [address] [place] [address] Larissa Gomez NP [address] [address] Surgical pathology Social History Tobacco Use Types Packs/Day Years Used Date Smoking Tobacco: Never Smokeless Tobacco: Never AUDIT-C Answer Date Recorded Q1: How often do you have a drink containing alc ohol? 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 Show No benefit ET years 5-10. Pt to complete 5 years of endocrine therapy with anastrozole in Mar 2026. She verbalizes understanding. documented in this encounter Plan of Treatment Not on file documented as of this encounter Visit Diagnoses Not on filedocumented in this encounter Care Teams Director Speech And Hearing Relationship Specialty Start Date End Date Pranay Velez MD PCP - General Internal Medicine 12/26/20 Margaret George NP Nurse Practitioner Nurse Practitioner 02/01/21 Medhat Britton MD [address] [place] [address] Consulting Physician Medical Oncology 03/14/21 documented as of this encounter
--- OUTSIDE RECORDS SUMMARY | 2024-11-23 11:40 | XMS_ITS | Encounter Summary ---
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 Gender Identity Female 01/27/2024 12:11 PM CDT Sexual Orientation Straight 01/27/2024 12 :11 PM CDT documented as of this encounter Plan of Treatment Not on file documented as of this encounter Procedures Procedure Name Priority Date/Time Associated Diagnosis Comments SCAN - RADIOLOGY/IMAGING 03/17/2024 documented in this encounter Results * SCAN - RADIOLOGY/IMAGING (03/17/2024) Anatomical Region Laterality Modality Other us Provider Scanning Final Result documented in this encounter Visit Diagnoses Not on filedocumented in this encounter Care Teams Supervisor Gluing Relationship Specialty Start Date End Date Pranay Velez MD PCP - General Internal Medicine 12/26/20 Margaret George NP Nurse Practitioner Nurse Practitioner 02/01/21 Medhat Britton MD [address] [place] [address] Consulting Physician Medical Oncology 03/14/21 documented as of this encounter
--- OUTSIDE RECORDS SUMMARY | 2024-11-23 11:40 | XMS_ITS | Referral Summary ---
Author Organization [facility] Address [address] [place] [address] Care Team Providers Care Mat Maker Name Role Phone Pranay Velez MD Primary Care Provider [phone] Margaret George NP Unavailable Medhat Britton MD Unavailable Encounters Date Type Department Care Team Description 10/05/2024 Results Follow-Up [facility] Oncology [address] [place] [phone] Larissa Gomez NP Surgical pathology 09/28/2024 Results Follow-Up [facility] Surgery [address] [place] [phone] Jina Luque NP Screening Mammogram Bilateral W Rigoberto 09/27/2024 Telephone [facility] Oncology [address] [place] [address] 8 [place] [address] Linda Lama, HUONG 09/27/2024 11:15 AM CDT - 09/27/2024 11:59 PM CDT Hospital Encounter [facility] [address] [place] [address] [address] [place] [address] Carcinoma of overlapping sites of right breast in female, estrogen receptor positive (HCC); Ductal carcinoma in situ (DCIS) of right breast; Encounter for screening mammogram for malignant neoplasm of breast Discharge Disposition: Discharge to home or self care 09/27/2024 11:00 AM CDT Office Visit [facility] Surgery [address] [facility] Floor 8 [place] [address] Jina Luque NP Carcinoma of overlapping sites of right breast in female, estrogen receptor positive (HCC) (Primary Dx); History of breast cancer; Encounter for screening mammogram for malignant neoplasm of breast 08/27/2024 8:15 AM CDT Lab 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 Carcinoma of overlapping sit es of right breast in female, estrogen receptor positive 03/18/2021 Cancer Staging:Clinical stage from 03/18/2021:Stage IA(cT1c, cN0, cM0, G3, ER+, [place]+, HER2-) - Signed by Catie Beaulieu MD PhD on 03/18/2021 Ductal carcinoma in situ (DCIS) of right breast 02/07/2021 Abnormal mammogram 01/09/2021 Resolved Problems Problem Noted Date Diagnosed Date Resolved Date Malignant neoplasm of right breast in female, estrogen receptor positive 02/26/2021 10/17/2021 Immunizations Immunization Administration Dates Next Due Influenza, Quadrivalent, Kamini l Culture-based MDCK, Preservative Free, Antibiotic Free, Intramuscular 01/29/2017 Influenza, Quadrivalent, Hig h Dose, Preservative Free, Intrr 2021,02/21/2020 Influenza, Quadrivalent, Spl it, Intramuscular 02/15/2016,03/13/2015 Influenza, Quadrivalent, Spl it, Preservative Free, Intramuscular 01/07/2019,02/18/2018,03/15/2013 Influenza, Trivalent, IM (MDV) 01/20/2014 Influenza, Unspecified 02/18/2023 Pneumococcal Polysaccharide PPV23 07/11/2020 Tdap 12/21/2015 ZOSTER LIVE 04/06/2015 Social History Tobacco Use Types Packs/Day Years [...] on file 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 Gender Identity Female 01/27/2024 12:11 PM CDT Sexual Orientation Straight 01/27/2024 12 :11 PM CDT Last Filed Vital Signs Vital Sign Reading [...] 09/27/2024 11:42 AM CDT Plan of Treatment Not on file Medical Devices Implanted Type Area House Visitor Device Identifier Shelf Expiration Date Model / Serial / Lot Fonality [id number] Magseed 18ga 7cm Marker Breast Biopsy - [id number] Implanted:Qty : 1 on 02/15/2021 at [facility] Right: Breast Fonality [id number] 09/25/2024 [id number] Procedures Procedure Name Priority Date/Time Associated Diagnosis [...] breast in female, estrogen receptor positive (HCC) prison current use of aromatase inhibitor DIFFERENTIAL AUTO Routine 08/27/2024 8:1 9 AM CDT Carcinoma of overlapping sites of right breast in female, estrogen receptor positive (HCC) 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 COMPREHENSIVE METABOLIC PANEL Routine 08/27/2024 8:19 AM CDT Carcinoma of overlapping sites of right breast in female, estrogen receptor positive (HCC) prison current use of aromatase inhibitor CBC WITH AUTO DIFFERENTIAL Routine 08/27/2024 8:19 AM CDT Carcinoma of overlapping sites of right breast in female, estrogen receptor positive (HCC) 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 from Last [...] 08/27/2024 8:21 AM CDT us Larissa Gomez [facility] LAB BLOOD ORDERABLES Final Resu lt [facility]ERS MEJIA [facility] Department [place] [address] * Differential, auto (08/27/2024 8:19 AM CDT) Pathologist [facility] Neutrophil abs 2.62 1.50 - 6.50 K/cumm Comment:Testing performed by : [facility], [address] [place] [phone] Lymphocyte abs 1.24 0.80 - 3.30 K/cumm ANDERS MEJIA Comment:Testing performed by : [facility], [address] [place] [phone] Monocyte abs 0.47 0.20 - 0.80 K/cumm ANDERS MEJIA Comment:Testing performed by : [facility], [address] [place] [phone] Eosinophil abs 0.28 0.00 - 0.50 K/cumm [facility] Comment:Testing performed by : [facility], [address] [place] [phone] Basophil abs 0.04 0.00 - 0.10 K/cumm [facility] Comment:Testing performed by : [facility], [address] [place] [phone] Neutrophil pct 56.2 % [facility] Comment: Interpretive Data Percent cell count reference ranges are not reported, since discordance with absolute values may lead to misinterpretation of CBC data. Current Interpretive Data was last revised on 2017. Testing performed by: [facility], [address] [place], [place] [phone] Lymphocyte pct 26.6 % [facility] Comment: Interpretive Data Percent cell count reference ranges are not reported, since discordance with absolute values may lead to misinterpretation of CBC data. Current Interpretive Data was last revised on 2017. Testing performed by: [facility], [address] [place] [phone] Monocyte pct 10.2 % [facility] Comment: Interpretive Data Percent cell count reference ranges are not reported, since discordance with absolute values may lead to misinterpretation of CBC data. Current Interpretive Data was last revised on 2017. Testing performed by: [facility], [address] [place] [phone] Eosinophil pct 6.1 % [facility] Comment: Interpretive Data Percent cell count reference ranges are not reported, since discordance with absolute values may lead to misinterpretation of CBC data. Current Interpretive Data was last revised on 2017. Testing performed by: [facility], [address] [place] [phone] Basophil pct 0.9 % [facility] Comment: Interpretive Data Percent cell count reference ranges are not reported, since discordance with absolute values may lead to misinterpretation of CBC data. Current Interpretive Data was last revised on 2017. Testing performed by: [facility], [address] [place] [address] Blood 08/27/2024 8:19 AM CDT 08/27/2024 8:20 AM CDT Larissa Gomez APPRAISER REAL ESTATE LAB BLOOD ORDERABLES [facility] Department [place] [address] * (ABNORMAL) CBC with auto differential (08/27/2024 8:19 AM CDT) WBC 4.66 3.80 - 9.90 K/cumm Comment:Testing performed by : [facility], [address] [place] [address] Hgb 11.5(L) 11.9 - 15.5 g/dL CERCHICHI MEJIA Comment:Testing performed by : [facility], [address] [place] [address] Hct 33.9(L) 35.6 - 45.5 % CERCHICHI BJ Comment:Testing performed by : [facility], [address] [place] [address] Plt 348 150 - 400 K/cumm CERCHICHI MEJIA Comment:Testing performed by : [facility], [address] [place] [address] MPV 7.2 6.8 - 10.4 fL CERCHICHI BJ Comment:Testing performed by : [facility], [address] [place] [address] RBC 3.84(L) 3.90 - 5.20 M/cumm CERCHICHI [facility] Comment:Testing performed by : [facility], [address] [place] [address] MCV 88.2 81.3 - 96.4 fL CERCHICHI BJ Comment:Testing performed by : [facility], [address] [place] [address] MCH 29.8 27.1 - 33.3 pg CERCHICHI BJ Comment:Testing performed by : [facility], [address] [place] [phone] MCHC 33.8 32.3 - 35.7 g/dL [facility] Comment:Testing performed by : [facility], [address] [place] [phone] RDW CV 14.3 11.1 - 14.9 % [facility] Comment:Testing performed by : [facility], [address] [place] [phone] NRBC abs 0.00 0.00 - 0.01 K/cumm [facility] Comment:Testing performed by : [facility], [address] [place] [phone] Blood 08/27/2024 8:19 AM CDT 08/27/2024 8:20 AM CDT Larissa Gomez APPRAISER REAL ESTATE LAB BLOOD ORDERABLES Final Resu lt [facility] Department [place] [address] * (ABNORMAL) Comprehensive metabolic panel (08/27/2024 8:19 AM CDT) Sodium 142 135 - 145 mmol/L Potassium, pl 4.4 3.3 - 4.9 mmol/L [facility] Chloride 103 97 - 110 mmol/L [facility] CO2 31 22 - 32 mmol/L [facility] Anion gap 8 2 - 15 mmol/L [facility] BUN 18 6 - 25 mg/dL [facility] Creatinine 1.02 0.60 - 1.10 mg/dL [facility] Glucose 110 70 - 199 mg/dL [facility] Comment: Interpretive Data Fasting glucose >/= 126 [...] 2022. Calcium 9.6 8.5 - 10.3 mg/dL [facility] Bilirubin, total 0.3 0.1 - 1.2 mg/dL [facility] Protein, pl 7.0 6.5 - 8.5 g/dL [facility] Albumin 4.1 3.5 - 5.0 g/dL [facility] Alk phos 131(H) 40 - 130 Units/L [facility] ALT 14 7 - 45 Units/L [facility] AST 22 10 - 45 Units/L [facility] Blood 08/27/2024 8:19 AM CDT 08/27/2024 8:21 AM CDT Larissa Gomez APPRAISER REAL ESTATE LAB BLOOD ORDERABLES Final Resu lt [facility] Department [place] [address] from Last 3 Months Insurance MEDICARE [facility] MEDICARE [facility] MEDICARE [facility] Care Teams Mat Maker Relationship Specialty Start Date End Date Pranay Velez MD PCP - General Internal Medicine 12/26/20 Margaret George NP Nurse Practitioner Nurse Practitioner 02/01/21 Medhat Britton MD [address] [place] [address] Consulting Physician Medical Oncology 03/14/21
--- OUTSIDE RECORDS SUMMARY | 2024-11-23 11:40 | XMS_ITS | Encounter Summary ---
Author Organization [facility] Address [address] [facility] [address] [place] [address] Phone Care Team Providers Care Air Traffic Supervisor Name Role Phone Pranay Velez MD Primary Care Provider [phone] Margaret George NP Unavailable [phone] Medhat Britton MD Unavailable Encounter Details Date Type Department Care Team (Late st Contact Info) Description 09/28/2024 Results Follow-Up 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
--- OUTSIDE RECORDS SUMMARY | 2024-11-23 11:40 | XMS_ITS | Encounter Summary ---
Author Organization [facility] Address [facility] [place] [address] Care Team Providers Care Spa Manager Name Role Phone Eriberto Milner MD Primary Care Provider [phone] Dilma Brown MD Unavailable Reason for Referral * Procedure (Routine) - New Request Specialty Diagnoses / Procedures Referred By Contac t Referred To Contact Diagnoses Precordial pain Familial hypercholesterolemia Essential (primary) hypertension Procedures NOT [facility] - ELECTROCARDIOGRAM, TRACING Dilma Brown MD [address] [place] [address] Phone: tel: fax: Referral ID Status Reason Start Date Expiration Date V isits Requested Visits Authorized [id number] New Request 11/23/2024 12/24/2025 1 1 Encounter Details Date Type Department Care Team (Late Contact Info) Description 11/23/2024 Orders Only [facility] [address] [facility], [place] [address] Dilma Brown MD [address] [place] [address] Social History Tobacco Use Types Packs/Day Years Used Date Smoking Tobacco: Never Assessed Comments Unknown Sex and Gender Information Value Date Recorded Sex Assigned at Not on file Legal Sex Female 8:47 PM CDT Gender Identity Not on file Sexual Orientation Not on file documented as of this encounter Plan of Treatment Upcoming Encounters Date Type Department Care Team (Late Contact Info) Description 12/02/2024 10:30 AM CDT Office Visit [facility] [address] [place] [address] Dilma Brown MD [address] [place], [place] [address] Scheduled Orders Name Type Priority Associated Diagnoses Orde r Schedule NOT [facility] - ELECTROCARDIOGRAM, TRACING EKG-NonRad Routine Precordial pain Familial hypercholesterolemia Essential (primary) hypertension Expected: 12/02/2024, Expires: 11/23/2025 documented as of this encounter Visit Diagnoses Diagnosis Precordial pain- Primary Familial hypercholesterolemia Pure hypercholesterolemia Essential (primary) hypertension Unspecified essential hypertension documented in this encounter Care Teams Spa Manager Relationship Specialty Start Date End Date Eriberto Milner MD [address] [place] [phone] PCP - General FAMILY PRACTICE 08/22/22 Dilma Brown MD [address] [place] [address] Consulting Physician CARDIOVASCULAR DISEASE 07/29/22 documented as of this encounter
--- OUTSIDE RECORDS SUMMARY | 2024-11-23 11:40 | XMS_ITS | Encounter Summary ---
Author Organization [facility] Address [address] [place] [address] Phone Care Team Providers Care Telecommunications Network Planner Name Role Phone Pranay Velez MD Primary Care Provider [phone] Margaret George NP Unavailable [phone] Medhat Britton MD Unavailable Encounter Details Date Type Department Care Team (Latest Contact Info) Description 03/31/2015 Orders Only [facility] Scanning, Provider Social History Tobacco Use Types Packs/Day Years Used Date Smoking Tobacco: Never Assessed Comments Unknown Sex and Gender Information Value Date Recorded Sex Assigned at Not on file 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 Gender Identity Female 01/27/2024 12:11 PM CDT Sexual Orientation Straight 01/27/2024 12 :11 PM CDT documented as of this encounter Plan of Treatment Not on file documented as of this encounter Procedures Procedure Name Priority Date/Time Associated Diagnosis Comments SCAN - RADIOLOGY/IMAGING 03/31/2015 documented in this encounter Results * SCAN - RADIOLOGY/IMAGING (03/31/2015) Anatomical Region Laterality Modality Other us Provider Scanning Final Result documented in this encounter Visit Diagnoses Not on filedocumented in this encounter Care Teams Telecommunications Network Planner Relationship Specialty Start Date End Date Pranay Velez MD PCP - General Internal Medicine 12/26/20 Margaret George NP Nurse Practitioner Nurse Practitioner 02/01/21 Medhat Britton MD [address] [place] [address] Consulting Physician Medical Oncology 03/14/21 documented as of this encounter
--- OUTSIDE RECORDS SUMMARY | 2024-11-23 11:40 | XMS_ITS | Clinical Summary ---
Author Organization [facility] Address [address] [place] [address] Phone Care Team Providers Care Wrister Name Role Phone Pranay Velez MD Primary Care Provider [phone] Allergies Active Allergy Reactions Criticality Noted Date Comments Triamterene-Hydrochlorothiazid Hives High 08/16 Medications diltiazem (CARDIZEM CD) 300 mg Controlled Delivery 24 hour capsule Take 300 mg by mouth daily. Active lisinopril-hydro chlorothiazide (ZESTORETIC) 20-12.5 mg tablet Take 1 Tablet by mouth daily. Active atorvastatin (LIPITOR) 20 mg tablet Take 20 mg by mouth Daily LATE. Active aspirin (ECOTRIN EC) 81 mg Tablet, Delayed Release (E.C.) Take 81 mg by mouth daily. Active Active Problems Patient Care Coordination No te Formatting of this note migh t be different from the original. Primary Care: Pranay Velez MD Referring Provider: Shauna Carranza NP [address] [address] Other: Problem Noted Date Diagnosed Date Abnormal mammogram 08/04/2015 Overview (08/17/2015): Right BIRADS 3 HTN (hypertension) Hyperlipidemia Family History Medical History Relation Name Comments Heart Disease Father Stroke Mother Breast Cancer Neg Hx Ovarian Cancer Neg Hx Relation Name Status Comments Father Mother Social History Tobacco Use Types Packs/Day Years Used Date Smoking Tobacco: Never Smokeless Tobacco: Never Alcohol Use Standard Drinks/Week Comments No 0 (1 standard drink = 0.6 oz pur e alcohol) Comments No Sex and Gender Information Value Date Recorded Sex Assigned at Not on file Legal Sex Female 1:50 PM CDT Gender Identity Not on file Sexual Orientation Not on file Last Filed Vital Signs Vital Sign Reading Time Taken Comments Blood Pressure 136/89 08/17/2015 1:38 PM CDT Pulse 79 08/17/2015 1:38 PM CDT Temperature - - Respiratory Rate - - Oxygen Saturation - - Inhaled Oxygen Concentration - - Weight 83 kg (183 lb) 08/17/2015 1:38 PM CDT Height 162.6 cm (5' 4) 08/17/2015 1:38 PM CDT Body Mass Index 31.41 08/17/2015 1:38 PM CDT Plan of Treatment Health Maintenance Due Date Last Done Comments DTAP/TDAP/TD VACCINES (1 - Tdap) 1974 COLORECTAL SCREENING 02/14/2000 Colorectal Cancer Screening 02/14/2000 FIT-DNA Q 3 years 02/14/2000 FIT/FOBT Q 1 year 02/14/2000 Flex Sig/CT Colonography Q 5 years 02/14/2000 PNEUMOCOCCAL VACCINE 50+ YEA RS (1 of 1 - PCV) 2005 ZOSTER VACCINE (1 of 2) 2005 BREAST CANCER SCREENING 05/02/2017 05/02/19 17, 04/10/2015, 03/31/2015, Additional history exists OSTEOPOROSIS SCREENING 02/14/2020 INFLUENZA VACCINE (#1) 2024 RSV VACCINE (60+ or ) (1 - 1-dose 75+ series) 2030 Procedures Procedure Name Priority Date/Time Associated Diagnosis Comments MAMMO 3D SINGH SCREEN BILAT W OR WO CAD Routine 05/02/2016 from Last 3 Months or Most Recently Relevant to Health Maintenance Results * MAMMO SCRN BILAT 3D SINGH W OR WO CAD (05/02/2016) Anatomical Region Laterality Modality Breast Bilateral Mammography Pranay Velez MD MAMMO ORDERABLES Edited Result - Final from Last 3 Months or Most Recently Relevant to Health Maintenance Insurance [employer] BLUE ACCESS/TRUE BLUE PPO Care Teams Wrister Relationship Specialty Start Date End Date Pranay Velez MD [address] [place] [address] PCP - General Internal Medicine 08/17/15
--- OUTSIDE RECORDS SUMMARY | 2024-11-23 11:40 | XMS_ITS | Encounter Summary ---
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 Gender Identity Female 01/27/2024 12:11 PM CDT Sexual Orientation Straight 01/27/2024 12 :11 PM CDT documented as of this encounter Plan of Treatment Not on file documented as of this encounter Procedures Procedure Name Priority Date/Time Associated Diagnosis Comments SCAN - RADIOLOGY/IMAGING 08/14/2022 documented in this encounter Results * SCAN - RADIOLOGY/IMAGING (08/14/2022) Anatomical Region Laterality Modality Other us Provider Scanning Final Result documented in this encounter Visit Diagnoses Not on filedocumented in this encounter Care Teams Shirt Ironer Relationship Specialty Start Date End Date Pranay Velez MD PCP - General Internal Medicine 12/26/20 Margaret George NP Nurse Practitioner Nurse Practitioner 02/01/21 Medhat Britton MD [address] [place] [address] Consulting Physician Medical Oncology 03/14/21 documented as of this encounter
== END 2024-11-23 11:37 | disposition home or self-care (01) ==
LOC: CHSIMG 11:38
PROVIDERS: PCP Internal Medicine; Visit Provider Internal Medicine
DX: R05.9 Cough, unspecified (principal); R06.00 Dyspnea, unspecified
CPT/HCPCS: 71046

== ENCOUNTER 2025-01-25 10:19 | Outpatient (CLI) | payer MEDICARE, OTHER, SELFPAY ==
--- NOTE | ~2025-01-25 | XR_ITS ---
EXAMINATION: XR hand RT min 3V, 01/25/2025 10:26 CDT HISTORY: R HAND PAIN / ATTN: THUMB COMPARISON: No comparisons available. Findings: No acute fracture or malalignment. No significant degenerative changes. Soft tissues unremarkable. Impression: No acute fracture or malalignment. Reviewed, dictated and finalized at location P. Impression: No acute fracture or malalignment.
--- OUTSIDE RECORDS SUMMARY | 2025-01-25 11:09 | XMS_ITS | Encounter Summary ---
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
--- OUTSIDE RECORDS SUMMARY | 2025-01-25 11:09 | XMS_ITS | Encounter Summary ---
Author Organization [facility] Address [address] [place] [address] Phone Care Team Providers Care Child And Family Counselor Name Role Phone Pranay Velez MD Primary Care Provider [phone] Margaret George NP Unavailable [phone] Medhat Britton MD Unavailable Encounter Details Date Type Department Care Team (Latest Contact Info) Description 03/31/2015 Orders Only [facility] Scanning, Provider Social History Tobacco Use Types Packs/Day Years Used Date Smoking Tobacco: Never Assessed Comments Unknown Sex and Gender Information Value Date Recorded Sex Assigned at Not on file 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
--- OUTSIDE RECORDS SUMMARY | 2025-01-25 11:09 | XMS_ITS | Clinical Summary ---
Author Organization [facility] Address [facility] [place] [address] Care Team Providers Care Vat House Supervisor Name Role Phone Eriberto Milner MD Primary Care Provider [phone] Dilma Brown MD Unavailable Allergies Active Allergy [...] Encounters Date Type Department Care Team Description 01/11/2025 8:42 AM CDT - 01/11/2025 11:59 PM CDT Hospital Encounter [facility] [address] [place] [address] Pranay Peña MD Discharge Disposition: Home or Self Care (Routine Discharge) 01/11/2025 Travel 12/31/2024 Telephone [facility] [address] [place] [address] Dilma Brown MD Appointment Request 12/30/2024 12:30 PM CDT Office Visit [facility] [address] [place] [address] Dilma Brown MD Heart Problem 12/30/2024 Scan [facility] [address] [place] [address] Scanned, Doc Pccl 12/23/2024 Orders Only [facility] [address] [place] [address] Dilma Brown MD 12/01/2024 Telephone [facility] [address] [place] [address] Dilma Brown MD Appointment Reminder 11/23/2024 Orders Only [facility] [address] [place] [address] Dilma Brown MD from Last 3 Months Family History Medical History Relation Comments Heart Attack Father Relation Status Comments Father Social History Tobacco Use Types Packs/Day Years Used Date Smoking Tobacco: Never Assessed Tobacco Cessation:Counseling Given: Not Answered Comments Unknown Sex and Gender Information Value Date Recorded Sex Assigned at Female 01/11/2025 8:38 AM CDT Legal Sex Female 8:47 PM CDT Gender Identity Not on file Sexual Orientation Not on file Last Filed Vital Signs Vital Sign Reading Time Taken Comments Blood Pressure 140/84 12/30/2024 2:25 PM CDT Pulse 63 12/30/2024 2:25 PM CDT Temperature - - Respiratory Rate 16 12/30/2024 2:25 PM CDT Oxygen Saturation 99% 12/30/2024 2:25 PM CDT Inhaled Oxygen Concentration - - Weight 82.2 kg (181 lb 3.2 oz) 12/30/2024 2:25 P M CDT Height 160 cm (5' 3) 12/30/2024 2:25 PM CDT Body Mass Index 32.1 12/30/2024 2:25 PM CDT Plan of Treatment Upcoming Encounters Date Type Department Care Team (Late st Contact Info) Description 01/19/2026 3:15 PM CDT [facility] [address] [place] [phone] Dilma Brown MD [address] [place] [phone] Health Maintenance Due Date Last Done Comments Colorectal Cancer Screening Colonoscopy (10 Years) 1955 Hepatitis C 1973 Annual Medicare Wellness Visit 02/14/2020 Dexa Scan (General) 02/14/2020 COVID-19 Vaccine ( season) 2024 02/08/2022, 09/14/2021, 03/20/2021, Additional history exists DTaP, Tdap and Td Vaccines (2 - Td or Tdap) 12/20/2025 12/21/2015 Mammogram Screening 09/27/2026 09/27/2024, 09/19/2023, 09/17/2022, Additional history exists Zoster Vaccines Completed 03/28/2023, 11/27, 04/06/2015 Pneumococcal Vaccine: 50+ Years Completed 02/02/2024, 07/11/2020 RSV Immunization or 60+ Years Completed 02/12/2024 Meningococcal B Vaccine Aged Out No l onger eligible based on patient's age to complete this topic Meningococcal Vaccine Aged Out No maddi consuelo eligible based on patient's age to complete this topic RSV Immunizations Under 20 Months Aged Out No longer eligible based on patient's age to complete this topic Procedures Procedure Name Priority Date/Time Associated Diagnosis Comments XR ESOPHAGRAM/BARIUM SWALLOW Routine 01/11/2025 9:20 AM CDT Chronic cough GERD (gastroesophageal reflux disease) ELECTROCARDIOGRAM, TRACING Routine 12/30/2024 Familial hypercholesterolemia Essential (primary) hypertension from Last 3 Months Results * XR ESOPHAGRAM/BARIUM SWALLOW (01/11/2025 9:20 AM CDT) Anatomical Region Laterality Modality Chest, Abdomen Radiographic Gabby ging, Radiographic Imaging 01/11/2025 9:31 AM CDT Impressions 01/11/2025 9:33 AM CDT IMPRESSION: Esophageal dysmotility as described. Otherwise unremarkable. Ordered By: PRANAY PEÑA Interpreted By: Sj Hall MD, 01/11/2025 9:31 AM Narrative 01/11/2025 9:33 AM CDT [address] [place] [address] Examination: Esophagogram. Exam time: 0919 hours. Clinical history: Chronic cough. Comparison: None. Technique: Fluoroscopic monitoring with spot imaging. 2.1 minutes of fluoroscopy time was utilized. Twelve digital spot and/or digital radiographs were obtained. Findings: The swallowing mechanism is normal. No nasopharyngeal reflux or aspiration was observed. Spot views of the hypopharynx are unremarkable. The esophagus is intact. There is moderate esophageal dysmotility with diminution of the primary wave, tertiary contractions, stasis in the middle and distal thirds and prolongation of clearance. No spontaneous or inducible gastroesophageal reflux was observed fluoroscopically. Limited evaluation of the stomach shows no evidence of gastric outlet obstruction. Procedure Note Sj Hall MD - 01/11/[address] [place] [address] Examination: Esophagogram. Exam time: 0919 hours. Clinical history: Chronic cough. Comparison: None. Technique: Fluoroscopic monitoring with spot imaging. 2.1 minutes offluoroscopy time was utilized. Twelve digital spot and/or digitalradiographs were obtained. Findings: The swallowing mechanism is normal. No nasopharyngeal reflux oraspiration was observed. Spot views of the hypopharynx are unremarkable. The esophagus is intact. There is moderate esophageal dysmotility withdiminution of the primary wave, tertiary contractions, stasis in themiddle and distal thirds and prolongation of clearance. No spontaneous orinducible gastroesophageal reflux was observed fluoroscopically. Limited evaluation of the stomach shows no evidence of gastric outletobstruction. IMPRESSION: Esophageal dysmotility as described. Otherwise unremarkable. Ordered By: PRANAY PEÑA Interpreted By: Sj Hall MD, 01/11/2025 9:31 AM Pranay Peña MD FLUOROSCOPY Final Result * NOT [facility] - ELECTROCARDIOGRAM, TRACING (12/30/2024) Dilma Brown MD PROCEDURES-UNRESULTED Final Resu lt from Last 3 Months Insurance MEDICARE [employer] Care Teams Vat House Supervisor Relationship Specialty Start Date End Date Eriberto Milner MD [address] [place] [phone] PCP - General FAMILY PRACTICE 08/22/22 Dilma Brown MD [address] [place] [address] Consulting Physician CARDIOVASCULAR DISEASE 07/29/22
--- OUTSIDE RECORDS SUMMARY | 2025-01-25 11:09 | XMS_ITS | Clinical Summary ---
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 Carcinoma of overlapping sit es of right breast in female, estrogen receptor positive 03/18/2021 Cancer Staging:Clinical stage from 03/18/2021:Stage IA(cT1c, cN0, cM0, G3, ER+, AK+, HER2-) - Signed by Catie Beaulieu MD [...] on file 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 Gender Identity Female 01/27/2024 12:11 PM CDT [...] 12/20/2025 12/21/2015 Medical Devices Implanted Type Area Business Unit Director Device Identifier Shelf Expiration Date Model / Serial / Lot Easy Food [id number] [id number] 18ga 7cm Marker Breast Biopsy - [id number] Implanted:Qty : 1 on 02/15/2021 at [facility] Right: Breast [employer] [id number] 09/25/2024 [id number] Procedures Procedure Name Priority Date/Time Associated Diagnosis Comments SCREENING MAMMOGRAM BILATERAL W RIGOBERTO Schedule Routine, Read Routine (OP Routine) 09/27/2024 11:48 AM CDT Carcinoma of overlapping sites of right breast in female, estrogen receptor positive (HCC) Ductal carcinoma in situ (DCIS) of right breast Encounter for screening mammogram for malignant neoplasm of breast from Last 3 Months or Most Recently Relevant to Health Maintenance Results * Screening Mammogram Bilateral W Rigoberto [...] no significant changes from the prior study. Audrey Harrell MD IMG MAMMO PROCEDURES Fi nal Result from Last 3 Months or Most Recently Relevant to Health Maintenance Insurance MEDICARE [facility] MEDICARE [facility] MEDICARE [facility] [place] [address] Care Teams Card Tape Converter Operator Relationship Specialty Start Date End Date Pranay Velez MD PCP - General Internal Medicine 12/26/20 Margaret George NP Nurse Practitioner Nurse Practitioner 02/01/21 Medhat Britton MD [address] [place] [address] Consulting Physician Medical Oncology 03/14/21
--- OUTSIDE RECORDS SUMMARY | 2025-01-25 11:09 | XMS_ITS | Clinical Summary ---
Author Organization [facility] Address [address] [place] [address] Phone Care Team Providers Care Active Directory Administrator Name Role Phone Pranay Velez MD Primary Care Provider Allergies Active Allergy Reactions Criticality Noted Date [...] MD Referring Provider: Shauna Carranza NP [address] [address] Other: Problem Noted Date Diagnosed Date Abnormal [...] BCBS BLUE ACCESS/TRUE BLUE PPO Care Teams Active Directory Administrator Relationship Specialty Start Date End Date Pranay Velez MD [address] [place] [address] PCP - General Internal Medicine 08/17/15
--- OUTSIDE RECORDS SUMMARY | 2025-01-25 11:09 | XMS_ITS | Encounter Summary ---
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
== END 2025-01-25 10:20 | disposition home or self-care (01) ==
PROVIDERS: PCP Internal Medicine; Visit Provider Internal Medicine
DX: M79.641 Pain in right hand (principal)
CPT/HCPCS: 73130